=== PATIENT | male | born 1935 | race Caucasian/White ===

== ENCOUNTER 2016-07-17 17:44 | Inpatient (IN) | payer OTHER ==
[~2016-07-17] VITALS: Ht 182.9 cm; Wt 97.6 kg
[~2016-07-17 17:44] MED LIST: AMOX1TAB43 PO; ASPI81TA28 PO; BENZ100C84 PO; CLR10 PO; DOCU100C31 PO; FERR1TAB23 PO; FINA5TAB PO; FLUT0.15 NAE; LORA-741 PO; MELATAB2 PO; OXGN; POLY3350 PO; PRLSR20 PO; ROPI0.5T15 PO; RRALBUT083 INH; SYMIN160 INH; TRAZ100T29 PO
[2016-07-17] MEDS ORDERED: ALBUT/IPRATROP 3MG/0.5MG NEB 3 ML VIAL INH STA ×2 (18:50→21:42)
--- NOTE | 2016-07-17 19:05 | DIAGNOSTIC IMAGING REPORT ---
CHEST ONE VIEW PORTABLE CLINICAL HISTORY: Torus of breath COMPARISON STUDY: 05/12/2016 FINDINGS: The heart is enlarged. There is radiographic evidence of congestive failure/fluid overload. There are low lung volumes. There is a small left pleural effusion. There is a persistent left basilar airspace opacities..[ IMPRESSION: 1. Cardiomegaly and radiographic evidence of mild congestive failure/fluid overload 2. Small left pleural effusion 3. Low lung volumes 4. Left upper lobe atelectasis/consolidation Electronically signed by: Tyrone Coombs M.D. 07/17/2016 7:04 PM Dictated Date/Time: 07/17/2016 7:03 PM
[2016-07-17] MEDS ORDERED: METHYLPREDNISOLONE 125 MG VIAL IV STA (19:13)
[2016-07-17 19:40] LABS: BASO % 0.1 %; BASO ABS # 0.01 K/uL (0-0.2); COMPLETE YES; EOS % 0.4 %; HEMATOCRIT 38.6 % (42-52); IG% 0.7 %; LYMPH % 7.6 %; LYMPH ABS # 0.93 K/uL (1.2-3.4); MEAN CELL VOLUME 94.1 fL (80-100); MEAN CORPUSCULAR HEMOGLOBIN 31.5 pg (25-34); MEAN CORPUSCULAR HGB CONC 33.4 g/dl (32-36); MEAN PLATELET VOLUME 9.1 fL (7.4-10.4); MONO % 7.5 %; NEUT % 83.7 %; PLATELET COUNT 141 K/uL (130-400); WHITE BLOOD COUNT 12.18 K/uL (4.8-10.8)
[2016-07-17 19:54] LABS: PARTIAL THROMBOPLASTIN RATIO 1.2
[2016-07-17] MEDS ORDERED: SULF800T23 PO (19:59)
[2016-07-17 20:05] LABS: ALT/SGPT 18 U/L (12-78); AST/SGOT 17 U/L (15-37); BLOOD UREA NITROGEN 16 mg/dl (7-18); BUN/CREATININE RATIO 12.3 (10-20); CALCIUM 8.1 mg/dl (8.5-10.1); CARBON DIOXIDE 29 mmol/L (21-32); CHLORIDE 96 mmol/L (98-107); GLUCOSE 109 mg/dl (70-99); POTASSIUM 4.7 mmol/L (3.5-5.1); SODIUM 133 mmol/L (136-145)
[2016-07-17 20:10] LABS: ALB/GLOB RATIO 1.3 (0.9-2); ALKALINE PHOSPHATASE 107 U/L (45-117); CKMB/CK RATIO 2.7 (0-3.0)
[2016-07-17] MEDS ORDERED: OPTIRAY 320 IV PRN (22:15)
--- NOTE | 2016-07-17 22:47 | DIAGNOSTIC IMAGING REPORT ---
CT ANGIOGRAM OF THE CHEST CLINICAL HISTORY: Atypical chest pain and cough. COMPARISON STUDY: Chest x-ray dated 07/17/2016 TECHNIQUE: Following the IV administration of 102 mL of Optiray-320, CT angiogram of the thorax was performed from the thoracic inlet to the lung bases utilizing the pulmonary embolus protocol. Images are reviewed in the axial, sagittal, and coronal planes. IV contrast was administered without complication. MIP imaging was performed. CT DOSE: 636.73 mGy.cm FINDINGS: No pathologically enlarged axillary mediastinal or hilar lymph nodes were visualized. PA sitting thoracic aorta measures 37 mm. No intimal flaps are visualized. There were no pulmonary artery filling defects to indicate acute pulmonary embolism. No pleural effusions are visualized. There is dense bilateral lower lobe atelectasis/consolidation. Evaluation of the pulmonary arteries and the lung parenchyma is somewhat limited due to respiratory motion artifact. There are 2 hepatic hypodensities, the largest of which measures 21 mm. The larger lesion approaches water attenuation likely represents a cyst. The smaller lesion slightly exceeds water attenuation, and is therefore indeterminate. There is fatty atrophy the pancreas. There is marked tracheomalacia. The AP diameter of the trachea is 3 mm IMPRESSION: 1. No CT evidence of acute pulmonary embolism 2. Marked tracheomalacia 3. Dense bilateral lower lobe atelectasis/consolidation Electronically signed by: Tyrone Coombs M.D. 07/17/2016 10:45 PM Dictated Date/Time: 07/17/2016 10:40 PM
[2016-07-17] MEDS ORDERED: PIPERACILLIN/TAZOBACTAM 4.5 GM/100ML D5W IV STA (23:20)
--- NOTE | 2016-07-17 23:22 | EMERGENCY ROOM VISIT NOTE ---
History Report prepared by Joan: Priyanka Geller Under the Supervision of: Dr. Mahamed Renteria D.O. First contact with patient: 18:22 Chief Complaint: SHORTNESS OF BREATH Stated Complaint: SOB History of Present Illness The patient is a 81 year old male who presents to the Emergency Room with complaints of worsening shortness of breath beginning today. The patient states that he is having trouble breathing. For the past 2 weeks the patient has experienced shortness of breath and a productive cough with clear sputum. He states that today his Pulse Ox dropped to 72%. His family that was home with him put him on his at home oxygen of 3 liters and gave him a nebulizer treatment. During this drop in his oxygen stats, the patient's family states that he turned blue. The patient notes that in April he had similar symptoms. He denies recent illness or exposure to illness. Source of History: patient Onset: today Position: other (global) Quality: other (shortness of breath) Timing: worsening Associated Symptoms: + cough Note: Patient notes sputum with cough and trouble breathing. Review of Systems See HPI for pertinent positives & negatives. A total of 10 systems reviewed and were otherwise negative. Past Medical & Surgical Medical Problems: (1) Collapsed lung (2) COPD (chronic obstructive pulmonary disease) (3) Diabetes mellitus, new onset (4) Pneumonia (5) Respiratory distress Family History Patient reports no known family medical history. Social History Smoking Status: Former Smoker Marital Status: Housing Status: lives with family Occupation Status: retired Current/Historical Medications Scheduled Aspirin (Aspirin Ec), 81 MG PO DAILY Budesonide/Formoterol Fumarate (Symbicort 160/4.5 Inhaler ), 2 PUFFS INH BID Ferrous Sulfate (Iron), 325 MG PO Q2D Finasteride (Proscar), 5 MG PO DAILY Fluticasone Propionate (Nasal) (Flonase Allergy Relief), 2 SPRAY WILLY DAILY Loratadine (Claritin), 10 MG PO DAILY Lorazepam (Ativan), 1 MG PO HS Melatonin (Melatonin Maximum Strengt), 5 MG PO HS Omeprazole (Prilosec), 20 MG PO DAILY Oxygen (Oxygen), 3 LITERS NA CONTINOUS Polyethylene Glycol 3350 (Polyethylene Glycol 3350), 17 GM PO DAILY Ropinirole (Requip), 0.5 MG PO DAILY@ NOON Ropinirole (Requip), 1 MG PO HS Sulfa/Trimethoprim (Bactrim Ds 800MG/160MG), 1 TAB PO BID Trazodone Hcl (Trazodone), 100 MG PO HS Scheduled PRN Albuterol Sulf (Albuterol Sulfate), 3 ML INH QID PRN for SOB/Wheezing Allergies Coded Allergies: Ciprofloxacin (Unverified Allergy, Intermediate, unknown, 07/17/16) Nitrofurantoin (Unverified Allergy, Intermediate, unknown, 07/17/16) Physical Exam Vital Signs Date Time Temp Pulse Resp B/P Pulse Ox O2 Delivery O2 Flow Rate FiO2 07/17/16 23:02 103 22 120/67 91 Nasal Cannula 4.0 07/17/16 23:01 103 07/17/16 21:36 102 91 Nasal Cannula 4.0 07/17/16 21:30 98 27 82 Nasal Cannula 4.0 07/17/16 20:59 118/77 07/17/16 20:30 92 24 91 07/17/16 19:59 127/78 07/17/16 19:30 89 20 83 Nasal Cannula 3.5 07/17/16 19:30 95 22 154/88 93 Nasal Cannula 3.5 07/17/16 19:30 92 Nasal Cannula 3.5 07/17/16 19:12 77 07/17/16 17:57 93 Nasal Cannula 3.5 07/17/16 17:55 Nasal Cannula 4.0 07/17/16 17:53 37.1 64 24 136/81 93 Nasal Cannula 3.5 Physical Exam CONSTITUTIONAL/VITAL SIGNS: Reviewed / noted above. GENERAL: Non-toxic in appearance. INTEGUMENTARY: Warm, dry, and [place]. HEAD: Normocephalic. EYES: without scleral icterus or trauma. ENT/OROPHARYNX: clear and moist. LYMPHADENOPATHY/NECK: Is supple without lymphadenopathy or meningismus. RESPIRATORY: Diminished breath sounds bilaterally. Expiratory wheezing. Mild increase work in breathing. CARDIOVASCULAR: Regular rate and rhythm. GI/ABDOMEN: Soft and nontender. No organomegaly or pulsatile mass. No rebound or guarding. Normal bowel sounds. EXTREMITIES: Warm and well perfused. BACK: No CVA tenderness. NEUROLOGICAL: Intact without focal deficits. PSYCHIATRIC: normal affect. MUSCULOSKELETAL: Normally developed with good muscle tone. Medical Decision & Procedures ER Provider Diagnostic Interpretation: X ray results and stated below per my interpretation and radiology interpretation. CHEST ONE VIEW PORTABLE CLINICAL HISTORY: Torus of breath COMPARISON STUDY: 05/12/2016 FINDINGS: The heart is enlarged. There is radiographic evidence of congestive failure/fluid overload. There are low lung volumes. There is a small left pleural effusion. There is a persistent left basilar airspace opacities..[ IMPRESSION: 1. Cardiomegaly and radiographic evidence of mild congestive failure/fluid overload 2. Small left pleural effusion 3. Low lung volumes 4. Left upper lobe atelectasis/consolidation Electronically signed by: Tyrone Coombs M.D. 07/17/2016 7:04 PM Dictated Date/Time: 07/17/2016 7:03 PM Laboratory Results 07/17/16 19:30 Red Blood Count 4.10, Mean Corpuscular Volume 94.1, Mean Corpuscular Hemoglobin 31.5, Mean Corpuscular Hemoglobin Concent 33.4, Mean Platelet Volume 9.1, Neutrophils (%) (Auto) 83.7, Lymphocytes (%) (Auto) 7.6, Monocytes (%) (Auto) 7.5, Eosinophils (%) (Auto) 0.4, Basophils (%) (Auto) 0.1, Neutrophils # (Auto) 10.19, Lymphocytes # (Auto) 0.93, Monocytes # (Auto) 0.91, Eosinophils # (Auto) 0.05, Basophils # (Auto) 0.01 07/17/16 19:30 Test 07/17/16 19:30 07/17/16 21:57 White Blood Count 12.18 K/uL (4.8-10.8) Red Blood Count 4.10 M/uL (4.7-6.1) Hemoglobin 12.9 g/dL (14.0-18.0) Hematocrit 38.6 % (42-52) Mean Corpuscular Volume 94.1 fL (80-100) Mean Corpuscular Hemoglobin 31.5 pg (25-34) Mean Corpuscular Hemoglobin Concent 33.4 g/dl (32-36) Platelet Count 141 K/uL (130-400) Mean Platelet Volume 9.1 fL (7.4-10.4) Neutrophils (%) (Auto) 83.7 % Lymphocytes (%) (Auto) 7.6 % Monocytes (%) (Auto) 7.5 % Eosinophils (%) (Auto) 0.4 % Basophils (%) (Auto) 0.1 % Neutrophils # (Auto) 10.19 K/uL (1.4-6.5) Lymphocytes # (Auto) 0.93 K/uL (1.2-3.4) Monocytes # (Auto) 0.91 K/uL (0.11-0.59) Eosinophils # (Auto) 0.05 K/uL (0-0.5) Basophils # (Auto) 0.01 K/uL (0-0.2) RDW Standard Deviation 48.5 fL (36.4-46.3) RDW Coefficient of Variation 14.1 % (11.5-14.5) Immature Granulocyte % (Auto) 0.7 % Immature Granulocyte # (Auto) 0.09 K/uL (0.00-0.02) Prothrombin Time 11.0 SECONDS (9.0-12.0) Prothromb Time International Ratio 1.0 (0.9-1.1) Activated Partial Thromboplast Time 30.1 SECONDS (21.0-31.0) Partial Thromboplastin Ratio 1.2 Anion Gap 8.0 mmol/L (3-11) Est Creatinine Clear Calc Drug Dose 54.2 ml/min Estimated GFR () 58.5 Estimated GFR (Non- 50.5 BUN/Creatinine Ratio 12.3 (10-20) Calcium Level 8.1 mg/dl (8.5-10.1) Total Bilirubin 0.8 mg/dl (0.2-1) Aspartate Amino Transf (AST/SGOT) 17 U/L (15-37) Alanine Aminotransferase (ALT/SGPT) 18 U/L (12-78) Alkaline Phosphatase 107 U/L (45-117) Total Creatine Kinase 160 U/L (39-308) Creatine Kinase MB 4.3 ng/ml (0.5-3.6) Creatine Kinase MB Ratio 2.7 (0-3.0) Troponin I < 0.015 ng/ml (0-0.045) Pro-B-Type Natriuretic Peptide 259 pg/ml (0-1800) Total Protein 6.9 gm/dl (6.4-8.2) Albumin 3.9 gm/dl (3.4-5.0) Globulin 3.0 gm/dl (2.5-4.0) Albumin/Globulin Ratio 1.3 (0.9-2) Bedside D-Dimer > 450 ng/mlFEU (0-450) Laboratory results as stated above per my review. Medications Administered Medications (Trade) Dose Ordered Sig/Quiana Route Start Time Stop Time Status Last Admin Dose Admin Albuterol/ Ipratropium (Duoneb) 3 ml NOW STAT INH 07/17/16 18:50 07/17/16 18:55 DC 07/17/16 19:18 3 ML Methylprednisolone Sodium Succinate (Solu-Medrol IV) 125 mg NOW STAT IV 07/17/16 19:13 07/17/16 19:15 DC 07/17/16 19:36 125 MG Albuterol/ Ipratropium (Duoneb) 3 ml NOW STAT INH 07/17/16 21:42 07/17/16 21:44 DC 07/17/16 22:07 3 ML ECG Indication: SOB/dyspnea Rate (beats per minute): 72 Rhythm: normal sinus Findings: no acute ischemic change, no ectopy ED Course 1847: Previous medical records were reviewed. The patient was evaluated in room C2. A complete history and physical examination was performed. 1849: Duoneb 3 ml INH. 1912: Solu-Medrol IV 125 mg IV. 2141: Duoneb 3 ml INH. 2154: Discussed the patient's case with Dr. Kevin Gatica [facility] [place]. The patient will be evaluated for further treatment and disposition. Medical Decision the differential was considered includes acute myocardial infarction, acute coronary syndrome, myocarditis, pericarditis, pericardial effusions /tamponad, esophageal perforation, pulmonary embolism, pneumonia, pneumothorax, cardiomyopathy, congestive heart, anemia , COPD/asthma exacerbation. This is an 81-year-old male who presents to the ED with a chief complaint of shortness of breath and cough for the past 2 weeks. His symptoms worsened over the past couple of days. Today his oxygen saturation on his 3 L of home oxygen dropped to 73%. The patient looks cyanotic according to family. He was given 2 nebulizer treatments and CPAP at home. His symptoms did improve somewhat this. His vital signs are normal. His physical exam reveals diminished breath sounds with expiratory wheezing. EKG shows a normal sinus rhythm. CBC is unremarkable. Chemistry panel was unremarkable. Troponin negative. BNP is normal. Chest x-ray does not show acute disease. D-dimer is elevated. CT scan of the chest did not show PE. There was bilateral consolidation versus atelectasis. The patient was started on IV Zosyn. Blood cultures were ordered. The patient was treated with DuoNeb treatments as well as IV Solu-Medrol. At rest his SATURATIONS REMAIN ABOUT 90-91% ON HIS NORMAL OXYGEN. HE DESATURATES INTO THE 70S WHEN HE GOT UP TO GO THE BATHROOM AND WAS VERY DYSPNEIC. HE WILL BE SEEN BY THE HOSPITALIST FOR FURTHER EVALUATION. Consults Time Called: 2152 Consulting Physician: Dr. Kevin PEREZ Returned Call: [phone] Discussed the patient's case. The patient will be evaluated for further treatment and disposition. Impression Primary Impression: COPD (chronic obstructive pulmonary disease) Additional Impressions: Pneumonia Hypoxia Scribe Attestation The scribe's documentation has been prepared under my direction and personally reviewed by me in its entirety. I confirm that the note above accurately reflects all work, treatment, procedures, and medical decision making performed by me. Departure Information Dispostion Being Evaluated By Hospitalist Referrals Ernie Sanchez D.O. (PCP) Problem Qualifiers
[2016-07-18] VITALS (10 sets, daily range): BP systolic 95–146; BP diastolic 55–84; PULSE 70–111; TEMP 36.3–36.9; O2SAT 90–94; Ht 182.9 cm; Wt 97.6 kg
[2016-07-18] MEDS ORDERED: ACETAMINOPHEN 325 MG TAB PO PRN (00:30)
--- NOTE | 2016-07-18 00:57 | History and Physical ---
History & Physical Date & Time of Service: Jul 18, 2016 at 00:31 Chief Complaint: SOB Primary Care Physician: Ernie Sanchez D.O. History of Present Illness Source: patient, family (son and daughter in law), hospital records Mr Carrington is a pleasant 81 year old male with Hx of COPD and recent pneumonia requiring hospitalization in April. He came to the ER due to worsening shortness of breath and productive cough over the last 2 weeks which was much worse today and despite increasing his oxygen at home by his daughter in law he appeared blue and had a pulse ox down to 72%. Of note during this illness he tripped and fell and was seen at the ID who put him on Bactrim on Saturday to cover for a potential infection of his left elbow abrasion, he reports not sustaining any other injuries from the fall. He specifically denies any headaches, back, hip or wrist pain. The patient lives with his son and daughter in law. Most of the living area is on one floor which is a few steps in from the back. At his baseline he walks with a walker. He can walk a hundred yards and then will get tired and short of breath and has to sit down. Usually he can make it up 8 steps slowly. He is on 3L 02 at home. 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 Father had DC in 50's Social History Smoking Status: Former Smoker (Quit 2009, 30-35 pack-years) Smokeless Tobacco Use: No Alcohol Use: none (previously heavy drinker) Drug Use: none Marital Status: Housing status: lives with family (son + daughter in law) Occupational Status: retired ([employer] years) Immunizations History of Influenza Vaccine: Yes History of Tetanus Vaccine?: Yes History of Pneumococcal: Yes Allergies Coded Allergies: Ciprofloxacin (Unverified Allergy, Intermediate, unknown, 07/17/16) Nitrofurantoin (Unverified Allergy, Intermediate, unknown, 07/17/16) Home Medications Scheduled Aspirin (Aspirin Ec), 81 MG PO DAILY Budesonide/Formoterol Fumarate (Symbicort 160/4.5 Inhaler ), 2 PUFFS INH BID Ferrous Sulfate (Iron), 325 MG PO Q2D Finasteride (Proscar), 5 MG PO DAILY Fluticasone Propionate (Nasal) (Flonase Allergy Relief), 2 SPRAY WILLY DAILY Loratadine (Claritin), 10 MG PO DAILY Lorazepam (Ativan), 1 MG PO HS Melatonin (Melatonin Maximum Strengt), 5 MG PO HS Omeprazole (Prilosec), 20 MG PO DAILY Oxygen (Oxygen), 3 LITERS NA CONTINOUS Polyethylene Glycol 3350 (Polyethylene Glycol 3350), 17 GM PO DAILY Ropinirole (Requip), 0.5 MG PO DAILY@ NOON Ropinirole (Requip), 1 MG PO HS Sulfa/Trimethoprim (Bactrim Ds 800MG/160MG), 1 TAB PO BID Trazodone Hcl (Trazodone), 100 MG PO HS Scheduled PRN Albuterol Sulf (Albuterol Sulfate), 3 ML INH QID PRN for SOB/Wheezing Review of Systems Constitutional: No chills, No fever Eyes: No diplopia, No discharge, No eye pain, No redness, No worsening of vision ENT: + hearing loss (chronic), No nasal symptoms, No sore throat, No trouble swallowing, No unusual epistaxis Respiratory: + cough, + dyspnea at rest, + dyspnea on exertion, + shortness of breath, + sputum, + wheezing, No hemoptysis Cardiovascular: No PND, No chest pain, No claudication, No edema, No orthopnea , No palpitations Abdomen: No GI bleeding, No constipation, No diarrhea, No nausea, No pain, No vomiting Musculoskeletal: + problem reported (left elbow graze), No joint pain, No muscle pain Genitourinary - Male: No dysuria, No hematuria, No urinary frequency Neurologic: + weakness (left sided residual weakness from previous stroke) Psychiatric: + anxiety, No depression symptoms Endocrine: + fatigue, No excessive thirst, No excessive urination Hematologic / Lymphatic: No abnormal bleeding/bruising Integumentary: No itch, No rash Physical Exam Vital Signs Date Time Temp Pulse Resp B/P Pulse Ox O2 Delivery O2 Flow Rate FiO2 07/18/16 00:00 102 20 110/71 90 Nasal Cannula 4.0 07/17/16 23:59 07/17/16 23:02 103 22 120/67 91 Nasal Cannula 4.0 07/17/16 23:01 103 07/17/16 23:00 104 24 91 07/17/16 21:36 102 91 Nasal Cannula 4.0 07/17/16 21:30 98 27 82 Nasal Cannula 4.0 07/17/16 20:59 118/77 07/17/16 20:30 92 24 91 07/17/16 19:59 127/78 07/17/16 19:30 89 20 83 Nasal Cannula 3.5 07/17/16 19:30 95 22 154/88 93 Nasal Cannula 3.5 07/17/16 19:30 92 Nasal Cannula 3.5 07/17/16 19:12 77 07/17/16 17:57 93 Nasal Cannula 3.5 07/17/16 17:55 Nasal Cannula 4.0 07/17/16 17:53 37.1 64 24 136/81 93 Nasal Cannula 3.5 General Appearance: WD/WN, no apparent distress Head: normocephalic, atraumatic Eyes: normal inspection, PERRL, EOMI ENT: normal ENT inspection, pharynx normal Neck: supple, no JVD, no carotid bruits Respiratory/Chest: chest non-tender, no respiratory distress, no accessory muscle use, + decreased breath sounds (left base reduced breath sounds with increased vocal fremitus, no wheezing) Cardiovascular: regular rate, rhythm, no murmur (quiet heart sounds with coarse breathing but no appreciable murmur heard), + abnormal peripheral pulses (weak DP/PT pulses b/l, radial normal) Abdomen/GI: normal bowel sounds, non tender, soft, + distended Back: no CVA tenderness Extremities/Musculoskelatal: no calf tenderness, normal capillary refill, + pedal edema (longstanding bilateral leg edema L > R), + pertinent finding (no hip pain with rotation) 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, no motor/sensory deficits Skin: + pertinent finding (multiple skin abrasions from recent fall over knees and left elbow without cellulitic changes) Diagnostics Laboratory Results Results Past 24 Hours Test 07/17/16 19:30 07/17/16 21:57 Range/Units White Blood Count 12.18 4.8-10.8 K/uL Red Blood Count 4.10 4.7-6.1 M/uL Hemoglobin 12.9 14.0-18.0 g/dL Hematocrit 38.6 42-52 % Mean Corpuscular Volume 94.1 80-100 fL Mean Corpuscular Hemoglobin 31.5 25-34 pg Mean Corpuscular Hemoglobin Concent 33.4 32-36 g/dl Platelet Count 141 130-400 K/uL Mean Platelet Volume 9.1 7.4-10.4 fL Neutrophils (%) (Auto) 83.7 % Lymphocytes (%) (Auto) 7.6 % Monocytes (%) (Auto) 7.5 % Eosinophils (%) (Auto) 0.4 % Basophils (%) (Auto) 0.1 % Neutrophils # (Auto) 10.19 1.4-6.5 K/uL Lymphocytes # (Auto) 0.93 1.2-3.4 K/uL Monocytes # (Auto) 0.91 0.11-0.59 K/uL Eosinophils # (Auto) 0.05 0-0.5 K/uL Basophils # (Auto) 0.01 0-0.2 K/uL RDW Standard Deviation 48.5 36.4-46.3 fL RDW Coefficient of Variation 14.1 11.5-14.5 % Immature Granulocyte % (Auto) 0.7 % Immature Granulocyte # (Auto) 0.09 0.00-0.02 K/uL Prothrombin Time 11.0 9.0-12.0 SECONDS Prothromb Time International Ratio 1.0 0.9-1.1 Activated Partial Thromboplast Time 30.1 21.0-31.0 SECONDS Partial Thromboplastin Ratio 1.2 Sodium Level 133 136-145 mmol/L Potassium Level 4.7 3.5-5.1 mmol/L Chloride Level 96 98-107 mmol/L Carbon Dioxide Level 29 21-32 mmol/L Anion Gap 8.0 3-11 mmol/L Blood Urea Nitrogen 16 7-18 mg/dl Creatinine 1.30 0.60-1.40 mg/dl Est Creatinine Clear Calc Drug Dose 54.2 ml/min Estimated GFR () 58.5 Estimated GFR (Non- 50.5 BUN/Creatinine Ratio 12.3 10-20 Random Glucose 109 70-99 mg/dl Calcium Level 8.1 8.5-10.1 mg/dl Total Bilirubin 0.8 0.2-1 mg/dl Aspartate Amino Transf (AST/SGOT) 17 15-37 U/L Alanine Aminotransferase (ALT/SGPT) 18 12-78 U/L Alkaline Phosphatase 107 45-117 U/L Total Creatine Kinase 160 39-308 U/L Creatine Kinase MB 4.3 0.5-3.6 ng/ml Creatine Kinase MB Ratio 2.7 0-3.0 Troponin I < 0.015 0-0.045 ng/ml Pro-B-Type Natriuretic Peptide 259 0-1800 pg/ml Total Protein 6.9 6.4-8.2 gm/dl Albumin 3.9 3.4-5.0 gm/dl Globulin 3.0 2.5-4.0 gm/dl Albumin/Globulin Ratio 1.3 0.9-2 Bedside D-Dimer > 450 0-450 ng/mlFEU Microbiology Results 07/17/16 Blood Culture, Received Pending 07/17/16 Blood Culture, Received Pending Diagnostic Radiology CHEST ONE VIEW PORTABLE CLINICAL HISTORY: Torus of breath COMPARISON STUDY: 05/12/2016 FINDINGS: The heart is enlarged. There is radiographic evidence of congestive failure/fluid overload. There are low lung volumes. There is a small left pleural effusion. There is a persistent left basilar airspace opacities..[ IMPRESSION: 1. Cardiomegaly and radiographic evidence of mild congestive failure/fluid overload 2. Small left pleural effusion 3. Low lung volumes 4. Left upper lobe atelectasis/consolidation Electronically signed by: Tyrone Coombs M.D. 07/17/2016 7:04 PM Dictated Date/Time: 07/17/2016 7:[address] ANGIOGRAM OF THE CHEST CLINICAL HISTORY: Atypical chest pain and cough. COMPARISON STUDY: Chest x-ray dated 07/17/2016 TECHNIQUE: Following the IV administration of 102 mL of Optiray-320, CT angiogram of the thorax was performed from the thoracic inlet to the lung bases utilizing the pulmonary embolus protocol. Images are reviewed in the axial, sagittal, and coronal planes. IV contrast was administered without complication. MIP imaging was performed. CT DOSE: 636.73 mGy.cm FINDINGS: No pathologically enlarged axillary mediastinal or hilar lymph nodes were visualized. PA sitting thoracic aorta measures 37 mm. No intimal flaps are visualized. There were no pulmonary artery filling defects to indicate acute pulmonary embolism. No pleural effusions are visualized. There is dense bilateral lower lobe atelectasis/consolidation. Evaluation of the pulmonary arteries and the lung parenchyma is somewhat limited due to respiratory motion artifact. There are 2 hepatic hypodensities, the largest of which measures 21 mm. The larger lesion approaches water attenuation likely represents a cyst. The smaller lesion slightly exceeds water attenuation, and is therefore indeterminate. There is fatty atrophy the pancreas. There is marked tracheomalacia. The AP diameter of the trachea is 3 mm IMPRESSION: 1. No CT evidence of acute pulmonary embolism 2. Marked tracheomalacia 3. Dense bilateral lower lobe atelectasis/consolidation Electronically signed by: Tyrone Coombs M.D. 07/17/2016 10:45 PM Dictated Date/Time: 07/17/2016 10:40 PM EKG Normal sinus rhythm Left axis deviation Rate 72 bpm Impression Assessment and Plan 81 yo male with Hx COPD, CVA presents to the ER with hypoxic respiratory failure after two weeks of productive cough illness. Acute on chronic hypoxic respiratory failure - increased O2 requirements secondary to below - maintain O2 sats 88-92% with venturi mask COPD exacerbation - responded well to 125 mg methylprednisone and duonebs in the ER. - Continue methylprednisone @ 40 mg IV Q8H. - Continue Q6HWA duonebs + PRN for wheezing - Incentive spirometry, flutter valve, vibration vest and chest physio Bilateral basal pneumonia - elevated WBC, productive cough, possible aspiration given CVA Hx - Unasyn to cover for aspiration + azithromycin for atypicals. - speech consult - MRSA nose swab Tracheomalacia - present on CT, likely due to smoking causing inflammation - NPO with IVF pending speech and swallow eval in the morning - Consider pulmonology consult pending speech eval Hepatic cyst/mass - O/P GI follow up, LFTs appear WNL Left elbow abrasion - no cellulitic signs - wound care consult Obstructive sleep apnea - Use home CPAP. Restless leg syndrome - Continue ropinirole 0.5mg @ noon, 1 mg HS Anxiety, insomnia - continue lorazepam 0.5mg PO BID + trazodone 100mg PO HS. Clearly both are not great choices given his obstructive sleep apnea however I I am concerned about withdrawal if stopped during this illness. GERD - Switch omeprazole to protonix as per hospital formulary Hx CVA - continue ASA, unsure why he isn't on a statin, will get fasting lipid profile. Code - Discussed with patient and he is able to understand, weigh up, come to a decision and communicate that decision and he does not want to be resuscitated in the event of a cardiac arrest. - DNR. I did not discuss intubation at this time. VTE Prophylaxis - Lovenox 40 mg SQ daily - TEDs + SCDs Disposition - appears stable enough for admission to med/surg as O2 requirement only mildly increased from his home O2 of 3L Pt seen examined - resident note reviewed Presents with worsening SOB - likely due to COPD exacerbation - may have element of PNM O/E AAO x 2 S1.2 r Poor b/l air entry - no clear wheezing NT, ND P: Currently treating for COPD exacerbation and possible PNM - CTA is equivocal stating consolidation vs atelectasis - will place on Unasyn in addition to Zithro rather than Zosyn Cont Elisabeth, 02 protocol and steroids as ordered Level of Care Med/Surg Resuscitation Status FULL RESUSCITATION VTE Prophylaxis VTE Risk Assessment Done? Y/N: Yes Risk Level: Moderate Given or contraindicated: Enoxaparin (Lovenox)SQ, T.E.D. Stockings, SCD's Additional Copies To Ernie Sanchez D.O. Resident Tracking Resident Involvement: Resident Care Provided Care Provided: Adult Hospital Medicine
[2016-07-18] MEDS ORDERED: ROPINIROLE HCL 1 MG TAB PO STA (01:50)
[2016-07-18] MEDS ORDERED: GUAIFENESIN 200 MG TAB PO ONE (02:00)
[2016-07-18] MEDS: SODIUM CHLORIDE 0.9% 1000ML 1,000 ML IV SCH ×4 (03:23→21:12)
[2016-07-18] MEDS: METHYLPREDNISOLONE IV 40 MG in SYRINGE 0 ML IV SCH ×3 (04:53→20:02)
[2016-07-18] MEDS ORDERED: AZITHROMYCIN IV 500 MG in DEXTROSE 5% 250ML 250 ML IV SCH (06:00)
[2016-07-18] MEDS ORDERED: AMPICILLIN/SULBACTAM CONSULT ACTIVE PRN ×2 (06:00)
[2016-07-18] MEDS ORDERED: Azithromycin: PHARMACY CONSULT IN PROGRESS PRN (06:00)
[2016-07-18] MEDS: PANTOprazole SOD 40 MG TAB PO SCH (07:36)
[2016-07-18] MEDS: GUAIFENESIN 200 MG TAB PO SCH ×3 (07:36→21:13)
[2016-07-18] MEDS: FINASTERIDE 5 MG TAB PO SCH (07:36)
[2016-07-18] MEDS: LORATADINE 10 MG TAB PO SCH (07:37)
[2016-07-18] MEDS: FLUTICASONE PROPIONATE NA SPR 16 GM BTL NAE SCH (07:37)
[2016-07-18] MEDS: FERROUS SULFATE 325 MG TAB PO SCH (07:37)
[2016-07-18] MEDS: ASPIRIN 81 MG ECTAB PO SCH (07:37)
[2016-07-18] MEDS: BUDESONIDE/FORMOTEROL FUMARATE 160/4.5 60 PUFFS/INHALER INH SCH ×2 (07:38→21:12)
[2016-07-18] MEDS: ENOXAPARIN 40 MG/0.4 ML SYR SQ SCH (07:50)
[2016-07-18] MEDS: AMPICILLIN/SULBACTAM SOD INJ 3,000 MG in SODIUM CHLORIDE 0.9% 100ML 100 ML IV SCH ×2 (07:50→14:06)
[2016-07-18] MEDS: ALBUT/IPRATROP 3MG/0.5MG NEB 3 ML VIAL INH SCH ×4 (07:57→19:54)
[2016-07-18 08:26] LABS: BASO % 0.1 %; BASO ABS # 0.01 K/uL (0-0.2); COMPLETE YES; EOS % 0.1 %; HEMATOCRIT 36.9 % (42-52); IG% 0.6 %; LYMPH % 3.2 %; LYMPH ABS # 0.43 K/uL (1.2-3.4); MEAN CELL VOLUME 91.6 fL (80-100); MEAN CORPUSCULAR HEMOGLOBIN 30.8 pg (25-34); MEAN CORPUSCULAR HGB CONC 33.6 g/dl (32-36); MEAN PLATELET VOLUME 9.1 fL (7.4-10.4); MONO % 1.8 %; NEUT % 94.2 %; PLATELET COUNT 134 K/uL (130-400); RED BLOOD COUNT 4.03 M/uL (4.7-6.1); WHITE BLOOD COUNT 13.47 K/uL (4.8-10.8)
[2016-07-18 08:56] LABS: BUN/CREATININE RATIO 13.9 (10-20); CALCIUM 8.2 mg/dl (8.5-10.1); CREATININE 1.3 mg/dl (0.60-1.40); POTASSIUM 4.6 mmol/L (3.5-5.1)
[2016-07-18] MEDS: POLYETHYLENE (MIRALAX) 17 GM PACK PO SCH (09:00)
--- NOTE | 2016-07-18 11:06 | PULMONARY CONSULTATION ---
DATE OF CONSULTATION: 07/18/2016 The patient is a very pleasant 81-year-old male who was readmitted to the hospital with shortness of breath and hypoxemia, and Dr. Oneal has asked me to evaluate the patient from a pulmonary standpoint. He had been here in April with pneumonia. Chest x-ray at that time revealed bibasilar pulmonary infiltrates. His sputum grew out strep. It was penicillin sensitive. He was treated with Augmentin and Solu-Medrol, sent home and then developed worsening shortness of breath associated with some hypoxemia and was seen in the Emergency Room again after being discharged. He was seen here on the by Dr. Mahamed Renteria and was noted to be hypoxic and apparently on his pulse oximeter at home his saturation was 72%. He appeared to be blue. He was placed on 3 liters at home, given a nebulizer treatment and admitted to the hospital. Since his admission, he states he feels considerably improved. He is sitting out of bed in the chair. He has had a cough, which is nonproductive. Denies any chest pain, fevers or night sweats. Has not had any weight loss. When I reviewed his records his chest x-ray in April looks about the same as it does now suggesting basilar atelectasis, but he states he has had someone look in his lung in the remote past and [facility] [place] and a [facility] specialist in [place]. He cannot remember the name of the lung specialist. He has not had any aspiration, although he needs to use a chin tuck maneuver after his right hemispheric stroke to prevent aspiration. He never speaks to anybody when he eats. He has not had any hemoptysis. Apparently he tripped and fell and sustained a skin injury and was placed on Bactrim last week for an abrasion of his left elbow. REVIEW OF SYSTEMS: Otherwise, unremarkable. PAST MEDICAL HISTORY: Positive for pneumothorax, he thinks might have been on the left side, chronic obstructive lung disease, right hemisphere stroke with left-sided weakness, injury to his right elbow in the past, restless legs syndrome, obstructive sleep apnea, on CPAP. There is a history of asbestos exposure noted in the record, but he states he may not have ever been exposed to an asbestos except when he worked in a [employer], but that was minimal at that time. He carries a history of chronic obstructive lung disease requiring oxygen. He has had a history of cervical spine surgery as well, and a recent hospitalization for pneumonia. He has had a history of respiratory distress in the past. SOCIAL HISTORY: He has about a [id number] history of cigarette smoking, quit around 2005. He is not an alcohol user. From an occupational standpoint, he worked for about 30 years in a [employer] with significant silica exposure. He said he had worked with asbestos sheets, but never cut them or worked with any powdered asbestos. He is a , has several children who are in good health. 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 He did not have any injuries or significant exposures there. He carries a history of reflux and that has been under good control. ALLERGIES: HE HAS ALLERGIES TO NITROFURANTOIN AND CIPRO, THEIR REACTIONS ARE UNKNOWN. He states he occasionally used Symbicort at home, but not on a regular basis. He on oxygen as well. PHYSICAL EXAMINATION: VITAL SIGNS: Stable. Blood pressure 146/84, his pulse is 90 and regular, respiratory rate 20. He is afebrile, oxygen saturation 93% on room air. His weight is 106 kilograms. His weight was 97.8 kilograms on May 16, so he has had a significant weight gain if the scales are comparable. HEENT: Unremarkable. He has no evidence of thrush. NECK: There is no adenopathy noted. SKIN: There is a scar in the right elbow noted from a previous injury. Left elbow is bandaged. LYMPH NODES: No supraclavicular, axillary or submandibular lymph nodes are noted. CHEST: Shows fairly good expansion with deep inspiration. HEART: Has a regular rate and rhythm with an occasional ectopic beat. No murmurs or gallops are auscultated. LUNGS: Actually fairly clear with a few crackles at the left base posterior. ABDOMEN: Soft, nontender. No organomegaly noted. EXTREMITIES: He has some muscle wasting of the right hand with degenerative disease, some stasis changes of the lower extremities with no cyanosis, clubbing or edema. CT of the chest done on the reveals bibasilar pulmonary infiltrates with no evidence of pulmonary emboli. Several small 21 mm lesions in the liver, probably representing cysts, fatty atrophy of the pancreas was noted and marked tracheomalacia was noted as well with a diameter of the trachea being only 3 mm. White count is 13.47, hemoglobin 12.4 with 94% segmented neutrophils. Chemistry profile looked good with a stable BUN and creatinine. Liver function studies are normal, as is the coagulation profile. EKG revealed normal sinus rhythm with left axis deviation. MRSA DNA surveillance screen is negative. Blood cultures are pending. IMPRESSION: 1. Bilateral lower lobe pneumonia. This really probably has not cleared when one compares the chest x-rays from April until now. I would be concerned about atypical pneumonia or mass-like abnormalities in the lower lobes, especially in a patient with heavy tobacco use and history of silica exposure and possibly asbestos exposure in the past. 2. Chronic obstructive lung disease requiring oxygen at 3 liters per minute. 3. Tracheomalacia noted on the CT scan. 4. Gastroesophageal reflux disease, stable. 5. History of right hemispheric stroke with the risk of aspiration. It is certainly conceivable the bilateral pulmonary infiltrates could be aspiration. They may have cleared and then worsened 2 weeks prior to this admission. RECOMMENDATIONS: 1. Continue with his present medications with good anti-reflux regimen. 2. Add DuoNeb 4 times a day on a regular basis and q. 4 hours p.r.n. 3. Continue on the ampicillin with sulbactam and Zithromax for now, although he may need better staph and gram negative coverage since this needs to be considered a hospital or healthcare facility associated pneumonia since he was hospitalized within 90 days with recurrent pneumonia. Covering for anaerobic organisms would be helpful as well. I would suggest an infectious disease evaluation. 4. Evaluation by Dr. Garcia for consideration for bronchoscopy for evaluation of the trachea for tracheomalacia and for lavage and possible biopsy of the lower lobe infiltrates. Thanks for asking me to evaluate Mr. Carrington and I will be glad to follow long with you during his hospital stay.
[2016-07-18] MEDS: ROPINIROLE HCL 0.25 MG TAB PO SCH (12:54)
[2016-07-18] MEDS ORDERED: NURSING VERBAL MED ORDER ONE ×2 (13:00→16:30)
--- NOTE | 2016-07-18 13:17 | DIAGNOSTIC IMAGING REPORT ---
VIDEO SWALLOW HISTORY: Pneumonia, respiratory distress. Aspiration. TECHNIQUE: Video fluoroscopic evaluation of swallowing was performed in the AP and lateral projections by the speech pathology staff. The patient is fed nectar-thick and thin liquid barium, a barium coated wafer, and barium pudding. FLUOROSCOPY TIME: 2.3 minutes. COMPARISON STUDY: None. FINDINGS: The swallowing mechanics appear normal for age. There is no penetration or aspiration. There is mild disordered esophageal motility IMPRESSION: 1. No aspiration identified. 2. Please see the speech pathologist report for detailed findings and recommendations. Electronically signed by: Tyrone Coombs M.D. 07/18/2016 1:16 PM Dictated Date/Time: 07/18/2016 1:00 PM
[2016-07-18] MEDS ORDERED: NovoLOG PER UNIT CHARGE SC ONE ×2 (13:30→16:45)
[2016-07-18] MEDS ORDERED: GLUCAGON FOR INJ 1 MG VIAL SQ PRN (17:45)
[2016-07-18] MEDS ORDERED: DEXTROSE 50% 50 ML SYR IV PRN (17:45)
[2016-07-18] MEDS ORDERED: GLUCOSE 40% GEL 15 GM TUBE PO PRN (17:45)
[2016-07-18] MEDS ORDERED: GLUCOSE 10 TABS/TUBE PO PRN (17:45)
[2016-07-18] MEDS ORDERED: PIPERACILL/TAZOBAC IV 3.375 GM in DEXTROSE 5% 100ML 100 ML IV SCH (18:30)
[2016-07-18] MEDS ORDERED: VANCOMYCIN INJ 2,200 MG in SODIUM CHLORIDE 0.9% 500ML 500 ML IV SCH (19:00)
[2016-07-18] MEDS ORDERED: VANCOMYCIN CONSULT ACTIVE PRN (20:00)
[2016-07-18] MEDS ORDERED: PIPERACILL/TAZOBAC CONSULT ACTIVE PRN (20:00)
--- NOTE | 2016-07-18 20:59 | Pharmacy Progress Note ---
Pharmacy Antibiotic Consult Date of Service: Jul 18, 2016. Pharmacy Dosing Scope Pharmacy is consulted to initiate Vancomycin IV dosing therapy, order appropriate labs and adjust drug dose/frequency for Pneumonia. Subjective The patient is a 81 year old male admitted on Jul 18, 2016 at 00:26. Objective Height (Feet): 6 Height (Inches): 0.00 Weight (Kilograms): 106.000 Lab Results (24hrs): Laboratory Tests Test 07/18/16 08:10 BUN/Creatinine Ratio 13.9 Blood Urea Nitrogen 18 mg/dl Creatinine 1.30 mg/dl White Blood Count 13.47 K/uL Red Blood Count 4.03 M/uL Hemoglobin 12.4 g/dL Hematocrit 36.9 % Mean Corpuscular Volume 91.6 fL Mean Corpuscular Hemoglobin 30.8 pg Mean Corpuscular Hemoglobin Concent 33.6 g/dl Platelet Count 134 K/uL Mean Platelet Volume 9.1 fL Neutrophils (%) (Auto) 94.2 % Lymphocytes (%) (Auto) 3.2 % Monocytes (%) (Auto) 1.8 % Eosinophils (%) (Auto) 0.1 % Basophils (%) (Auto) 0.1 % Neutrophils # (Auto) 12.70 K/uL Lymphocytes # (Auto) 0.43 K/uL Monocytes # (Auto) 0.24 K/uL Eosinophils # (Auto) 0.01 K/uL Basophils # (Auto) 0.01 K/uL Micro Results: Blood cultures pending x 2. Recent Pertinent Medications Patient was on Unasyn 3 gm IV q6h and Zithromax 500 mg IV daily. Both discontinued. Now on Zosyn 3.375 gm IV q8h extended infusion and Vancomycin per pharmacy consult. Assessment & Plan * Loading dose: Vancomycin 2200 mg (21 mg/kg) IV x 1 started at 2000 tonight. * Then Vancomycin 1600 mg IV q20h ordered to start at 1200 tomorrow. * Estimated pharmacokinetics: Ke = 0.044/hr, t1/2 = 15.8 hrs, Vd = 0.7 L/kg * Goal trough level estimate: between 15- 20 mcg/mL. * Trough Vanco level has been ordered for 3/4 before dose at 0400. Pharmacy will continue to follow and will adjust dose/frequency as necessary. Thank you
[2016-07-18] MEDS ORDERED: NON-FORMULARY MEDICATION (Melatonin (Melatonin Maximum Strengt) 5 MG) PO SCH (21:00)
[2016-07-18] MEDS: INSULIN ASPART 100 UNITS/ML 3 ML PEN SC SCH (21:11)
[2016-07-18] MEDS: LORAZEPAM 0.5 MG TAB PO SCH (21:12)
[2016-07-18] MEDS: TRAZODONE HCL 100 MG TAB PO SCH (21:12)
[2016-07-18] MEDS: ROPINIROLE HCL 1 MG TAB PO SCH (21:13)
--- NOTE | 2016-07-18 22:12 | Progress Note ---
Progress Note Date of Service Jul 18, 2016. Progress Note Pt admitted after midnight. H&P reviewed in chart and with pt in person, examined. Feeling better since admission. Reviewed Pulm consult. Change abx coverage to broaden with Zosyn and Vanco for HCAP, stop Azithro and Unasyn. For severe tracheomalacia and persistent bibasilar opacities, will consult CT Surgery as per Pulm recommendation Added on accuchecks and SSI for hyperglycemia, no known h/o DMII but is on IV steroids causing hyperglycemia
[2016-07-18] MEDS: PIPERACILL/TAZOBAC IV 3.375 GM in DEXTROSE 5% 100ML 100 ML IV SCH (23:38)
[2016-07-19] VITALS (9 sets, daily range): BP systolic 109–133; BP diastolic 63–84; PULSE 69–125; TEMP 36.5–36.7; O2SAT 91–95
[2016-07-19] MEDS ORDERED: BENZONATATE 100MG CAP PO ONE (02:00)
[2016-07-19] MEDS: METHYLPREDNISOLONE IV 40 MG in SYRINGE 0 ML IV SCH ×2 (04:16→12:11)
[2016-07-19] MEDS: DEXTROMETHORPHAN POLYMR COMPLX 30 MG/5 ML UDP PO PRN ×2 (04:16→10:50)
[2016-07-19] MEDS: SODIUM CHLORIDE 0.9% 1000ML 1,000 ML IV SCH ×2 (06:10→14:36)
--- NOTE | 2016-07-19 07:26 | PROGRESS NOTE ---
DATE: 07/19/2016 HISTORY OF PRESENT ILLNESS: The patient is comfortable this morning, although he continues to have cough producing some thick sputum. He is on CPAP at the present time. He states he is fairly comfortable. He denies chest pain, was out of bed for an extended period of time yesterday without difficulty. He states he is bit thirsty this morning. I see from Dr. Garcia's orders he is n.p.o. and I believe scheduled prepped for bronchoscopy this morning to assess the pulmonary infiltrates lower lobe that have not improved since April. PHYSICAL EXAMINATION: VITAL SIGNS: Stable and he is afebrile. Blood pressure 112/63, oxygen saturation 91% on 3 liters. I\T\O is 2756 in and 900 out yesterday. Since been that, he had 1200 out with 2225 in. Weight 106 pounds on the . GENERAL: According to nurses' notes, apparently he did fairly well. He has no pain in the left elbow. HEENT: Unremarkable. CPAP is in place, so I did not evaluate his nose. Posterior pharynx looks good with no thrush noted. No adenopathy is noted anywhere. HEART: Regular rate and rhythm, second heart sound normal. LUNGS: Reveal a few crackles at the lung bases bilaterally, especially left lower lobe. No fremitus is noted. ABDOMEN: Soft, nontender. No organomegaly noted. EXTREMITIES: He has no cyanosis, clubbing or edema. LABORATORY AND IMAGING DATA: PRP is pending. Coagulation profile on looked good. Blood count is pending for today. MRSA DNA surveillance screen by DNA probe is negative. Sputum Gram Stain from the yesterday and blood cultures from the are pending as well. He had a video swallow done. He is known to have some dysfunction with swallowing that is why he uses a chin tuck maneuver. There is no aspiration noted. No penetration. There is some mild disordered esophageal motility noted on the video swallow. CT revealed bilateral pulmonary infiltrates consistent with pneumonia with tracheomalacia as well. IMPRESSION: 1. Bilateral pulmonary infiltrates lower lobe. 2. Chronic obstructive lung disease. 3. 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 4. Obstructive sleep apnea. 5. History of stroke. RECOMMENDATIONS: 1. At this point, I think the Tessalon Perles could be discontinued and the Delsym could be discontinued. 2. Continue on his present antimicrobial agents. Good glucose control. 3. Continue on the DuoNeb 4 times a day as needed and the Symbicort. 4. Obtain a procalcitonin level. It has been reported in the literature to be an adjunct to assessing people for lower respiratory tract infections or sepsis. If it is positive, it suggests he probably has pneumonia. If it is negative, then these infiltrative processes may be just atelectasis or other etiology. The bronchoscopy will help with that since probable transbronchial biopsies of the lower lobes and bronchoalveolar lavage of the lower lobes will be done by Dr. Garcia today. Overall, the patient is stable.
[2016-07-19 07:29] LABS: COMPLETE YES; IG% 0.6 %; LYMPH ABS # 0.46 K/uL (1.2-3.4); MEAN CELL VOLUME 92.8 fL (80-100); MEAN CORPUSCULAR HEMOGLOBIN 30.9 pg (25-34); MEAN CORPUSCULAR HGB CONC 33.3 g/dl (32-36); MONO % 3.3 %; NEUT % 93.1 %; PLATELET COUNT 145 K/uL (130-400); RED BLOOD COUNT 3.88 M/uL (4.7-6.1); WHITE BLOOD COUNT 15.38 K/uL (4.8-10.8)
[2016-07-19] MEDS: ALBUT/IPRATROP 3MG/0.5MG NEB 3 ML VIAL INH SCH ×4 (07:35→20:01)
[2016-07-19 08:02] LABS: BUN/CREATININE RATIO 16.7 (10-20); CALCIUM 7.9 mg/dl (8.5-10.1); CREATININE 1.3 mg/dl (0.60-1.40); MAGNESIUM 2.5 mg/dl (1.8-2.4); POTASSIUM 4.4 mmol/L (3.5-5.1)
[2016-07-19] MEDS: PIPERACILL/TAZOBAC IV 3.375 GM in DEXTROSE 5% 100ML 100 ML IV SCH ×2 (08:09→16:18)
[2016-07-19] MEDS: INSULIN ASPART 100 UNITS/ML 3 ML PEN SC SCH ×4 (08:11→21:04)
[2016-07-19] MEDS ORDERED: BENZONATATE 100MG CAP PO SCH (09:00)
--- NOTE | 2016-07-19 09:15 | Clinical Documentation Query ---
CLINICAL DOCUMENTATION QUERY Pulmonology consult states: I would be concerned about atypical pneumonia or mass-like abnormalities in the lower lobes, especially in a patient with heavy tobacco use and history of silica exposure and possibly asbestos exposure in the past. It is certainly conceivable the bilateral pulmonary infiltrates could be aspiration. They may have cleared and then worsened 2 weeks prior to this admission. Continue on the ampicillin with sulbactam and Zithromax for now, although he may need better staph and gram negative coverage since this needs to be considered a hospital or healthcare facility associated pneumonia since he was hospitalized within 90 days with recurrent pneumonia. Covering for anaerobic organisms would be helpful as well. I would suggest an infectious disease evaluation. In your clinical opinion is this patient being managed for: ( x ) Gram negative, or Staphylococcal pneumonia in setting of HCAP ( ) Not Agree Please clarify and document your clinical opinion in the progress notes and discharge summary. Terms such as "probable", "suspected", "likely", "questionable", "possible", or "still to be ruled out" are acceptable. IF IN AGREEMENT, YOU MUST DOCUMENT ABOVE DIAGNOSTIC STATEMENT IN DAILY PROGRESS NOTES AND DISCHARGE SUMMARY. This document is not part of the patient's record. Thank You, Yung Geiger, JEWELL [phone]
[2016-07-19] MEDS: FINASTERIDE 5 MG TAB PO SCH (10:10)
[2016-07-19] MEDS: GUAIFENESIN 200 MG TAB PO SCH ×3 (10:11→20:35)
[2016-07-19] MEDS: FLUTICASONE PROPIONATE NA SPR 16 GM BTL NAE SCH (10:12)
[2016-07-19] MEDS: BUDESONIDE/FORMOTEROL FUMARATE 160/4.5 60 PUFFS/INHALER INH SCH ×2 (10:12→20:33)
[2016-07-19] MEDS: LORATADINE 10 MG TAB PO SCH (10:13)
[2016-07-19] MEDS: ASPIRIN 81 MG ECTAB PO SCH (10:13)
[2016-07-19] MEDS: ENOXAPARIN 40 MG/0.4 ML SYR SQ SCH (10:14)
[2016-07-19] MEDS: PANTOprazole SOD 40 MG TAB PO SCH (10:14)
[2016-07-19] MEDS: POLYETHYLENE (MIRALAX) 17 GM PACK PO SCH (10:15)
[2016-07-19] MEDS: VANCOMYCIN INJ 1,600 MG in SODIUM CHLORIDE 0.9% 500ML 500 ML IV SCH (12:11)
[2016-07-19] MEDS: ROPINIROLE HCL 0.25 MG TAB PO SCH (12:11)
--- NOTE | 2016-07-19 15:54 | Anesthesiology Progress Note ---
Anesthesia Progress Note Date of Service Jul 19, 2016. Progress Notes This is an 81 y/o w male w/ tracheomalacia presenting for Flexible and rigid bronchoscopy w/tracheal stent placement. 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 DM as a result /hyperglycemia. Pt also has bibasilar pneumonia.Discussed anesthesia w/ pt all questions answered. Informed consent obtained. I explained to the pt he would be reevaluated by my colleague in am to see if he was fit for the OR. I have discussed this w/Dr Hernandez, in light of the fact of the pt's pneumonia.
--- NOTE | 2016-07-19 16:10 | SURGICAL CONSULTATION ---
DATE OF CONSULTATION: 07/19/2016 REASON FOR CONSULTATION: Tracheomalacia. 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 He underwent a CT scan on 07/17/2016 which showed bibasilar infiltrates with small effusions and also had a significant degree of tracheomalacia which actually was fairly lengthy and several centimeters in the trachea, although it did not appear to involve the right or left mainstem bronchus. His esophagus is also noted to be dilated but a video thoracoscopic swallow did not show any obvious stenoses or masses. His esophageal function actually looked pretty good. I have been asked to comment on this tracheomalacia. PAST MEDICAL HISTORY: 1. Significant history of cigarette smoking (quit several years ago but has probably a [id number] history). 2. Chronic obstructive pulmonary disease. 3. Gastroesophageal reflux disease. 4. Cerebrovascular disease with a right hemispheric cerebrovascular accident in resultant left-sided weakness, particularly in his upper arm. 5. Persistent bilateral lower lobe infiltrates. 6. Cervical disc disease in the past. 7. Sleep apnea. 8. Restless leg syndrome. 9. History of a pneumothorax (questionable spontaneous). PAST SURGICAL HISTORY: Chest tube insertion. MEDICATIONS: Please see home reconciliation. ALLERGIES: CIPRO AND NITROFURANTOIN. 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 He started smoking at age 8 and smoked for at least 60 years, more than a pack a day. He quit several years ago. He is currently , lives alone. He was twice. He has 2 biological children and they are healthy. He has 4 adopted children that he is close to. He is independent with activities of daily living, but his family is very devoted to him. FAMILY MEDICAL HISTORY: His 2 children are healthy. His father in his 50s from apparent coronary artery disease and myocardial infarction. Mother lived to her late 80s and of "natural causes". REVIEW OF SYSTEMS: The patient worked in a [employer] for well over 30 years and states he was exposed to some asbestos, but was never aerosolized. He states that he inhaled "silica". His shortness of breath has worsened over the last few months. He does have a productive cough on occasion and this has changes with antibiotics. He does use a nebulizer with good effect at home. He uses BiPAP at night. He is of course retired. The patient has been more short of breath. He does have a productive cough on occasion. He denies any weight loss but states that he does have chills and fevers and sweats and has lower extremity edema. He denies any visual or auditory symptoms. He does complain of dyspnea on exertion which has worsened with a cough productive of now whitish sputum. He has had yellow and green sputum in the past. He denies hemoptysis. He denies palpitations or chest pain per se. He denies any GI complaints such as nausea or vomiting, occasionally gets constipation. He denies any hematuria or dysuria. He has had no new neurologic events, although he did suffer right hemispheric cerebrovascular accident in the past and had some left upper extremity weakness. He also has problems with his right hand which I think is arthritic. He is right handed. PHYSICAL EXAMINATION: GENERAL: This is a 6 feet, 234 pound white male, who wears glasses. HEENT: His extraocular movements are intact. Pupils are equal, round and reactive. Sclerae are anicteric. He has no nasolabial flattening. His tongue is midline. He is edentulous. Oral mucosa is a bit dry, but without lesions. NECK: Supple. He has no neck vein distention. I detect no lymphadenopathy in the supraclavicular, cervical or axillary areas. He has no carotid bruits. LUNGS: He does have decreased breath sounds in both bases, the is a bit more pronounced in the right. He has no wheezing. HEART: He has a regular rate and rhythm of his heart with fairly distant heart sounds. ABDOMEN: Obese but soft with some tympany, but nontender. I feel no evidence of abdominal aortic aneurysm. EXTREMITIES: I can palpate femoral pulses. I had a bit difficulty palpating his pedal pulses, but he does have palpable dorsalis pedis, although they are diminished. He has no joint effusions. NEUROLOGIC: He is awake and alert. He does have weakness of his left upper extremity. He can move all 4 extremities against gravity. He has decreased range of motion of the left elbow and the wrist. ASSESSMENT AND PLAN: Obvious tracheomalacia, but I think his clinical signs also are compatible with this. I had a long discussion with the patient, and I think placing an endotracheal stent would be helpful for his symptoms. I will be very curious to see if his infiltrates improve.
[2016-07-19] MEDS: ROPINIROLE HCL 1 MG TAB PO SCH (20:34)
[2016-07-19] MEDS: TRAZODONE HCL 100 MG TAB PO SCH (20:35)
[2016-07-19] MEDS: LORAZEPAM 0.5 MG TAB PO SCH (20:37)
--- NOTE | 2016-07-19 20:38 | Hospitalist Progress Note ---
Hospitalist Progress Note Date of Service Jul 19, 2016. Subjective Pt evaluation today including: conversation w/ patient, conversation w/ family , physical exam, chart review, lab review, conversation w/ wardrobe image consultant (CT Surgery) PO Intake: mindy po Breathing and cough are about the same today. Plan for endotracheal stent tomorrow. Constitutional: No fever Cardiovascular: No chest pain Abdomen: No pain All Other Systems: Reviewed and Negative Objective Vital Signs Date Time Temp Pulse Resp B/P Pulse Ox O2 Delivery O2 Flow Rate FiO2 07/19/16 20:02 73 16 95 Nasal Cannula 3.0 07/19/16 16:00 94 Room Air 3.0 07/19/16 15:59 36.5 74 18 118/63 94 Room Air 07/19/16 15:24 69 16 93 BiPAP/CPAP 3.0 07/19/16 11:26 72 16 94 Nasal Cannula 3.0 07/19/16 07:50 Nasal Cannula 3.0 07/19/16 07:35 72 16 94 Nasal Cannula 3.0 07/19/16 07:02 36.5 78 16 133/84 93 BiPAP 07/19/16 00:00 91 Nasal Cannula 3.0 BiPAP 07/18/16 23:41 36.6 79 20 112/63 91 Physical Exam General Appearance: WD/WN, no apparent distress Eyes: normal inspection, sclerae normal ENT: pharynx normal Neck: trachea midline Respiratory/Chest: no respiratory distress, no accessory muscle use, + decreased breath sounds (at bases), + wheezing (scattered wheezes exp) Cardiovascular: regular rate, rhythm, no edema, no gallop, no murmur Abdomen: normal bowel sounds, non tender, soft, no pulsatile mass Extremities: non-tender, normal inspection, no pedal edema, no calf tenderness Neurologic/Psychiatric: alert, normal mood/affect Skin: normal color, warm/dry, no rash, + pertinent finding (scattered ecchymoses and thin skin) Laboratory Results Last 24 Hours Test 07/19/16 07:16 07/19/16 08:06 07/19/16 11:14 07/19/16 16:32 White Blood Count 15.38 K/uL Red Blood Count 3.88 M/uL Hemoglobin 12.0 g/dL Hematocrit 36.0 % Mean Corpuscular Volume 92.8 fL Mean Corpuscular Hemoglobin 30.9 pg Mean Corpuscular Hemoglobin Concent 33.3 g/dl Platelet Count 145 K/uL Mean Platelet Volume 9.0 fL Neutrophils (%) (Auto) 93.1 % Lymphocytes (%) (Auto) 3.0 % Monocytes (%) (Auto) 3.3 % Eosinophils (%) (Auto) 0.0 % Basophils (%) (Auto) 0.0 % Neutrophils # (Auto) 14.32 K/uL Lymphocytes # (Auto) 0.46 K/uL Monocytes # (Auto) 0.51 K/uL Eosinophils # (Auto) 0.00 K/uL Basophils # (Auto) 0.00 K/uL RDW Standard Deviation 47.5 fL RDW Coefficient of Variation 14.0 % Immature Granulocyte % (Auto) 0.6 % Immature Granulocyte # (Auto) 0.09 K/uL Sodium Level 138 mmol/L Potassium Level 4.4 mmol/L Chloride Level 103 mmol/L Carbon Dioxide Level 26 mmol/L Anion Gap 9.0 mmol/L Blood Urea Nitrogen 22 mg/dl Creatinine 1.30 mg/dl Est Creatinine Clear Calc Drug Dose 54.2 ml/min Estimated GFR () 58.5 Estimated GFR (Non- 50.5 BUN/Creatinine Ratio 16.7 Random Glucose 201 mg/dl Calcium Level 7.9 mg/dl Magnesium Level 2.5 mg/dl Procalcitonin < 0.05 ng/mL Bedside Glucose 199 mg/dl 224 mg/dl 225 mg/dl Assessment and Plan 81 yo male with Hx COPD with chronic respiratory failure, CVA, M[place]LIN, RLS, BPH, Anemia, DMII, presents to the ER with acute hypoxemic respiratory failure after two weeks of productive cough illness with bibasilar suspected PNA vs atelectasis, with severe tracheomalacia. Acute on chronic hypoxemic respiratory failure, COPD exacerbation, Suspected bibasilar PNA vs atelectasis, Severe tracheomalacia-sats in 70s at home, now improved. Previous admission with similar appearing imaging, likely never resolved. Video swallow w/o evidence of aspiration. With leukocytosis - maintain O2 sats >92% - responded well to 125 mg methylprednisone and duonebs - Continue Solu Medrol @ 40 mg IV Q8H and taper down. - Continue Q6HWA duonebs + PRN for wheezing, continue SYmbicort - Incentive spirometry, flutter valve, vibration vest and chest PT - continue Zosyn, Vanco for broad coverage -Plan for endotracheal stent tomorrow to see if helps improve bibasilar atelectasis -Appreciate CT Surgery and Pulm consults Obstructive sleep apnea - Use home CPAP. Restless leg syndrome - Continue ropinirole 0.5mg @ noon, 1 mg HS Anxiety, insomnia - continue lorazepam 0.5mg PO BID + trazodone 100mg PO HS-ok to use if has CPAP in place GERD - PPI Hx CVA - continue ASA -not on statin--> will find out why DMII with hyperglycemia induced by IV steroids: HgbA1C 6.7% 04/2016 -diet controlled at home -accuchben, FRANCES BPH: -continue finasteride Anemia-mild, -continue Fe tabs Code - DNR VTE Prophylaxis - Lovenox 40 mg SQ daily - TEDs + SCDs Disposition - appears stable enough for admission to med/surg as O2 requirement only mildly increased from his home O2 of 3L Pt seen examined - resident note reviewed Presents with worsening SOB - likely due to COPD exacerbation - may have element of PNM O/E AAO x 2 S1.2 r Poor b/l air entry - no clear wheezing NT, ND P: Currently treating for COPD exacerbation and possible PNM - CTA is equivocal stating consolidation vs atelectasis - will place on Unasyn in addition to Zithro rather than Zosyn Cont Elisabeth, Patti protocol and steroids as ordered
[2016-07-20] VITALS (11 sets, daily range): BP systolic 98–149; BP diastolic 52–90; PULSE 74–127; TEMP 36.5–36.8; O2SAT 81–98
[2016-07-20] MEDS: PIPERACILL/TAZOBAC IV 3.375 GM in DEXTROSE 5% 100ML 100 ML IV SCH ×3 (01:00→17:48)
[2016-07-20] MEDS: INSULIN ASPART 100 UNITS/ML 3 ML PEN SC SCH ×4 (06:30→21:00)
[2016-07-20] MEDS: ALBUT/IPRATROP 3MG/0.5MG NEB 3 ML VIAL INH SCH ×3 (07:05→20:01)
--- NOTE | 2016-07-20 07:53 | PROGRESS NOTE ---
DATE: 07/20/2016 SUBJECTIVE: The patient is very comfortable this morning on BiPAP. He states he had a good night last night. He continues to have intermittent episodes of coughing, but the sputum is considerably reduced now. He states he feels much better than he did at the time of admission. He slept very well last night. OBJECTIVE: VITAL SIGNS: Stable. He is afebrile, oxygen saturation 92% on 3 liters with BIPAP, blood pressure 109/75 last night. I & O; 3875 in and 2300 out, he has had more in than out over the last several days. We will need to follow his I\T\O carefully. According to nurses' notes he did fairly well yesterday without any particular problems. He has been voiding without difficulty. He has a CPAP in place. HEENT: Posterior pharynx is unremarkable. No thrush. No adenopathy is noted. Expansion of the thorax is good with deep inspiration. HEART: Regular rate and rhythm. LUNGS: Actually reveal very minimal crackles at the lung bases now. ABDOMEN: Soft and nontender. EXTREMITIES: He has no cyanosis, clubbing or edema. LABORATORY DATA: White count was 15.38 yesterday with a hematocrit of 36%. CBC is pending for today as is the PRP. Procalcitonin was less than 0.05 suggesting this may not be a pulmonary infection. Coagulation profile on the was unremarkable. Sputum Gram stain from the 18 of July revealed many epithelial cells, some inflammatory cells and gram positive bacillus, but it probably is a contaminated specimen. IMPRESSION: 1. Bibasilar infiltrates, this has persisted. Certainly need to be concerned about malignancy or atelectasis. The fact that the procalcitonin is unremarkable, suggestive of may not be an infection. 2. Chronic obstructive lung disease with exacerbation. 3. History of right hemispheric stroke. RECOMMENDATIONS: 1. At this point, I will continue with his present medications. I changed the methylprednisolone to prednisone 25 mg daily. 2. I think the vancomycin could be discontinued. There is no evidence of staph at t his point; this is from what I can find from the records. I would continue on the Zosyn because of the possibility of an aspiration pneumonitis until the bronchoscopy, bronchoalveolar lavage and biopsy returns. 3. Continue on the Symbicort; I think that has helped and use the DuoNeb 4 times a day and then q. 4 hours p.r.n. Overall today, he looks improved. THAIS
[2016-07-20 08:49] LABS: COMPLETE YES; HEMATOCRIT 36.1 % (42-52); IG% 0.9 %; LYMPH % 4.5 %; LYMPH ABS # 0.66 K/uL (1.2-3.4); MEAN CELL VOLUME 95.3 fL (80-100); MEAN CORPUSCULAR HEMOGLOBIN 31.4 pg (25-34); MEAN PLATELET VOLUME 9.2 fL (7.4-10.4); MONO % 5.7 %; NEUT % 88.9 %; PLATELET COUNT 164 K/uL (130-400); RED BLOOD COUNT 3.79 M/uL (4.7-6.1); WHITE BLOOD COUNT 14.78 K/uL (4.8-10.8)
[2016-07-20] MEDS: LORATADINE 10 MG TAB PO SCH (09:00)
[2016-07-20] MEDS: FERROUS SULFATE 325 MG TAB PO SCH (09:00)
[2016-07-20] MEDS: POLYETHYLENE (MIRALAX) 17 GM PACK PO SCH (09:00)
[2016-07-20] MEDS: ASPIRIN 81 MG ECTAB PO SCH (09:00)
[2016-07-20] MEDS: FINASTERIDE 5 MG TAB PO SCH (09:00)
[2016-07-20] MEDS: PANTOprazole SOD 40 MG TAB PO SCH (09:00)
[2016-07-20] MEDS: GUAIFENESIN 200 MG TAB PO SCH ×3 (09:00→21:23)
[2016-07-20 09:25] LABS: BUN/CREATININE RATIO 17.3 (10-20); CREATININE 1.2 mg/dl (0.60-1.40); MAGNESIUM 2.5 mg/dl (1.8-2.4); POTASSIUM 4.4 mmol/L (3.5-5.1)
[2016-07-20] MEDS: METHYLPREDNISOLONE IV 40 MG in SYRINGE 0 ML IV SCH ×2 (09:30→21:20)
[2016-07-20] MEDS: VANCOMYCIN INJ 1,600 MG in SODIUM CHLORIDE 0.9% 500ML 500 ML IV SCH (09:32)
[2016-07-20] MEDS: BUDESONIDE/FORMOTEROL FUMARATE 160/4.5 60 PUFFS/INHALER INH SCH ×2 (09:35→21:22)
[2016-07-20] MEDS: FLUTICASONE PROPIONATE NA SPR 16 GM BTL NAE SCH (09:36)
[2016-07-20] MEDS: ENOXAPARIN 40 MG/0.4 ML SYR SQ SCH (09:39)
[2016-07-20] MEDS ORDERED: REMIFENTANIL 1 MG VIAL ONE (10:41)
[2016-07-20] MEDS ORDERED: CLINDAMYCIN PHOS 150 MG/ML 2 ML VIAL ONE ×2 (10:42→14:31)
[2016-07-20] MEDS ORDERED: LIDOCAINE HCL 2% 2 ML VIAL (20MG/ML) ONE (10:46)
[2016-07-20] MEDS ORDERED: ESMOLOL HCL 10 MG/ML 10 ML VIAL ONE (10:46)
[2016-07-20] MEDS ORDERED: ROCURONIUM BROMIDE 10 MG/ML 5 ML VIAL ONE (10:46)
[2016-07-20] MEDS ORDERED: FENTANYL CITRATE INJ 50 MCG/1 ML 2 ML VIAL ONE (10:46)
[2016-07-20] MEDS ORDERED: ONDANSETRON INJ 2 MG/ML 2 ML VIAL ONE (10:46)
[2016-07-20] MEDS ORDERED: PROPOFOL IV EMULSION 10 MG/ML 20 ML VIAL IV ONE ×3 (10:46→14:28)
[2016-07-20] MEDS ORDERED: DEXAMETHASONE SOD INJ 4 MG/ML VIAL ONE (10:46)
[2016-07-20] MEDS ORDERED: GLYCOPYRROLATE INJ 0.2 MG/ML VIAL ONE (10:46)
[2016-07-20] MEDS ORDERED: LARYING-O-JET KIT (LTA) EXT ONE ×2 (10:46)
[2016-07-20] MEDS ORDERED: MIDAZOLAM HCL 1 MG/ML 2ML VIAL ONE (10:46)
[2016-07-20] MEDS ORDERED: NEOSTIGMINE METHYLSULFATE 5 MG/5 ML SYR ONE (10:46)
[2016-07-20] MEDS: ROPINIROLE HCL 0.25 MG TAB PO SCH (12:00)
--- NOTE | 2016-07-20 12:33 | History & Physical Bridge Note ---
H&P Re-Evaluation Bridge Note: I have examined the patient, reviewed the History & Physical and in the interval since the performance of the History & Physical I have noted the following changes of clinical significance: No changes noted
--- NOTE | 2016-07-20 14:28 | DIAGNOSTIC IMAGING REPORT ---
Intraoperative fluoroscopic image of the chest CLINICAL HISTORY: Bronchoscopy with stent placement COMPARISON STUDY: Chest CT and chest radiograph July 09, 2016. Fluoroscopy time: 139.1 seconds. FINDINGS: 1 fluoroscopic image of the chest was obtained. A linear metallic density projecting over the lower chest is likely on the patient. This is indeterminate. A stent is not well visualized on this exam but may be present. There is motion artifact on the study. IMPRESSION: Stent not well visualized on this exam due to motion artifact and partial visualization of the chest. Electronically signed by: Irvin Thompson M.D. 07/20/2016 2:27 PM Dictated Date/Time: 07/20/2016 2:24 PM
[2016-07-20] MEDS ORDERED: ALBUTEROL 0.083% NEBU SOLN 3 ML VIAL INH PRN (14:30)
[2016-07-20] MEDS ORDERED: TRAMADOL HCL 50 MG TAB PO PRN (14:30)
[2016-07-20] MEDS ORDERED: ONDANSETRON INJ 2 MG/ML 2 ML VIAL IV PRN (14:45)
[2016-07-20] MEDS ORDERED: ATROPINE SULFATE 0.1 MG/ML 5ML SYR IV PRN (14:45)
[2016-07-20] MEDS ORDERED: FENTANYL CITRATE INJ 50 MCG/1 ML 2 ML VIAL IV PRN (14:45)
--- NOTE | 2016-07-20 15:01 | Anesthesiology Progress Note ---
Anesthesia Post Op Note Date & Time Jul 20, 2016 at 15:00 Vital Signs Pain Intensity: 0 Vital Signs Past 12 Hours Date Time Temp Pulse Resp B/P Pulse Ox O2 Delivery O2 Flow Rate FiO2 07/20/16 14:55 87 18 101/82 94 Nasal Cannula 4 07/20/16 14:45 88 16 90/58 96 CPAP 50 07/20/16 14:35 90 16 113/54 95 CPAP 50 07/20/16 14:25 91 12 99/76 94 CPAP 50 07/20/16 14:15 36.4 92 14 98/59 95 CPAP 50 07/20/16 12:23 36.7 84 20 105/70 90 Nasal Cannula 3 07/20/16 11:40 74 16 94 BiPAP/CPAP 07/20/16 08:00 Room Air 07/20/16 07:28 36.8 80 18 149/90 98 Room Air 07/20/16 07:05 74 16 84 BiPAP/CPAP 07/20/16 04:28 20 Nasal Cannula 3.0 BiPAP Notes Mental Status: alert / awake / arousable, participated in evaluation Pt Amnestic to Procedure: Yes Nausea / Vomiting: adequately controlled Pain: adequately controlled Airway Patency, RR, SpO2: stable & adequate BP & HR: stable & adequate Hydration State: stable & adequate Anesthetic Complications: no major complications apparent
--- NOTE | 2016-07-20 15:02 | DIAGNOSTIC IMAGING REPORT ---
CHEST ONE VIEW PORTABLE CLINICAL HISTORY: s/p tracheal stent COMPARISON STUDY: 07/17/2016 FINDINGS: The cardiac and mediastinal contours remain stable. The reported tracheal stent is not visualized on conventional radiographic imaging. There is no pneumothorax. There are persistent bibasilar opacities.[ IMPRESSION: Persistent bibasal airspace opacities. The reported tracheal stent is not visualized with certainty on conventional radiographic imaging Electronically signed by: Tyrone Coombs M.D. 07/20/2016 3:00 PM Dictated Date/Time: 07/20/2016 2:59 PM
[2016-07-20] MEDS ORDERED: SULFAMETHOXAZOLE/TRIMETHOPRIM DS 800/160MG TAB PO SCH (21:00)
[2016-07-20] MEDS: LORAZEPAM 0.5 MG TAB PO SCH (21:20)
[2016-07-20] MEDS: ROPINIROLE HCL 1 MG TAB PO SCH (21:25)
[2016-07-20] MEDS: TRAZODONE HCL 100 MG TAB PO SCH (21:26)
--- NOTE | 2016-07-20 22:08 | OPERATIVE REPORT ---
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 POSTOPERATIVE DIAGNOSIS: Same. PROCEDURES: 1. Rigid and fiberoptic bronchoscopy. 2. Insertion of a 20 mm x 8 cm tracheal stent under fluoroscopic and bronchoscopic guidance. SURGEON: Dr. Garcia. AUTOMOTIVE DISMANTLER: Adam Baez, respiratory therapy. ANESTHESIA: General anesthesia, intubation initially with rigid bronchoscope and then with an endotracheal tube. 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 CT scan was obtained, the patient was noted to have marked tracheomalacia. I discussed this in detail and felt that we could place a coverage stent and assess his response. He has bilateral lobe infiltrates. I had a long talk with the patient and his son and his [id number], stated that our hope would be to insert the tracheal stent and treat his pneumonias. We would then remove this. I have explained that he is not at an age where we would do any surgical intervention. They are agreeable as the patient has not done well from a pulmonary standpoint and has persistent infiltrates in his lower lobe. On 07/20/2016, the patient was brought to the operating room. I placed a rigid bronchoscope and he had a tremendous amount of sputum in his airways. We lavaged both lung warren and sent this off for culture. I irrigated him clear bilaterally. We were not ventilating him as well as I wanted to, so I removed the rigid scope and put an endotracheal tube and then used a flexible fiberoptic bronchoscope and lavaged the lower lung field copiously. Very thick whitish yellow sputum. We then placed the stent nicely, I was not happy with its appearance. He was a bit slow to wake up from anesthesia but finally settled down and we moved him over to the postanesthesia care unit in stable condition. He really had no blood loss. The stent looked quite good bronchoscopically in the operating room. PROCEDURE IN DETAIL: The patient was brought to the operating room and laid in supine position. General anesthesia induced. A Storz rigid bronchoscope was then placed without difficulty. He had copious amounts of thick tenacious sputum in both lower lung warren and we suctioned this out and sent it for culture. Even with using the jet ventilator, I was not happy with how well we were ventilating him. I finally elected to proceed with insertion of endotracheal tube. A large endotracheal tube was in place, we were able to ventilate him. I went back down with my flexible scope and thoroughly lavaged both lower lung warren. I lavaged both lower lung warren until they were clear. It is important to note we did send this off for culture. I then placed a Jag 0.38 guidewire down without difficulty and removed the flexible bronchoscope. We then hyperventilated him for a few minutes and then removed the endotracheal tube and put the 8 cm x 20 mm stent into position radiographically. I had marked the distal aspect fluoroscopically. We then placed this down and deployed the stent, it went very nicely. I did adjust it a bit with alligator forceps via the bronchoscope and I was quite happy with the way it looked. We saw very little in the way of any bleeding. It appeared to sit nicely well below the cords. I was quite happy with its appearance. I then suctioned out both lung warren thoroughly and then slowly withdrew the bronchoscope. He then had a mask airway on until he awakened and then was placed on supplemental oxygen and transferred back to the postanesthesia care unit in stable condition. I attest to the content of the Intraoperative Record and any orders documented therein. Any exceptio ns are noted below.
--- NOTE | 2016-07-20 22:37 | Hospitalist Progress Note ---
Hospitalist Progress Note Date of Service Jul 20, 2016. Subjective Pt evaluation today including: conversation w/ patient, conversation w/ family , physical exam, chart review, lab review, conversation w/ [employer] ax consultant (CT Surgery), review of inpatient medication list Pt seen this AM early before his bronchoscopy. He was doing ok, some cough but improved SOB. Bronchoscopy apparently had copious thick sputum lavaged out and tracheal stent placed. All Other Systems: Reviewed and Negative Objective Vital Signs Date Time Temp Pulse Resp B/P Pulse Ox O2 Delivery O2 Flow Rate FiO2 07/20/16 20:01 83 18 81 Nasal Cannula 4.0 07/20/16 16:05 127 22 99/61 91 Nasal Cannula 4.0 07/20/16 16:00 92 Nasal Cannula 4.0 07/20/16 15:20 36.5 82 18 98/59 91 Nasal Cannula 4.0 07/20/16 15:05 36.5 84 20 98/56 92 Nasal Cannula 4 07/20/16 14:55 87 18 101/82 94 Nasal Cannula 4 07/20/16 14:45 88 16 90/58 96 CPAP 50 07/20/16 14:35 90 16 113/54 95 CPAP 50 07/20/16 14:30 89 97 50 07/20/16 14:30 89 19 97 BiPAP/CPAP 50 07/20/16 14:25 91 12 99/76 94 CPAP 50 07/20/16 14:15 36.4 92 14 98/59 95 CPAP 50 07/20/16 12:23 36.7 84 20 105/70 90 Nasal Cannula 3 07/20/16 11:40 74 16 94 BiPAP/CPAP 07/20/16 08:00 Room Air 07/20/16 07:28 36.8 80 18 149/90 98 Room Air 07/20/16 07:05 74 16 84 BiPAP/CPAP 07/20/16 04:28 20 Nasal Cannula 3.0 BiPAP 07/20/16 01:37 74 92 BiPAP 07/20/16 00:30 95 Nasal Cannula 3.0 07/19/16 23:57 36.7 125 20 109/75 93 Nasal Cannula 3.0 Physical Exam General Appearance: WD/WN, no apparent distress Eyes: normal inspection, sclerae normal Neck: trachea midline Respiratory/Chest: no respiratory distress, no accessory muscle use, + decreased breath sounds (at bases but improved from previous, some crackles to mid lungs bilat) Cardiovascular: regular rate, rhythm, no edema, no murmur Abdomen: normal bowel sounds, non tender, soft Extremities: normal inspection, no calf tenderness Neurologic/Psychiatric: alert, normal mood/affect Skin: normal color, warm/dry, no rash Laboratory Results Last 24 Hours Test 07/20/16 06:37 07/20/16 08:17 07/20/16 15:10 07/20/16 15:57 Bedside Glucose 211 mg/dl 226 mg/dl 198 mg/dl White Blood Count 14.78 K/uL Red Blood Count 3.79 M/uL Hemoglobin 11.9 g/dL Hematocrit 36.1 % Mean Corpuscular Volume 95.3 fL Mean Corpuscular Hemoglobin 31.4 pg Mean Corpuscular Hemoglobin Concent 33.0 g/dl Platelet Count 164 K/uL Mean Platelet Volume 9.2 fL Neutrophils (%) (Auto) 88.9 % Lymphocytes (%) (Auto) 4.5 % Monocytes (%) (Auto) 5.7 % Eosinophils (%) (Auto) 0.0 % Basophils (%) (Auto) 0.0 % Neutrophils # (Auto) 13.14 K/uL Lymphocytes # (Auto) 0.66 K/uL Monocytes # (Auto) 0.84 K/uL Eosinophils # (Auto) 0.00 K/uL Basophils # (Auto) 0.00 K/uL RDW Standard Deviation 48.8 fL RDW Coefficient of Variation 14.1 % Immature Granulocyte % (Auto) 0.9 % Immature Granulocyte # (Auto) 0.14 K/uL Sodium Level 139 mmol/L Potassium Level 4.4 mmol/L Chloride Level 104 mmol/L Carbon Dioxide Level 25 mmol/L Anion Gap 10.0 mmol/L Blood Urea Nitrogen 21 mg/dl Creatinine 1.20 mg/dl Est Creatinine Clear Calc Drug Dose 58.7 ml/min Estimated GFR () 64.4 Estimated GFR (Non- 55.6 BUN/Creatinine Ratio 17.3 Random Glucose 181 mg/dl Calcium Level 8.0 mg/dl Magnesium Level 2.5 mg/dl Total Bilirubin 0.4 mg/dl Direct Bilirubin 0.2 mg/dl Aspartate Amino Transf (AST/SGOT) 32 U/L Alanine Aminotransferase (ALT/SGPT) 24 U/L Alkaline Phosphatase 85 U/L Total Protein 6.3 gm/dl Albumin 3.3 gm/dl Test 07/20/16 21:28 Bedside Glucose 128 mg/dl Assessment and Plan 81 yo male with Hx COPD with chronic respiratory failure, CVA, MARYLIN, RLS, BPH, Anemia, DMII, presents to the ER with acute hypoxemic respiratory failure after two weeks of productive cough illness with bibasilar suspected PNA vs atelectasis, with severe tracheomalacia. Acute on chronic hypoxemic respiratory failure, COPD exacerbation, Suspected bibasilar PNA vs atelectasis, Severe tracheomalacia-sats in 70s at home, now improved. Previous admission with similar appearing imaging, likely never resolved. Video swallow w/o evidence of aspiration. With leukocytosis - maintain O2 sats >92% - responded well to 125 mg methylprednisone and duonebs - Continue Solu Medrol and taper down. - Continue Q6HWA duonebs + PRN for wheezing, continue SYmbicort - Incentive spirometry, flutter valve, vibration vest and chest PT - continue Zosyn to cover for aspiration PNA, and d/c Vanco - endotracheal stent placed today to see if helps improve bibasilar atelectasis -large amount sputum lavaged but apparently order never placed for cultures and sample was wasted-I tried calling lab at the time I found out about this tonight but was too late -Appreciate CT Surgery and Pulm consults Obstructive sleep apnea - Use home CPAP. Restless leg syndrome - Continue ropinirole 0.5mg @ noon, 1 mg HS Anxiety, insomnia - continue lorazepam 0.5mg PO BID + trazodone 100mg PO HS-ok to use if has CPAP in place GERD - PPI Hx CVA - continue ASA -not on statin possibly due to intolerance DMII with hyperglycemia induced by IV steroids: HgbA1C 6.7% 04/2016 -diet controlled at home -accFRANCES pinzon BPH: -continue finasteride Anemia-mild, -continue Fe tabs Code - DNR VTE Prophylaxis - Lovenox 40 mg SQ daily - TEDs + SCDs Disposition to home when ready DNR
[2016-07-21] VITALS (7 sets, daily range): BP systolic 115–129; BP diastolic 71–75; PULSE 66–74; TEMP 36.7; O2SAT 90–100
[2016-07-21] MEDS: PIPERACILL/TAZOBAC IV 3.375 GM in DEXTROSE 5% 100ML 100 ML IV SCH ×4 (00:12→23:58)
[2016-07-21] MEDS ORDERED: VANCOMYCIN TROUGH SCH (03:30)
--- NOTE | 2016-07-21 06:33 | PULMONARY PROGRESS NOTE ---
DATE: 07/21/2016 HISTORY OF PRESENT ILLNESS: The patient is very comfortable this morning. He states he did well with the procedure yesterday. I reviewed Dr. Garcia's operative record. The patient is awake, alert. When I went in the room, his BiPAP was off and I readjusted that for him. The nasal prongs fit well. He has had minimal cough last night. He states he slept fairly well. PHYSICAL EXAMINATION: VITAL SIGNS: Stable and he is afebrile. His blood pressure is 100/52. Oxygen saturation is 93% on 4 liters, it was stable. IO, 1401 in, 1305 out. No weight has been done since 07/18/2016. HEENT: Nasal cavity looks good with no epistaxis or significant irritation. Posterior pharynx is normal. No subcutaneous emphysema is noted. Expansion of the thorax actually is fairly good with deep inspiration. HEART: Regular rate and rhythm. No murmurs are heard. Second heart sound normal. LUNGS: Reveal decreased breath sounds with a few crackles at the left base posterior. No fremitus is noted. ABDOMEN: Soft, nontender. EXTREMITIES: He has no cyanosis, clubbing or edema. LABORATORY WORK: Looks good, although the CBC and PRP are pending for today. Sugars have been in the 128-226 range. I do not see any specimens from the bronchoscopy were sent yesterday. On review of the nurses' notes, it appears no specimens were sent. I think the specimen was only good for about 6 hours. Nonetheless, the patient seems to be quite stable. His post-procedure chest x-ray showed no pneumothorax with motion artifact noted as well. IMPRESSION: 1. Bibasilar pulmonary infiltrates. Culture negative. Sputum Gram stain revealed normal edison on 07/18/2016. 2. Tracheomalacia with stent placement. RECOMMENDATIONS: 1. Continue with his present medications. 2. Taper the methylprednisolone down to 20 mg q. [address] him on prednisone 20 mg daily with a taper over about 2 weeks. 3. Adjust the insulin accordingly. 4. Increase activity. 5. Continue on the Symbicort 160/4.5 two puffs b.i.d., and I think the Flonase could be discontinued now. Good antireflux regimen and DVT prophylaxis is recommended as well. Overall, he is stable. [facility]
[2016-07-21] MEDS: ALBUT/IPRATROP 3MG/0.5MG NEB 3 ML VIAL INH SCH ×4 (07:01→19:39)
[2016-07-21 07:11] LABS: HEMATOCRIT 36.2 % (42-52); MEAN CELL VOLUME 97.1 fL (80-100); MEAN CORPUSCULAR HEMOGLOBIN 31.4 pg (25-34); MEAN CORPUSCULAR HGB CONC 32.3 g/dl (32-36); MEAN PLATELET VOLUME 9.2 fL (7.4-10.4); PLATELET COUNT 156 K/uL (130-400); RED BLOOD COUNT 3.73 M/uL (4.7-6.1)
[2016-07-21 07:38] LABS: CREATININE 1.3 mg/dl (0.60-1.40)
[2016-07-21 08:04] LABS: CALCIUM 7.8 mg/dl (8.5-10.1); CREATININE 1.3 mg/dl (0.60-1.40); POTASSIUM 4.8 mmol/L (3.5-5.1)
--- NOTE | 2016-07-21 08:26 | DIAGNOSTIC IMAGING REPORT ---
SINGLE VIEW CHEST CLINICAL HISTORY: Status post tracheal stent placement. FINDINGS: An AP, portable, upright chest radiograph is compared to study dated 07/20/2016 and correlated with chest CT dated 07/17/2016. The examination is significantly degraded by portable technique, apical lordotic positioning, and patient rotation. The heart is mildly enlarged. A density projecting over the trachea likely represents the reported history of a tracheal stent. There are low lung volumes and bibasilar atelectasis. No airspace consolidation is seen typical for pneumonia. A small left pleural effusion is suspected. No pneumothorax is seen. The skeletal structures are osteopenic. The bony thorax is grossly intact. Enteric contrast is noted in the right colon. IMPRESSION: 1. A density projecting over the trachea likely corresponds to the reported history of a tracheal stent. 2. Low lung volumes with significant bibasilar atelectasis. 3. A small left pleural effusion is suspected. 4. Cardiac enlargement. Electronically signed by: Bucky uLgo M.D. 07/21/2016 8:24 AM Dictated Date/Time: 07/21/2016 8:22 AM
--- NOTE | 2016-07-21 08:38 | SURGERY PROGRESS NOTE ---
DATE: 07/21/2016 DATE: 07/21/2016. SUBJECTIVE: Mr. Carrington was seen today on 07/21/2016, one day after I did a bronchoscopy and did a insertion of a tracheal stent. The patient had a stable night. His lungs sound better, although he still has some rhonchi in both bases. I think his aeration is better. His pulse oximetry has been variable however this morning he has 100% saturation on 4 liters which is the highest that I have seen since he has been in the hospital. He feels subjectively he is a bit better. I did send off cultures yesterday, but we do not have anything back on that yet. I thought his x-ray showed good placement and it is difficult to say if his bases are any clearer. I would probably want to repeat a CT scan in a couple of days. In the meantime, I would aggressively move this patient. He needs physical therapy to get up walking and moving. My plan at this point is to probably keep this stent in for at least a couple of weeks and then see him back in the office. My suspicion he is going to improve from a respiratory standpoint. He certainly seems to be tolerating it well with no chest pain and able to swallow well.
[2016-07-21] MEDS: ASPIRIN 81 MG ECTAB PO SCH (09:09)
[2016-07-21] MEDS: LORATADINE 10 MG TAB PO SCH (09:09)
[2016-07-21] MEDS: FINASTERIDE 5 MG TAB PO SCH (09:10)
[2016-07-21] MEDS: PANTOprazole SOD 40 MG TAB PO SCH (09:10)
[2016-07-21] MEDS: GUAIFENESIN 200 MG TAB PO SCH ×3 (09:10→20:09)
[2016-07-21] MEDS: BUDESONIDE/FORMOTEROL FUMARATE 160/4.5 60 PUFFS/INHALER INH SCH ×2 (09:11→20:09)
[2016-07-21] MEDS: POLYETHYLENE (MIRALAX) 17 GM PACK PO SCH (09:11)
[2016-07-21] MEDS: INSULIN ASPART 100 UNITS/ML 3 ML PEN SC SCH ×4 (09:16→20:10)
[2016-07-21] MEDS: ENOXAPARIN 40 MG/0.4 ML SYR SQ SCH (09:17)
[2016-07-21] MEDS: ROPINIROLE HCL 0.25 MG TAB PO SCH (12:14)
[2016-07-21] MEDS: LORAZEPAM 0.5 MG TAB PO SCH (20:09)
[2016-07-21] MEDS: ROPINIROLE HCL 1 MG TAB PO SCH (20:10)
[2016-07-21] MEDS: TRAZODONE HCL 100 MG TAB PO SCH (20:10)
--- NOTE | 2016-07-21 20:17 | Hospitalist Progress Note ---
Hospitalist Progress Note Date of Service Jul 21, 2016. Subjective Pt evaluation today including: conversation w/ patient, conversation w/ family , physical exam, lab review, conversation w/ fashion consultant selling (CT Surgery), review of inpatient medication list Voiding: voiding difficulty (frequency, urinating 150 mL every hour all day--> Alves placed for 900 ml urine) Had bronch yesterday with lavage and endotracheal stent placed. Feels better today, coughing up more sputum Constitutional: No fever Respiratory: + cough, + sputum Cardiovascular: No chest pain Abdomen: No pain Male : + urinary frequency All Other Systems: Reviewed and Negative Objective Vital Signs Date Time Temp Pulse Resp B/P Pulse Ox O2 Delivery O2 Flow Rate FiO2 07/21/16 19:40 72 18 92 Nasal Cannula 4.0 07/21/16 16:00 Nasal Cannula 4.0 07/21/16 15:22 36.7 74 18 117/71 92 Nasal Cannula 4.0 07/21/16 15:19 73 18 96 Nasal Cannula 4.0 07/21/16 11:07 67 18 95 Nasal Cannula 4.0 07/21/16 08:00 Nasal Cannula 4.0 07/21/16 07:46 36.7 66 20 129/73 100 Nasal Cannula 4.0 07/21/16 07:01 69 18 90 BiPAP/CPAP 4.0 07/21/16 00:00 CPAP 07/20/16 23:26 36.7 83 18 100/52 93 BiPAP 4.0 Physical Exam General Appearance: WD/WN, no apparent distress Eyes: normal inspection, sclerae normal Neck: trachea midline Respiratory/Chest: no respiratory distress, no accessory muscle use, + decreased breath sounds (at bases but slightly improved from previous, otherwise scattered wheezes) Cardiovascular: regular rate, rhythm, no edema, no murmur Abdomen: normal bowel sounds, non tender, soft Extremities: non-tender, normal inspection, no pedal edema, no calf tenderness Neurologic/Psychiatric: alert, normal mood/affect Skin: normal color, warm/dry Laboratory Results Last 24 Hours Test 07/20/16 21:28 07/21/16 06:45 07/21/16 07:35 07/21/16 11:32 Bedside Glucose 128 mg/dl 151 mg/dl 128 mg/dl White Blood Count 13.60 K/uL Red Blood Count 3.73 M/uL Hemoglobin 11.7 g/dL Hematocrit 36.2 % Mean Corpuscular Volume 97.1 fL Mean Corpuscular Hemoglobin 31.4 pg Mean Corpuscular Hemoglobin Concent 32.3 g/dl RDW Standard Deviation 51.6 fL RDW Coefficient of Variation 14.5 % Platelet Count 156 K/uL Mean Platelet Volume 9.2 fL Sodium Level 137 mmol/L Potassium Level 4.8 mmol/L Chloride Level 102 mmol/L Carbon Dioxide Level 29 mmol/L Anion Gap 6.0 mmol/L Blood Urea Nitrogen 22 mg/dl Creatinine 1.30 mg/dl Est Creatinine Clear Calc Drug Dose 54.2 ml/min Estimated GFR () 58.5 Estimated GFR (Non- 50.5 BUN/Creatinine Ratio 17.0 Random Glucose 150 mg/dl Calcium Level 7.8 mg/dl Test 07/21/16 16:42 Bedside Glucose 115 mg/dl Assessment and Plan 81 yo male with Hx COPD with chronic respiratory failure, CVA, MARYLIN, RLS, BPH, Anemia, DMII, presents to the ER with acute hypoxemic respiratory failure after two weeks of productive cough illness with bibasilar PNA and atelectasis, with severe tracheomalacia. Acute on chronic hypoxemic respiratory failure, COPD exacerbation, confirmed bibasilar suspected Gram negative PNA in setting of HCAP with atelectasis, Severe tracheomalacia-sats in 70s at home, now improved. Previous admission with similar appearing imaging, likely never resolved. Video swallow w/o evidence of aspiration. With leukocytosis. Endotracheal stent placed 3/3 and copious thick sputum visualized and lavaged out of lower lobes bilaterally-bronchial washings did not get sent for studies/ culture - maintain O2 sats >92% - received IV Solu Medrol and now switch to po prednisone and slow taper over 2 weeks - Continue Q6HWA duonebs + PRN for wheezing, continue SYmbicort - Incentive spirometry, flutter valve, vibration vest and chest PT - continue Zosyn to cover for aspiration PNA as well as GNR PNA, and d/c'd Vanco as MRSA swab negative - repeat sputum culture today -Appreciate CT Surgery and Pulm consults -plan to remove tracheal stent in a few weeks -repeat CT CHest in 1-[address] Surgery Obstructive sleep apnea - Use home CPAP. Restless leg syndrome - Continue ropinirole 0.5mg @ noon, 1 mg HS Anxiety, insomnia - continue lorazepam 0.5mg PO BID + trazodone 100mg PO HS-ok to use if has CPAP in place GERD - PPI Hx CVA - continue ASA -not on statin possibly due to intolerance DMII with hyperglycemia induced by IV steroids: HgbA1C 6.7% 04/2016 -diet controlled at home -accuchecks, SSI BPH, Urinary retention-Alves placed for 900 mL urine -continue finasteride -add on Flomax -keep Alves in place and consult Urology in AM Anemia-mild, -continue Fe tabs Code - DNR VTE Prophylaxis - Lovenox 40 mg SQ daily - TEDs + SCDs Disposition DNR
[2016-07-21] MEDS: TAMSULOSIN HCL 0.4 MG CAP PO SCH (21:12)
[2016-07-22 07:06] VITALS: PULSE 70; O2SAT 97
[2016-07-22] MEDS: ALBUT/IPRATROP 3MG/0.5MG NEB 3 ML VIAL INH SCH ×4 (07:06→20:20)
[2016-07-22] MEDS: PIPERACILL/TAZOBAC IV 3.375 GM in DEXTROSE 5% 100ML 100 ML IV SCH ×2 (07:44→15:46)
[2016-07-22 07:59] VITALS: BP 134/73; PULSE 70; TEMP 36.7; O2SAT 97
[2016-07-22] MEDS: BUDESONIDE/FORMOTEROL FUMARATE 160/4.5 60 PUFFS/INHALER INH SCH ×2 (08:10→21:02)
[2016-07-22] MEDS: GUAIFENESIN 200 MG TAB PO SCH ×3 (08:10→21:06)
[2016-07-22] MEDS: ASPIRIN 81 MG ECTAB PO SCH (08:11)
[2016-07-22] MEDS: LORATADINE 10 MG TAB PO SCH (08:11)
[2016-07-22] MEDS: FERROUS SULFATE 325 MG TAB PO SCH (08:11)
[2016-07-22] MEDS: ENOXAPARIN 40 MG/0.4 ML SYR SQ SCH ×2 (08:11→08:24)
[2016-07-22] MEDS: FINASTERIDE 5 MG TAB PO SCH (08:11)
[2016-07-22] MEDS: PANTOprazole SOD 40 MG TAB PO SCH (08:12)
[2016-07-22] MEDS: POLYETHYLENE (MIRALAX) 17 GM PACK PO SCH (08:22)
[2016-07-22] MEDS: INSULIN ASPART 100 UNITS/ML 3 ML PEN SC SCH ×4 (08:22→21:11)
--- NOTE | 2016-07-22 08:28 | PROGRESS NOTE ---
DATE: 07/22/2016 SUBJECTIVE: The patient is out of bed to a chair, using the DuoNeb treatment, states he feels 100% better than he did at the time of admission. He continues to have cough producing some clear sputum now. Denies any chest pain. Has not had any abnormal effects from the stent placement. He is sleeping well with BiPAP. PHYSICAL EXAMINATION: VITAL SIGNS: Stable and he is afebrile. Blood pressure 115/75, oxygen saturation is 97% on 4 liters. His weight has not been done, was 106 kg on the 1st. I\T\O 1637 in and 2800 out voiding. According to nurses' notes he had complained of urinary retention. Bladder scan showed 999 mL. Gonzalez catheter was inserted. HEENT: Unremarkable except for a small posterior pharynx. No thrush is noted. No adenopathy is noted. Expansion of the thorax is fairly good with deep inspiration. HEART: Regular rate and rhythm. LUNGS: Reveal decreased breath sounds, otherwise are clear today. ABDOMEN: Soft, nontender. EXTREMITIES: He has no cyanosis, clubbing or edema. IMAGING: Chest x-ray showed probable tracheal stent on the film with low lung volumes, basilar atelectasis and small left pleural effusion. Cardiomegaly was noted as well. No pneumothorax is noted. LABORATORY DATA: White count was 13.6 yesterday with hematocrit of 36%. Sugars have been in the 115-164 range. CO2 is 29 on the electrolytes on the . IMPRESSION: 1. Bibasilar pulmonary infiltrates. Some of this may be atelectasis, although I thought he may have had an infection. Normal procalcitonin level on the 19 of July suggests this probably is not a lower respiratory tract infection. Nonetheless, he does feel considerably improved. 2. Tracheomalacia status post stent placement. 3. Chronic obstructive lung disease. 4. History of right hemispheric stroke with left-sided weakness. RECOMMENDATIONS: 1. Continue his present medications. Urology evaluation may be helpful for the urinary retention. 2. Taper the prednisone over about 10 days to 2 weeks. 3. Finish out the Zosyn that probably could be discontinued tomorrow. 4. Good glucose control. 5. Continue on the Symbicort, I think that has worked fairly well for him and he uses it with a mouth rinse. We discussed it at great length. Should continue on the DuoNeb 4 times a day q. 4 hours p.r.n. thereafter. A repeat CT of the chest in about 2 months will be recommended as well. Overall, he is quite stable.
--- NOTE | 2016-07-22 10:02 | SURGERY PROGRESS NOTE ---
DATE: 07/22/2016 DATE: 07/22/2016. Mr. Carrington was seen today. He states he had a "pretty rough night." He states he was coughing up large amount of sputum, which he did not do before the procedure. In addition, he states he had difficulty with urination; however, a Gonzalez catheter has now helped that. He was sleeping when I came in. He has 93% saturation on 2 liters. He has put out a good deal of urine. He states that he "feels good". His lungs sound pretty good to me. He has no wheezing or rhonchi. He has had some blood, which is not surprising given the stent and this should settle down in the next few days. ASSESSMENT AND PLAN: Tracheomalacia with bilateral lower lobe consolidation. I am going to check a CT scan tomorrow to assess the stent as well as his lower lobes. His x-ray has not really changed. THAIS
[2016-07-22 11:02] VITALS: PULSE 88; O2SAT 87
[2016-07-22] MEDS: ROPINIROLE HCL 0.25 MG TAB PO SCH (11:59)
[2016-07-22 14:37] VITALS: PULSE 78; O2SAT 94
[2016-07-22 15:36] VITALS: BP 124/65; PULSE 78; TEMP 36.6; O2SAT 93
--- NOTE | 2016-07-22 18:16 | Hospitalist Progress Note ---
Hospitalist Progress Note Date of Service Jul 22, 2016. Subjective Pt evaluation today including: conversation w/ patient, physical exam, lab review, review of inpatient medication list Voiding: capps catheter in place Feeling better, coughing up some sputum with blood streaks but expected due to tracheal stent as per CT Surgery. Capps draining well All Other Systems: Reviewed and Negative Objective Vital Signs Date Time Temp Pulse Resp B/P Pulse Ox O2 Delivery O2 Flow Rate FiO2 07/22/16 16:00 Nasal Cannula 4.0 07/22/16 15:36 36.6 78 18 124/65 93 Nasal Cannula 3.0 07/22/16 14:37 78 18 94 Nasal Cannula 3.0 07/22/16 11:02 88 18 87 Nasal Cannula 2.0 07/22/16 08:00 Nasal Cannula 4.0 07/22/16 07:59 36.7 70 18 134/73 97 Nasal Cannula 4.0 07/22/16 07:06 70 18 97 Nasal Cannula 4.0 07/22/16 00:00 CPAP 07/21/16 23:58 36.7 73 18 115/75 Room Air 07/21/16 20:00 Room Air 07/21/16 19:40 72 18 92 Nasal Cannula 4.0 Physical Exam General Appearance: WD/WN, no apparent distress Eyes: normal inspection, sclerae normal Neck: trachea midline Respiratory/Chest: no respiratory distress, no accessory muscle use, + decreased breath sounds (at bases bilat) Cardiovascular: regular rate, rhythm, no edema, no murmur Abdomen: normal bowel sounds, non tender, soft Extremities: normal inspection, no calf tenderness Neurologic/Psychiatric: alert, normal mood/affect Skin: normal color, warm/dry, no rash Laboratory Results Last 24 Hours Test 07/21/16 20:25 07/22/16 07:45 07/22/16 11:51 07/22/16 16:25 Bedside Glucose 164 mg/dl 113 mg/dl 177 mg/dl 182 mg/dl Assessment and Plan 81 yo male with Hx COPD with chronic respiratory failure, CVA, MARYLIN, RLS, BPH, Anemia, DMII, presents to the ER with acute hypoxemic respiratory failure after two weeks of productive cough illness with bibasilar PNA and atelectasis, with severe tracheomalacia. Acute on chronic hypoxemic respiratory failure, COPD exacerbation, bibasilar suspected Gram negative PNA in setting of HCAP with atelectasis, Severe tracheomalacia-sats in 70s at home, now improved. Previous admission with similar appearing imaging, likely never resolved. Video swallow w/o evidence of aspiration. With leukocytosis. Endotracheal stent placed 3/3 and copious thick sputum visualized and lavaged out of lower lobes bilaterally-bronchial washings did not get sent for studies/ culture - maintain O2 sats >92% - received IV Solu Medrol and then switched to po prednisone and slow taper over 2 weeks - Continue Q6HWA duonebs + PRN for wheezing, continue SYmbicort - Incentive spirometry, flutter valve, vibration vest and chest PT - continue Zosyn to cover for aspiration PNA as well as GNR PNA, and d/c'd Vanco as MRSA swab negative - repeat sputum culture today -Appreciate CT Surgery and Pulm consults -plan to remove tracheal stent in a few weeks -repeat CT CHest in tomorrow as per CT Surgery Obstructive sleep apnea - Use home CPAP. Restless leg syndrome - Continue ropinirole 0.5mg @ noon, 1 mg HS Anxiety, insomnia - continue lorazepam 0.5mg PO BID + trazodone 100mg PO HS-ok to use if has CPAP in place GERD - PPI Hx CVA - continue ASA -not on statin possibly due to intolerance DMII with hyperglycemia induced by IV steroids: HgbA1C 6.7% 04/2016 -diet controlled at home -accuchecks, SSI BPH, Urinary retention-Capps placed for 900 mL urine on 07/21 -continue finasteride -added on Flomax -keep Capps in place and consult Urology Anemia-mild, -continue Fe tabs Code - DNR VTE Prophylaxis - Lovenox 40 mg SQ daily-held today for hemoptysis, restart when resolved - TEDs + SCDs Disposition DNR
[2016-07-22 19:10] VITALS: PULSE 80; O2SAT 95
[2016-07-22] MEDS: LORAZEPAM 0.5 MG TAB PO SCH (21:04)
[2016-07-22] MEDS: ROPINIROLE HCL 1 MG TAB PO SCH (21:05)
[2016-07-22] MEDS: TRAZODONE HCL 100 MG TAB PO SCH (21:06)
[2016-07-22] MEDS: TAMSULOSIN HCL 0.4 MG CAP PO SCH (21:07)
[2016-07-23] VITALS (8 sets, daily range): BP systolic 112–152; BP diastolic 66–82; PULSE 62–78; TEMP 36.5–36.8; O2SAT 92–97
[2016-07-23] MEDS: PIPERACILL/TAZOBAC IV 3.375 GM in DEXTROSE 5% 100ML 100 ML IV SCH ×4 (00:21→23:29)
[2016-07-23] MEDS ORDERED: ROPINIROLE HCL 1 MG TAB PO STA (01:23)
[2016-07-23] MEDS: ALBUT/IPRATROP 3MG/0.5MG NEB 3 ML VIAL INH SCH ×4 (06:59→19:03)
[2016-07-23] MEDS: POLYETHYLENE (MIRALAX) 17 GM PACK PO SCH (08:00)
[2016-07-23] MEDS: BUDESONIDE/FORMOTEROL FUMARATE 160/4.5 60 PUFFS/INHALER INH SCH ×2 (08:00→19:51)
[2016-07-23] MEDS: GUAIFENESIN 200 MG TAB PO SCH ×3 (08:01→19:52)
[2016-07-23] MEDS: PANTOprazole SOD 40 MG TAB PO SCH (08:02)
[2016-07-23] MEDS: ASPIRIN 81 MG ECTAB PO SCH (08:02)
[2016-07-23] MEDS: FINASTERIDE 5 MG TAB PO SCH (08:02)
[2016-07-23] MEDS: LORATADINE 10 MG TAB PO SCH (08:02)
[2016-07-23] MEDS: ENOXAPARIN 40 MG/0.4 ML SYR SQ SCH (08:08)
[2016-07-23] MEDS: INSULIN ASPART 100 UNITS/ML 3 ML PEN SC SCH ×4 (08:15→20:00)
--- NOTE | 2016-07-23 08:39 | Urology Consultation ---
History General Date of Service: Jul 23, 2016. Chief Complaint: urinary retention Primary Care Physician: Ernie Sanchez D.O. History of Present Illness 81 yo male admitted for respiratory issues. consulted after the pt developed UR over the weekend. PVR for 999ml 2 days ago, and capps catheter placed. Urine is clear, yellow this morning. Pt noted to previously be on finasteride. Flomax started with capps placement as well. The pt seems to be a poor historian. ? has seen a urologist in the past for BPH , but cannot say who or when. He does report some baseline weak stream. Laboratory Last 24 Hours Test 07/22/16 11:51 07/22/16 16:25 07/22/16 20:29 Bedside Glucose 177 mg/dl 182 mg/dl 175 mg/dl Problem List Medical Problems: (1) COPD (chronic obstructive pulmonary disease) Status: Chronic (2) Hypotension Status: Acute (3) Hypoxia Status: Acute Past History COPD, CVA/TIA/stroke, diabetes, other (obstructive sleep apnea, asbestos exposure, restless leg syndrome) Past Surgical History: other (unknown, pt is a poor historian) Family History OR Social History Hx Tobacco Use In Past Year?: No Smoking: quit greater than 1 year (quit in 2009) Alcohol: no current use, other (previously heavy drinker) Marital status: Housing status: lives with family (son + daughter in law) Occupation status: retired ([employer] 36.5 years) Immunizations History of Influenza Vaccine: Yes History of Tetanus Vaccine?: Yes History of Pneumococcal: Yes Allergies Coded Allergies: Ciprofloxacin (Unverified Allergy, Intermediate, unknown, 07/17/16) Nitrofurantoin (Unverified Allergy, Intermediate, unknown, 07/17/16) Medications Home Medications: Home Meds and Scripts Medications Dose Route/Sig Max Daily Dose Days Date Category Dose Instructions Bactrim Ds 800MG/160MG (Trimethoprim/Sulfamethoxazole) Tab 1 Tab PO BID 07/17/16 Reported Oxygen Gas 3 Liters NA CONTINOUS 05/12/16 Reported VIA BI-PAP Albuterol Sulfate (Albuterol Sulf) 2.5 Mg/3 Ml Nebu 3 Ml INH QID PRN 05/12/16 Reported Polyethylene Glycol 3350 1 Pow Pow 17 Gm PO DAILY 05/12/16 Reported Trazodone (Trazodone HCl) 100 Mg Tab 100 Mg PO HS 05/12/16 Reported Symbicort 160/4.5 Inhaler (Budesonide/Formoterol Fumarate) Aero 2 Puffs INH BID 05/12/16 Reported Melatonin Maximum Strengt (Melatonin) 5 Mg Tab 5 Mg PO HS 05/12/16 Reported Iron (Ferrous Sulfate) 325 Mg Tab 325 Mg PO Q2D 05/12/16 Reported Ativan (Lorazepam) 0.5 Mg Tab 1 Mg PO HS 05/12/16 Reported Flonase Allergy Relief (Fluticasone Propionate (Nasal)) 50 Mcg/Act Spr 2 [place]Y DAILY 05/12/16 Reported Requip (Ropinirole HCl) 0.5 Mg Tab 1 Mg PO HS 05/12/16 Reported Requip (Ropinirole HCl) 0.5 Mg Tab 0.5 Mg PO DAILY@ NOON 05/12/16 Reported Prilosec (Omeprazole) 20 Mg Capcr 20 Mg PO DAILY 05/12/16 Reported Claritin (Loratadine) 10 Mg Tab 10 Mg PO DAILY 05/12/16 Reported Proscar (Finasteride) 5 Mg Tab 5 Mg PO DAILY 05/12/16 Reported Aspirin Ec (Aspirin) 81 Mg Tab 81 Mg PO DAILY 05/12/16 Reported Inpatient Medications: Current Inpatient Medications Medications (Trade) Dose Ordered Sig/Quiana Route Start Time Stop Time Status Last Admin Dose Admin Acetaminophen (Tylenol Tab) 650 mg Q4H PRN PO 07/18/16 00:30 08/17/16 00:29 Aspirin (Ecotrin Tab) 81 mg DAILY PO 07/18/16 09:00 08/17/16 08:59 07/23/16 08:02 81 MG Budesonide/ Formoterol Fumarate (Symbicort 160/ 4.5 Inh) 2 puffs BID INH 07/18/16 09:00 08/17/16 08:59 07/23/16 08:00 2 PUFFS Finasteride (Proscar Tab) 5 mg DAILY PO 07/18/16 09:00 08/17/16 08:59 07/23/16 08:02 5 MG Loratadine (Claritin Tab) 10 mg DAILY PO 07/18/16 09:00 08/17/16 08:59 07/23/16 08:02 10 MG Lorazepam (Ativan Tab) 1 mg HS PO 07/18/16 21:00 08/17/16 20:59 07/22/16 21:04 1 MG Ropinirole HCl (Requip Tab) 0.5 mg DAILY@1200 PO 07/18/16 12:00 08/17/16 11:59 07/22/16 11:59 0.5 MG Ropinirole HCl (Requip Tab) 1 mg HS PO 07/18/16 21:00 08/17/16 20:59 07/22/16 21:05 1 MG Trazodone HCl (Desyrel Tab) 100 mg HS PO 07/18/16 21:00 08/17/16 20:59 07/22/16 21:06 100 MG Ferrous Sulfate (Feosol Tab) 325 mg Q48H PO 07/18/16 09:00 08/17/16 08:59 07/22/16 08:11 325 MG Pantoprazole Sodium (Protonix Tab) 40 mg QAM PO 07/18/16 09:00 08/17/16 08:59 07/23/16 08:02 40 MG Polyethylene (Miralax Powder Packet) 17 gm DAILY PO 07/18/16 09:00 08/17/16 08:59 07/23/16 08:00 17 GM Albuterol/ Ipratropium (Duoneb) 3 ml QIDR INH 07/18/16 08:00 08/17/16 07:59 07/23/16 06:59 3 ML Guaifenesin (Organidin Nr Tab) 400 mg Q6RWA PO 07/18/16 09:00 08/17/16 08:59 07/23/16 08:01 400 MG Enoxaparin Sodium 40 mg 40 mg QAM SQ 07/18/16 09:00 08/17/16 08:59 07/23/16 08:08 40 MG Piperacillin Sod/ Tazobactam Sod/ Dextrose (Zosyn Iv/D5 100ml) 115 ml @ 28.75 mls/ hr Q8H IV 07/19/16 00:00 07/25/16 21:00 07/23/16 07:54 28.75 MLS/HR Insulin Aspart (novoLOG ASPART) SLIDING SCALE If C... ACHS SC 07/18/16 21:00 08/17/16 20:59 3/6/17 08:15 6 UNITS Glucose (Glucose 40% Gel) 15-30 GRAMS 15 GRAMS... UD PRN PO 07/18/16 17:45 08/17/16 17:44 Glucose (Glucose Chew Tab) 4-8 Tablets 4 Tabl... UD PRN PO 07/18/16 17:45 08/17/16 17:44 Dextrose (Dextrose 50% 50ML Syringe) 25-50ML OF 50% DW IV FOR... UD PRN IV 07/18/16 17:45 08/17/16 17:44 Glucagon (Glucagon Inj) 1 mg UD PRN SQ 07/18/16 17:45 08/17/16 17:44 Piperacillin Sod/ Tazobactam Sod (Consult) 1 ea UD PRN N/A 07/18/16 20:00 08/17/16 19:59 Albuterol Sulfate (Ventolin 0.083% 2.5MG/3ML Neb) 7.5 mg QID PRN INH 07/20/16 14:30 08/19/16 14:29 Tramadol HCl (Ultram Tab) 50 mg Q4H PRN PO 07/20/16 14:30 08/19/16 14:29 Prednisone (PredniSONE TAB) 20 mg DAILY PO 07/21/16 11:00 08/20/16 10:59 07/23/16 08:02 20 MG Tamsulosin HCl (Flomax Cap) 0.4 mg HS PO 07/21/16 21:00 08/20/16 20:59 07/22/16 21:07 0.4 MG Review of Systems Review of Systems Constitutional: + problem reported (fatigue), No chills, No fever Eyes: No double vision Neurological: No dizzy Endocrine: No excessive thirst Gastrointestinal: No abdominal pain, No nausea, No vomiting Cardiovascular: No chest pain Respiratory: No shortness of breath Skin: No rash Musculoskeletal: + arthritis Male : + weak stream, No blood in urine Physical Exam Vital Signs: Vital Signs Past 12 Hours Date Time Temp Pulse Resp B/P Pulse Ox O2 Delivery O2 Flow Rate FiO2 07/23/16 08:00 36.7 77 18 112/66 92 Nasal Cannula 3.5 07/23/16 06:59 71 18 93 BiPAP/CPAP 3.0 07/23/16 00:34 36.5 76 20 152/82 94 Room Air 07/23/16 00:00 Nasal Cannula 3.0 Physical Exam: General Appearance: no apparent distress Eyes: bilateral eyes normal inspection ENT: hearing grossly normal Neck: no JVD Respiratory/Chest: no respiratory distress, no accessory muscle use Cardiovascular: no JVD Extremities: normal inspection Neurologic/Psychiatric: alert, normal mood/affect, + pertinent finding (pt falling drifting in and out of sleep during our conversation today) Skin: normal color Assessment & Plan Assessment & Plan A/P: Urinary retention AFVSS. Continue Flomax and finasteride. Recommend leaving capps catheter in place for 7-10 days. Can attempt an outpatient trial of void at that time if he has been discharged. Thanks for the consult. Will continue to follow along with primary service at this time.
--- NOTE | 2016-07-23 08:54 | DIAGNOSTIC IMAGING REPORT ---
CT OF THE CHEST WITHOUT IV CONTRAST CLINICAL HISTORY: tracheal stent / bilateral lower lobe consolidation COMPARISON STUDY: 07/17/2016 CT DOSE: 888.48 mGy.cm TECHNIQUE: CT of the thorax was performed from the thoracic inlet to the lung bases. Images are reviewed in the axial, sagittal, and coronal planes. IV contrast was not administered for this examination. FINDINGS: Thyroid: Imaged portions of the thyroid gland are normal in appearance. Thoracic aorta: The thoracic aorta is normal in course and caliber, noting standard 3 vessel arch anatomy. Heart: The heart is normal in size and configuration, without pericardial effusion. Lungs and pleural spaces: There has been interval placement of a tracheal stent. The stent terminates 21 mm above the devika. There is persistent bilateral lower lobe atelectasis/consolidation with mild improvement on the left. There is radiographic evidence of emphysema. Mediastinum: There is no mediastinal lymphadenopathy. Rubi: Clear. Axilla: Clear. Upper abdomen: Multiple hepatic hypodensities are again evident. There is atrophy the pancreas. Skeletal structures: There are no lytic or blastic osseous lesions. IMPRESSION: 1. Interval placement of a tracheal stent 2. Persistent bibasal atelectasis/consolidation with slight improvement on the left. Electronically signed by: Tyrone Coombs M.D. 07/23/2016 8:53 AM Dictated Date/Time: 07/23/2016 8:40 AM
--- NOTE | 2016-07-23 09:18 | Anesthesiology Progress Note ---
Anesthesia Post Op Note Date & Time Jul 23, 2016 at 09:19 Vital Signs Pain Intensity: 0.0 Vital Signs Past 12 Hours Date Time Temp Pulse Resp B/P Pulse Ox O2 Delivery O2 Flow Rate FiO2 07/23/16 08:00 36.7 77 18 112/66 92 Nasal Cannula 3.5 07/23/16 06:59 71 18 93 BiPAP/CPAP 3.0 07/23/16 00:34 36.5 76 20 152/82 94 Room Air 07/23/16 00:00 Nasal Cannula 3.0 Notes Mental Status: alert / awake / arousable, participated in evaluation Pt Amnestic to Procedure: Yes Nausea / Vomiting: adequately controlled Pain: adequately controlled Airway Patency, RR, SpO2: stable & adequate BP & HR: stable & adequate Hydration State: stable & adequate Anesthetic Complications: no major complications apparent
[2016-07-23] MEDS: ROPINIROLE HCL 0.25 MG TAB PO SCH (11:55)
--- NOTE | 2016-07-23 12:44 | Hospitalist Progress Note ---
Hospitalist Progress Note Date of Service Jul 23, 2016. Subjective Pt evaluation today including: conversation w/ patient, physical exam, chart review, lab review, review of studies, review of inpatient medication list Voiding: capps catheter in place Patient states he is feeling well. He is anxious for discharge. Eating and drinking OK. +SOB, but improving. +productive cough. Patient denies any fever, chills, sweats, lightheadedness, dizziness, vision changes, CP, palpitations, edema, wheezing, abdominal pain, nausea, vomiting, diarrhea, urinary symptoms, melena, numbness/tingling, weakness, muscle/joint pain, anxiety/depression, active bleeding, or new skin discoloration/changes. Medications Current Inpatient Medications Medications (Trade) Dose Ordered Sig/Quiana Route Start Time Stop Time Status Last Admin Dose Admin Acetaminophen (Tylenol Tab) 650 mg Q4H PRN PO 07/18/16 00:30 08/17/16 00:29 Aspirin (Ecotrin Tab) 81 mg DAILY PO 07/18/16 09:00 08/17/16 08:59 07/23/16 08:02 81 MG Budesonide/ Formoterol Fumarate (Symbicort 160/ 4.5 Inh) 2 puffs BID INH 07/18/16 09:00 08/17/16 08:59 07/23/16 08:00 2 PUFFS Finasteride (Proscar Tab) 5 mg DAILY PO 07/18/16 09:00 08/17/16 08:59 07/23/16 08:02 5 MG Loratadine (Claritin Tab) 10 mg DAILY PO 07/18/16 09:00 08/17/16 08:59 07/23/16 08:02 10 MG Lorazepam (Ativan Tab) 1 mg HS PO 07/18/16 21:00 08/17/16 20:59 07/22/16 21:04 1 MG Ropinirole HCl (Requip Tab) 0.5 mg DAILY@1200 PO 07/18/16 12:00 08/17/16 11:59 07/23/16 11:55 0.5 MG Ropinirole HCl (Requip Tab) 1 mg HS PO 07/18/16 21:00 08/17/16 20:59 07/22/16 21:05 1 MG Trazodone HCl (Desyrel Tab) 100 mg HS PO 07/18/16 21:00 08/17/16 20:59 07/22/16 21:06 100 MG Ferrous Sulfate (Feosol Tab) 325 mg Q48H PO 07/18/16 09:00 08/17/16 08:59 07/22/16 08:11 325 MG Pantoprazole Sodium (Protonix Tab) 40 mg QAM PO 07/18/16 09:00 08/17/16 08:59 07/23/16 08:02 40 MG Polyethylene (Miralax Powder Packet) 17 gm DAILY PO 07/18/16 09:00 08/17/16 08:59 07/23/16 08:00 17 GM Albuterol/ Ipratropium (Duoneb) 3 ml QIDR INH 07/18/16 08:00 08/17/16 07:59 07/23/16 11:20 3 ML Guaifenesin (Organidin Nr Tab) 400 mg Q6RWA PO 07/18/16 09:00 08/17/16 08:59 07/23/16 08:01 400 MG Enoxaparin Sodium 40 mg 40 mg QAM SQ 07/18/16 09:00 08/17/16 08:59 07/23/16 08:08 40 MG Piperacillin Sod/ Tazobactam Sod/ Dextrose (Zosyn Iv/D5 100ml) 115 ml @ 28.75 mls/ hr Q8H IV 07/19/16 00:00 07/25/16 21:00 07/23/16 07:54 28.75 MLS/HR Insulin Aspart (novoLOG ASPART) SLIDING SCALE If C... ACHS SC 07/18/16 21:00 08/17/16 20:59 07/23/16 12:01 6 UNITS Glucose (Glucose 40% Gel) 15-30 GRAMS 15 GRAMS... UD PRN PO 07/18/16 17:45 08/17/16 17:44 Glucose (Glucose Chew Tab) 4-8 Tablets 4 Tabl... UD PRN PO 07/18/16 17:45 08/17/16 17:44 Dextrose (Dextrose 50% 50ML Syringe) 25-50ML OF 50% DW IV FOR... UD PRN IV 07/18/16 17:45 08/17/16 17:44 Glucagon (Glucagon Inj) 1 mg UD PRN SQ 07/18/16 17:45 08/17/16 17:44 Piperacillin Sod/ Tazobactam Sod (Consult) 1 ea UD PRN N/A 07/18/16 20:00 08/17/16 19:59 Albuterol Sulfate (Ventolin 0.083% 2.5MG/3ML Neb) 7.5 mg QID PRN INH 07/20/16 14:30 08/19/16 14:29 Tramadol HCl (Ultram Tab) 50 mg Q4H PRN PO 07/20/16 14:30 08/19/16 14:29 Prednisone (PredniSONE TAB) 20 mg DAILY PO 07/21/16 11:00 08/20/16 10:59 07/23/16 08:02 20 MG Tamsulosin HCl (Flomax Cap) 0.4 mg HS PO 07/21/16 21:00 08/20/16 20:59 07/22/16 21:07 0.4 MG Objective Vital Signs Date Time Temp Pulse Resp B/P Pulse Ox O2 Delivery O2 Flow Rate FiO2 07/23/16 11:21 62 18 96 Nasal Cannula 3.0 07/23/16 10:20 92 Nasal Cannula 3.5 07/23/16 08:00 Nasal Cannula 4.0 07/23/16 08:00 36.7 77 18 112/66 92 Nasal Cannula 3.5 07/23/16 06:59 71 18 93 BiPAP/CPAP 3.0 07/23/16 00:34 36.5 76 20 152/82 94 Room Air 07/23/16 00:00 Nasal Cannula 3.0 07/22/16 19:49 Nasal Cannula 3.0 07/22/16 19:10 80 18 95 Nasal Cannula 3.0 07/22/16 16:00 Nasal Cannula 4.0 07/22/16 15:36 36.6 78 18 124/65 93 Nasal Cannula 3.0 07/22/16 14:37 78 18 94 Nasal Cannula 3.0 Physical Exam General Appearance: no apparent distress Eyes: normal inspection, PERRL ENT: hearing grossly normal Neck: supple Respiratory/Chest: lungs clear, no respiratory distress, no accessory muscle use, + decreased breath sounds (bilateral lung bases ) Cardiovascular: regular rate, rhythm Abdomen: normal bowel sounds, non tender, soft Extremities: no pedal edema, no calf tenderness, + pertinent finding (+1 pitting edema of left lower extremity ) Neurologic/Psychiatric: alert, normal mood/affect, oriented x 3 Skin: normal color, warm/dry, no rash Laboratory Results Last 24 Hours Test 07/22/16 16:25 07/22/16 20:29 07/23/16 07:38 07/23/16 11:01 Bedside Glucose 182 mg/dl 175 mg/dl 117 mg/dl 161 mg/dl Assessment and Plan 81 yo male with Hx COPD with chronic respiratory failure, CVA, MRAYLIN, RLS, BPH, Anemia, DMII, presents to the ER with acute hypoxemic respiratory failure after two weeks of productive cough illness with bibasilar PNA and atelectasis, with severe tracheomalacia. Acute on chronic hypoxemic respiratory failure, COPD exacerbation, bibasilar suspected Gram negative PNA in setting of HCAP with atelectasis: - Severe tracheomalacia -- Video swallow w/o evidence of aspiration -- Endotracheal stent placed 07/20 and copious thick sputum visualized and lavaged out of lower lobes bilaterally-bronchial washings did not get sent for studies/culture -- CT surgery following; -- Repeat chest CT on 07/23- 1. Interval placement of a tracheal stent. 2. Persistent bibasal atelectasis/consolidation with slight improvement on the left. -- Leave stent in place x a couple of weeks and f/u outpatient - Maintain O2 sats >92% - Received IV Solu Medrol and then switched to PO prednisone and slow taper over 2 weeks (murali started on 07/21) - Continue Q6HWA duonebs + PRN for wheezing, continue Symbicort - Incentive spirometry, flutter valve, vibration vest and chest PT - Continue Zosyn to cover for aspiration PNA as well as GNR PNA, and d/c'd Vanco --> as MRSA swab negative -- Will d/c Zosyn on 07/24 per pulmonary recommendation - Sputum culture negative x2 - Pulmonary following, appreciate recommendations Obstructive sleep apnea: Use home CPAP Restless leg syndrome: Continue Ropinirole 0.5mg @ noon, 1 mg HS Anxiety, insomnia: Continue lorazepam 0.5mg PO BID + trazodone 100mg PO HS- ok to use if has CPAP in place GERD: Continue PPI Hx CVA: - Continue ASA - No statin, ?possibly due to intolerance DMII, diet controlled, with hyperglycemia induced by IV steroids: - HgbA1C 6.7% 04/2016 - BSG ACHS with sliding insulin scale BPH, Urinary retention- Capps placed on 07/21: - Finasteride and Flomax - Consulted urology, appreciate recommendations--> leaving Capps in place for 7- 10 days, outpatient trial of void Anemia, stable: Continue Fe tabs Code Status: LEVEL V, DNR VTE Prophylaxis: Lovenox 40 mg SQ daily, TEDs + SCDs Dispo: Discharge to home once medically stable--> PT recommending home health PT. Hopeful discharge in the next 1-2 days
--- NOTE | 2016-07-23 16:39 | SURGERY PROGRESS NOTE ---
DATE: 07/23/2016 Mr. Carrington was seen today on 07/23/2016. Mr. Carrington had a tracheal stent placed 3 days ago. He is bringing up much more sputum now. He really has not walked much. Otherwise, he appears stable. His CT scan was done today which shows he has a bit better aeration in both lower lung warren. At this point, I would continue our antibiotic therapy and continue physical therapy. The stent is not causing him an issue now. I would leave it in for at least another 2 weeks or so. THAIS
[2016-07-23] MEDS: LORAZEPAM 0.5 MG TAB PO SCH (19:51)
[2016-07-23] MEDS: TAMSULOSIN HCL 0.4 MG CAP PO SCH (19:52)
[2016-07-23] MEDS: TRAZODONE HCL 100 MG TAB PO SCH (19:54)
[2016-07-23] MEDS: ROPINIROLE HCL 1 MG TAB PO SCH (19:54)
[2016-07-24 00:05] VITALS: BP 136/83; PULSE 72; TEMP 36.8; O2SAT 91
[2016-07-24 07:01] VITALS: PULSE 64; O2SAT 97
[2016-07-24] MEDS: ALBUT/IPRATROP 3MG/0.5MG NEB 3 ML VIAL INH SCH ×2 (07:01→11:05)
[2016-07-24 07:30] VITALS: BP 122/71; PULSE 67; TEMP 36.6; O2SAT 99
[2016-07-24] MEDS: BUDESONIDE/FORMOTEROL FUMARATE 160/4.5 60 PUFFS/INHALER INH SCH (07:36)
[2016-07-24] MEDS: FINASTERIDE 5 MG TAB PO SCH (07:37)
[2016-07-24] MEDS: ASPIRIN 81 MG ECTAB PO SCH (07:37)
[2016-07-24] MEDS: FERROUS SULFATE 325 MG TAB PO SCH (07:37)
[2016-07-24] MEDS: LORATADINE 10 MG TAB PO SCH (07:37)
[2016-07-24] MEDS: PIPERACILL/TAZOBAC IV 3.375 GM in DEXTROSE 5% 100ML 100 ML IV SCH (07:38)
[2016-07-24] MEDS: PANTOprazole SOD 40 MG TAB PO SCH (07:38)
[2016-07-24] MEDS: GUAIFENESIN 200 MG TAB PO SCH (07:39)
[2016-07-24] MEDS: ENOXAPARIN 40 MG/0.4 ML SYR SQ SCH (07:41)
[2016-07-24] MEDS: POLYETHYLENE (MIRALAX) 17 GM PACK PO SCH (07:41)
[2016-07-24 08:13] LABS: HEMATOCRIT 37.4 % (42-52); MEAN CELL VOLUME 98.4 fL (80-100); MEAN CORPUSCULAR HEMOGLOBIN 31.1 pg (25-34); MEAN CORPUSCULAR HGB CONC 31.6 g/dl (32-36); MEAN PLATELET VOLUME 9.1 fL (7.4-10.4); PLATELET COUNT 133 K/uL (130-400); WHITE BLOOD COUNT 9.26 K/uL (4.8-10.8)
[2016-07-24] MEDS: INSULIN ASPART 100 UNITS/ML 3 ML PEN SC SCH ×2 (08:26→12:08)
--- NOTE | 2016-07-24 08:44 | Progress Note ---
Subjective Date of Service: Jul 24, 2016. Subjective Pt evaluation today including: conversation w/ patient, chart review, lab review Voiding: capps catheter in place (patent, draining clear, yellow urine) 81 yo male with urinary retention. He does not remember our conversation from yesterday. Denies pain today. Problem List Medical Problems: (1) COPD (chronic obstructive pulmonary disease) Status: Chronic (2) Hypotension Status: Acute (3) Hypoxia Status: Acute Review of Systems Constitutional: No chills, No fever Respiratory: No shortness of breath Cardiac: No chest pain Abdomen: No nausea, No pain, No vomiting Male : No hematuria Heme: No abnormal bleeding/bruising Objective Vital Signs Date Time Temp Pulse Resp B/P Pulse Ox O2 Delivery O2 Flow Rate FiO2 07/24/16 07:30 36.6 67 18 122/71 99 3.0 07/24/16 07:01 64 18 97 Nasal Cannula 3.0 07/24/16 00:05 36.8 72 18 136/83 91 3.0 07/24/16 00:00 Room Air 07/23/16 20:00 Room Air 07/23/16 19:07 67 18 97 Nasal Cannula 3.0 07/23/16 16:00 Nasal Cannula 4.0 07/23/16 15:37 70 18 96 Nasal Cannula 3.0 07/23/16 14:10 36.8 78 22 116/67 94 Nasal Cannula 3.0 07/23/16 11:21 62 18 96 Nasal Cannula 3.0 07/23/16 10:20 92 Nasal Cannula 3.5 Physical Exam General Appearance: no apparent distress Eyes: normal inspection ENT: hearing grossly normal Neck: no JVD Respiratory/Chest: no respiratory distress, no accessory muscle use Cardiovascular: no JVD Extremities: normal inspection Neurologic/Psychiatric: alert, normal mood/affect, oriented x 3 Skin: normal color Laboratory Results Last 24 Hours Test 07/23/16 11:01 07/23/16 16:15 07/23/16 19:58 07/24/16 07:30 Bedside Glucose 161 mg/dl 201 mg/dl 145 mg/dl White Blood Count 9.26 K/uL Red Blood Count 3.80 M/uL Hemoglobin 11.8 g/dL Hematocrit 37.4 % Mean Corpuscular Volume 98.4 fL Mean Corpuscular Hemoglobin 31.1 pg Mean Corpuscular Hemoglobin Concent 31.6 g/dl RDW Standard Deviation 51.7 fL RDW Coefficient of Variation 14.4 % Platelet Count 133 K/uL Mean Platelet Volume 9.1 fL Test 07/24/16 07:38 Bedside Glucose 125 mg/dl Assessment and Plan A/P: Urinary retention AFVSS. Continue Flomax and finasteride. Will plan to leave capps catheter in place for 7-10 days. Plan for outpatient trial of void at that time. No further management for now. Recall PRN issues. Will arrange for outpatient f/u. Thanks for allowing us to participate in this pt's care.
[2016-07-24 08:45] VITALS: O2SAT 96
[2016-07-24 08:45] LABS: BUN/CREATININE RATIO 14.1 (10-20); CALCIUM 7.9 mg/dl (8.5-10.1); CREATININE 1.2 mg/dl (0.60-1.40); MAGNESIUM 2.5 mg/dl (1.8-2.4); POTASSIUM 3.8 mmol/L (3.5-5.1)
--- NOTE | 2016-07-24 08:57 | SURGERY PROGRESS NOTE ---
DATE: 07/24/2016 Mr. Carrington was seen today on 07/24/2016. He looks better. He would like to get up and move. His white count is down at 9260. Hemoglobin has been stable. His blood sugars have been stable. He is currently 99% saturation which is on 3 liters. His lungs sound pretty good. He had a quiet night. I think the major thing with him would be getting him up moving with physical therapy. I would like to see him back in the office in 2 weeks with a chest x-ray and we will arrange for removal of the stent. I would also be aggressive in weaning off his oxygen.
[2016-07-24] MEDS ORDERED: PRED10TA PO (09:50)
[2016-07-24] MEDS ORDERED: FLM4 PO (09:50)
--- NOTE | 2016-07-24 10:07 | Discharge Summary ---
Discharge Summary Date of Service Jul 24, 2016. Discharge Summary Admission Date: Jul 18, 2016 at 00:26 Discharge Date: Jul 24, 2016 Discharge Disposition: Home with services Principal Diagnosis: Pneumonia; COPD exacerbation Problems/Secondary Diagnoses: 1. Acute on chronic hypoxemic respiratory failure 2. COPD exacerbation 3. Obstructive sleep apnea 4. Restless leg syndrome 5. Anxiety 6. Insomnia 7. GERD 8. Hx CVA 9. DMII, diet controlled 10. BPH 11. Urinary retention 12. Anemia Immunizations: Have You Had Influenza Vaccine: Yes History of Tetanus Vaccine?: Yes History of Pneumococcal: Yes Procedures: CHEST ONE VIEW PORTABLE CLINICAL HISTORY: Torus of breath COMPARISON STUDY: 05/12/2016 FINDINGS: The heart is enlarged. There is radiographic evidence of congestive failure/fluid overload. There are low lung volumes. There is a small left pleural effusion. There is a persistent left basilar airspace opacities..[ IMPRESSION: 1. Cardiomegaly and radiographic evidence of mild congestive failure/fluid overload 2. Small left pleural effusion 3. Low lung volumes 4. Left upper lobe atelectasis/consolidation Electronically signed by: Tyrone Coombs M.D. 07/17/2016 7:04 PM Dictated Date/Time: 07/17/2016 7:03 PM The status of this report is Signed. Draft = Not yet reviewed or approved by Radiologist. Signed = Reviewed and approved by Radiologist. CT ANGIOGRAM OF THE CHEST CLINICAL HISTORY: Atypical chest pain and cough. COMPARISON STUDY: Chest x-ray dated 07/17/2016 TECHNIQUE: Following the IV administration of 102 mL of Optiray-320, CT angiogram of the thorax was performed from the thoracic inlet to the lung bases utilizing the pulmonary embolus protocol. Images are reviewed in the axial, sagittal, and coronal planes. IV contrast was administered without complication. MIP imaging was performed. CT DOSE: 636.73 mGy.cm FINDINGS: No pathologically enlarged axillary mediastinal or hilar lymph nodes were visualized. PA sitting thoracic aorta measures 37 mm. No intimal flaps are visualized. There were no pulmonary artery filling defects to indicate acute pulmonary embolism. No pleural effusions are visualized. There is dense bilateral lower lobe atelectasis/consolidation. Evaluation of the pulmonary arteries and the lung parenchyma is somewhat limited due to respiratory motion artifact. There are 2 hepatic hypodensities, the largest of which measures 21 mm. The larger lesion approaches water attenuation likely represents a cyst. The smaller lesion slightly exceeds water attenuation, and is therefore indeterminate. There is fatty atrophy the pancreas. There is marked tracheomalacia. The AP diameter of the trachea is 3 mm IMPRESSION: 1. No CT evidence of acute pulmonary embolism 2. Marked tracheomalacia 3. Dense bilateral lower lobe atelectasis/consolidation Electronically signed by: Tyrone Coombs M.D. 07/17/2016 10:45 PM Dictated Date/Time: 07/17/2016 10:40 PM The status of this report is Signed. Draft = Not yet reviewed or approved by Radiologist. Signed = Reviewed and approved by Radiologist. VIDEO SWALLOW HISTORY: Pneumonia, respiratory distress. Aspiration. TECHNIQUE: Video fluoroscopic evaluation of swallowing was performed in the AP and lateral projections by the speech pathology staff. The patient is fed nectar-thick and thin liquid barium, a barium coated wafer, and barium pudding. FLUOROSCOPY TIME: 2.3 minutes. COMPARISON STUDY: None. FINDINGS: The swallowing mechanics appear normal for age. There is no penetration or aspiration. There is mild disordered esophageal motility IMPRESSION: 1. No aspiration identified. 2. Please see the speech pathologist report for detailed findings and recommendations. Electronically signed by: Tyrone Coombs M.D. 07/18/2016 1:16 PM Dictated Date/Time: 07/18/2016 1:00 PM The status of this report is Signed. Draft = Not yet reviewed or approved by Radiologist. Signed = Reviewed and approved by Radiologist. CHEST ONE VIEW PORTABLE CLINICAL HISTORY: s/p tracheal stent COMPARISON STUDY: 07/17/2016 FINDINGS: The cardiac and mediastinal contours remain stable. The reported tracheal stent is not visualized on conventional radiographic imaging. There is no pneumothorax. There are persistent bibasilar opacities.[ IMPRESSION: Persistent bibasal airspace opacities. The reported tracheal stent is not visualized with certainty on conventional radiographic imaging Electronically signed by: Tyrone Coombs M.D. 07/20/2016 3:00 PM Dictated Date/Time: 07/20/2016 2:59 PM The status of this report is Signed. Draft = Not yet reviewed or approved by Radiologist. Signed = Reviewed and approved by Radiologist. Patient Name: DIMPLE PARISI Unit Number: [id number] Dictated: 07/20/16 1424 Transcribed: 07/20/16 1424 Printed Date/Time: [~ rep prt dt]/[~ rep prt tm] [~ rep ct labl] - [~ rep ct ivnm] [facility] [place] [address] Dictated: 07/20/161423 Transcribed: 07/20/16 142 JA Printed Date/Time: [~ rep prt dt]/[~ rep prt tm] [~ rep ct labl] - [~ rep ct ivnm] Intraoperative fluoroscopic image of the chest CLINICAL HISTORY: Bronchoscopy with stent placement COMPARISON STUDY: Chest CT and chest radiograph July 09, 2016. Fluoroscopy time: 139.1 seconds. FINDINGS: 1 fluoroscopic image of the chest was obtained. A linear metallic density projecting over the lower chest is likely on the patient. This is indeterminate. A stent is not well visualized on this exam but may be present. There is motion artifact on the study. IMPRESSION: Stent not well visualized on this exam due to motion artifact and partial visualization of the chest. Electronically signed by: Irvin Thompson M.D. 07/20/2016 2:27 PM Dictated Date/Time: 07/20/2016 2:24 PM The status of this report is Signed. Draft = Not yet reviewed or approved by Radiologist. Signed = Reviewed and approved by Radiologist. SINGLE VIEW CHEST CLINICAL HISTORY: Status post tracheal stent placement. FINDINGS: An AP, portable, upright chest radiograph is compared to study dated 07/20/2016 and correlated with chest CT dated 07/17/2016. The examination is significantly degraded by portable technique, apical lordotic positioning, and patient rotation. The heart is mildly enlarged. A density projecting over the trachea likely represents the reported history of a tracheal stent. There are low lung volumes and bibasilar atelectasis. No airspace consolidation is seen typical for pneumonia. A small left pleural effusion is suspected. No pneumothorax is seen. The skeletal structures are osteopenic. The bony thorax is grossly intact. Enteric contrast is noted in the right colon. IMPRESSION: 1. A density projecting over the trachea likely corresponds to the reported history of a tracheal stent. 2. Low lung volumes with significant bibasilar atelectasis. 3. A small left pleural effusion is suspected. 4. Cardiac enlargement. Electronically signed by: Bucky Lugo M.D. 07/21/2016 8:24 AM Dictated Date/Time: 07/21/2016 8:22 AM The status of this report is Signed. Draft = Not yet reviewed or approved by Radiologist. Signed = Reviewed and approved by Radiologist. Patient Name: DIMPLE PARISI Unit Number: [id number] Dictated: 07/23/16839 Transcribed: 07/23/16839 ARG Printed Date/Time: [~ rep prt dt]/[~ rep prt tm] [~ rep ct labl] - [~ rep ct ivnm] [facility] Radiology Department [place] [id number] Dictated: 07/23/16839 Transcribed: 07/23/16839 ARG Printed Date/Time: [~ rep prt dt]/[~ rep prt tm] [~ rep ct labl] - [~ rep ct ivnm] CT OF THE CHEST WITHOUT IV CONTRAST CLINICAL HISTORY: tracheal stent / bilateral lower lobe consolidation COMPARISON STUDY: 07/17/2016 CT DOSE: 888.48 mGy.cm TECHNIQUE: CT of the thorax was performed from the thoracic inlet to the lung bases. Images are reviewed in the axial, sagittal, and coronal planes. IV contrast was not administered for this examination. FINDINGS: Thyroid: Imaged portions of the thyroid gland are normal in appearance. Thoracic aorta: The thoracic aorta is normal in course and caliber, noting standard 3 vessel arch anatomy. Heart: The heart is normal in size and configuration, without pericardial effusion. Lungs and pleural spaces: There has been interval placement of a tracheal stent. The stent terminates 21 mm above the devika. There is persistent bilateral lower lobe atelectasis/consolidation with mild improvement on the left. There is radiographic evidence of emphysema. Mediastinum: There is no mediastinal lymphadenopathy. Rubi: Clear. Axilla: Clear. Upper abdomen: Multiple hepatic hypodensities are again evident. There is atrophy the pancreas. Skeletal structures: There are no lytic or blastic osseous lesions. IMPRESSION: 1. Interval placement of a tracheal stent 2. Persistent bibasal atelectasis/consolidation with slight improvement on the left. Electronically signed by: Tyrone Coombs M.D. 07/23/2016 8:53 AM Dictated Date/Time: 07/23/2016 8:40 AM The status of this report is Signed. Draft = Not yet reviewed or approved by Radiologist. Signed = Reviewed and approved by Radiologist. Rigid and fiberoptic bronchoscopy. Insertion of a 20 mm x 8 cm tracheal stent under fluoroscopic and bronchoscopic guidance. Consultations: CT surgery- Dr. Garcia Pulmonary- Dr. Hightower Urology- Sayda Xavier Medication Reconciliation New Medications: Prednisone Tab (Prednisone) 10 Mg Tab 10 MG PO DAILY for 10 Days, #14 TAB 20 mg x3 days, 15 mg x3 days, 10 mg x2 days, 5 mg x2 days Tamsulosin HCl (Tamsulosin HCl) 0.4 Mg Cap 0.4 MG PO HS for 30 Days, #30 CAP Continued Medications: Albuterol Sulf (Albuterol Sulfate) 2.5 Mg/3 Ml Nebu 3 ML INH QID PRN for SOB/Wheezing Aspirin (Aspirin Ec) 81 Mg Tab 81 MG PO DAILY Budesonide/Formoterol Fumarate (Symbicort 160/4.5 Inhaler ) Aero 2 PUFFS INH BID, INHALER Ferrous Sulfate (Iron) 325 Mg Tab 325 MG PO Q2D Finasteride (Proscar) 5 Mg Tab 5 MG PO DAILY, TAB Fluticasone Propionate (Nasal) (Flonase Allergy Relief) 50 Mcg/Act Spr 2 SPRAY WILLY DAILY Loratadine (Claritin) 10 Mg Tab 10 MG PO DAILY, TAB Lorazepam (Ativan) 0.5 Mg Tab 1 MG PO HS, TAB Melatonin (Melatonin Maximum Strengt) 5 Mg Tab 5 MG PO HS Omeprazole (Prilosec) 20 Mg Capcr 20 MG PO DAILY, CAP Oxygen (Oxygen) Gas 3 LITERS NA CONTINOUS VIA BI-PAP Polyethylene Glycol 3350 (Polyethylene Glycol 3350) 1 Pow Pow 17 GM PO DAILY, #527 GM Ropinirole (Requip) 0.5 Mg Tab 0.5 MG PO DAILY@ NOON, TAB Ropinirole (Requip) 0.5 Mg Tab 1 MG PO HS, TAB Trazodone Hcl (Trazodone) 100 Mg Tab 100 MG PO HS, TAB Discontinued Medications: Sulfa/Trimethoprim (Bactrim Ds 800MG/160MG) Tab 1 TAB PO BID, #6 TAB Referrals At Discharge Follow up Referrals: Family Practice Referral - Within 1 Week with Ernie Sanchez D.O. Surgery Referral - Within 2 Weeks with Pedro Garcia MD Urologist Referral - Within 1 Week with Black, Sayda M., ENGINE DISPATCHER Discharge Exam Review of Systems: Constitutional: No chills, No fatigue, No fever, No sweats, No weakness ENT: No hearing loss Respiratory: + cough, + sputum, No hemoptysis, No shortness of breath, No wheezing Cardiovascular: + edema, No chest pain, No palpitations Abdomen: No constipation, No diarrhea, No nausea, No pain, No vomiting Musculoskeletal: No calf pain, No joint pain, No muscle pain, No swelling Genitourinary - Male: + urinary retention (Gonzalez in place ) Neurologic: No numbness/tingling, No weakness Psychiatric: No anxiety, No depression symptoms Hematologic / Lymphatic: No abnormal bleeding/bruising Integumentary: No itch, No new/changing skin lesions, No rash Physical Exam: General Appearance: no apparent distress Eyes: normal inspection, PERRL ENT: hearing grossly normal Neck: supple Respiratory/Chest: lungs clear, no respiratory distress, no accessory muscle use, + decreased breath sounds (bilateral lung bases ) Cardiovascular: regular rate, rhythm Abdomen / GI: normal bowel sounds, non tender, soft Extremities: no calf tenderness, + pedal edema (+1 of left lower extremity ) Neurologic/Psychiatric: alert, normal mood/affect, oriented x 3 Skin: normal color, warm/dry, no rash Hospital Course 81 yo male with Hx COPD with chronic respiratory failure, CVA, [place], RLS, BPH, Anemia, DMII, presents to the ER with acute hypoxemic respiratory failure after two weeks of productive cough illness with bibasilar PNA and atelectasis, with severe tracheomalacia. Acute on chronic hypoxemic respiratory failure, COPD exacerbation, bibasilar suspected Gram negative PNA in setting of HCAP with atelectasis: - Severe tracheomalacia -- Video swallow w/o evidence of aspiration -- Endotracheal stent placed /3 and copious thick sputum visualized and lavaged out of lower lobes bilaterally-bronchial washings did not get sent for studies/culture -- CT surgery following; -- Repeat chest CT on 07/23- 1. Interval placement of a tracheal stent. 2. Persistent bibasilar atelectasis/consolidation with slight improvement on the left. -- Leave stent in place x a couple of weeks and f/u outpatient - Maintain O2 sats >93%--> wean from O2 - Received IV Solu Medrol and then switched to PO prednisone and slow taper over 2 weeks (murali started on 07/21) - Continue Q6HWA duonebs + PRN for wheezing, continue Symbicort - Incentive spirometry, flutter valve, vibration vest and chest PT - Continue Zosyn to cover for aspiration PNA as well as GNR PNA, and d/c'd Vanco --> as MRSA swab negative -- Will d/c Zosyn on 07/24 per pulmonary recommendation - Sputum culture negative x2 - Pulmonary following, appreciate recommendations Obstructive sleep apnea: Use home CPAP Restless leg syndrome: Continue Ropinirole 0.5mg @ noon, 1 mg HS Anxiety, insomnia: Continue lorazepam 0.5mg PO BID + trazodone 100mg PO HS- ok to use if has CPAP in place GERD: Continue PPI Hx CVA: - Continue ASA - No statin, ?possibly due to intolerance DMII, diet controlled, with hyperglycemia induced by IV steroids: - HgbA1C 6.7% 04/2016 - BSG ACHS with sliding insulin scale BPH, Urinary retention- Gonzalez placed on 07/21: - Finasteride and Flomax - Consulted urology, appreciate recommendations--> leaving Gonzalez in place for 7- 10 days, outpatient trial of void Anemia, stable: Continue Fe tabs Code Status: LEVEL V, DNR VTE Prophylaxis: Lovenox 40 mg SQ daily, TEDs + SCDs Dispo: Discharge to home with health services Total Time Spent: Greater than 30 minutes This includes examination of the patient, discharge planning, medication reconciliation, and communication with other providers. Discharge Instructions Please refer to the electronic Patient Visit Report (Discharge Instructions) for additional information. Follow-Up Please follow-up with your PCP within 5-7 days Please follow-up with Dr. Garcia in 2 weeks Please follow-up with Urology on 07/31/16 Please follow-up/keep all of your subspecialty appointments Additional Copies To Ernie Sanchez D.O.
--- NOTE | 2016-07-24 10:14 | Discharge Instructions ---
Discharge Instructions Date of Service Jul 24, 2016. Admission Reason for Admission: Copd; Dm, New Onset; Hypoxia; Pnx; Resp. Distress Discharge Discharge Diagnosis / Problem: COPD exacerbation; pneumonia; tracheomalecia Discharge Goals Goal(s): Decrease discomfort, Improve function, Improve disease control, Learn about illness, Diagnostic testing, Therapeutic intervention, Prevent Disease Progression Activity Recommendations Activity Limitations: resume your previous activity . Instructions / Follow-Up Instructions / Follow-Up New medications: 1. Tamsulosin 0.4 mg by mouth at bedtime. (Begin tonight, 07/24) 2. Prednisone murali- 20 mg by mouth once daily x3 days, then 15 mg by mouth x3 days, then 10 mg by mouth x2 days, then 5 mg by mouth x2 days. (Begin on 07/25 ) Resume all other regular home medications as prescribed to you You will have a Gonzalez catheter at discharge until you follow-up with Urology. At that time, they will try a voiding trial (to see if you can pee on your own) . Please follow-up with your PCP within 5-7 days Please follow-up with Dr. Garcia in 2 weeks. You should hear of an appointment in the next 1-2 days. If you do not, please call the office at [phone] Please follow-up with scheduled Urology appointment on 07/31/16 Please follow-up/keep all of your subspecialty appointments Current Hospital Diet Patient's current hospital diet: Diabetes Type 2 Diet Discharge Diet Recommended Diet: Diabetes Type 2 Diet Procedures Procedures Performed: 1. Flexible and Rigid Bronchoscopy with Tracheal Stent 2. Chest CT 3. Chest x-rays 4. Video swallow study Pending Studies Studies pending at discharge: no Laboratory Results Last 24 Hours Test 07/23/16 11:01 07/23/16 16:15 07/23/16 19:58 07/24/16 07:30 Bedside Glucose 161 mg/dl 201 mg/dl 145 mg/dl White Blood Count 9.26 K/uL Red Blood Count 3.80 M/uL Hemoglobin 11.8 g/dL Hematocrit 37.4 % Mean Corpuscular Volume 98.4 fL Mean Corpuscular Hemoglobin 31.1 pg Mean Corpuscular Hemoglobin Concent 31.6 g/dl RDW Standard Deviation 51.7 fL RDW Coefficient of Variation 14.4 % Platelet Count 133 K/uL Mean Platelet Volume 9.1 fL Sodium Level 139 mmol/L Potassium Level 3.8 mmol/L Chloride Level 97 mmol/L Carbon Dioxide Level 31 mmol/L Anion Gap 11.0 mmol/L Blood Urea Nitrogen 17 mg/dl Creatinine 1.20 mg/dl Est Creatinine Clear Calc Drug Dose 56.5 ml/min Estimated GFR () 64.4 Estimated GFR (Non- 55.6 BUN/Creatinine Ratio 14.1 Random Glucose 124 mg/dl Calcium Level 7.9 mg/dl Magnesium Level 2.5 mg/dl Test 07/24/16 07:38 Bedside Glucose 125 mg/dl Hemoglobin A1c Test 05/12/16 13:28 Range/Units Estimated Average Glucose 146 mg/dl Hemoglobin A1c 6.7 H 4.5-5.6 % Medical Emergencies . Who to Call and When: Medical Emergencies: If at any time you feel your situation is an emergency, please call 911 immediately. . Non-Emergent Contact Non-Emergency issues call your: Primary Care Provider Call Non-Emergent contact if: you have a fever, your pain is unusual for you, your pain is concerning you, you have any medication questions . . "Provider Documentation" section prepared by Chica Greene. VTE Core Measure Inpt VTE Proph given/why not?: Enoxaparin (Lovenox)KEM, T.E.Cale. Stockings, SCD's
[2016-07-24 11:05] VITALS: PULSE 74; O2SAT 94
[2016-07-24 11:22] VITALS: BP 122/71; PULSE 67; TEMP 36.6; O2SAT 96
[2016-07-24] MEDS: ROPINIROLE HCL 0.25 MG TAB PO SCH (12:03)
[2016-08-10] MEDS ORDERED: FLM4 PO (13:48)
== END 2016-07-24 13:10 | disposition home health service (06) | DRG 166 ==
LOC: ENRESERVDT → ENRESERVTM → C.EDB 17:45 → C.MS2W 07-18 00:26
PROVIDERS: ADMIT Internal Medicine; ATTEND Internal Medicine
PROC: 0BH Respiratory System, Insertion (ICD-10-PCS; principal; 2016-07-20 12:00)
PROC: 0B9F8ZX Drainage of Right Lower Lung Lobe, Via Natural or Artificial Opening Endoscopic, Diagnostic (ICD-10-PCS; principal; 2016-07-20 12:00)
PROC: 0B9J8ZX Drainage of Left Lower Lung Lobe, Via Natural or Artificial Opening Endoscopic, Diagnostic (ICD-10-PCS; principal; 2016-07-20 12:00)
DX: J96.21 Acute and chronic respiratory failure with hypoxia (principal); J44.1 Chronic obstructive pulmonary disease with (acute) exacerbation; I69.954 Hemiplegia and hemiparesis following unspecified cerebrovascular disease affecting left non-dominant side; J18.9 Pneumonia, unspecified organism; J98.11 Atelectasis; G25.81 Restless legs syndrome; G47.33 Obstructive sleep apnea (adult) (pediatric); Z77.090 Contact with and (suspected) exposure to asbestos; Z87.891 Personal history of nicotine dependence; J39.8 Other specified diseases of upper respiratory tract; K76.89 Other specified diseases of liver; Z88.2 Allergy status to sulfonamides; N40.1 Benign prostatic hyperplasia with lower urinary tract symptoms; R33.9 Retention of urine, unspecified; D64.9 Anemia, unspecified; E11.65 Type 2 diabetes mellitus with hyperglycemia; Z66 Do not resuscitate; K21.9 Gastro-esophageal reflux disease without esophagitis

== ENCOUNTER → 2016-08-07 | Outpatient (CLI) | payer OTHER ==
[~2016-08-07] MED LIST changes: -AMOX1TAB43 PO; -BENZ100C84 PO; -DOCU100C31 PO; +FLM4 PO
--- NOTE | 2016-08-07 09:30 | DIAGNOSTIC IMAGING REPORT ---
CHEST 2 VIEWS ROUTINE CLINICAL HISTORY: COPD, tracheomalacia. COMPARISON STUDY: 07/21/2016 FINDINGS: There is a tracheal stent present. The inferior margin of the stent extends to near the devika. Slight inferior migration of the stent cannot be excluded. There is no failure. There is no lobar consolidation. There is improving bibasilar atelectasis.[ IMPRESSION: 1. Improving bibasilar atelectatic changes 2. Tracheal stent, the inferior margin of which appears to extend to near the level of the devika Electronically signed by: Tyrone Coombs M.D. 08/07/2016 9:28 AM Dictated Date/Time: 08/07/2016 9:26 AM
== END | disposition home or self-care (01) ==
LOC: C.RAD1850 08:55
PROVIDERS: ATTEND Surgery
DX: J18.9 Pneumonia, unspecified organism (principal); J44.9 Chronic obstructive pulmonary disease, unspecified; J39.8 Other specified diseases of upper respiratory tract

== ENCOUNTER 2016-08-22 05:09 | Day surgery (SDC) | payer OTHER ==
[2016-08-10 13:52] VITALS: BMI 28.0
[~2016-08-22] VITALS: Ht 182.9 cm; Wt 95.5 kg
[2016-08-22] MEDS ORDERED: LACTATED RINGER'S 1000ML 1,000 ML IV SCH (06:00)
[2016-08-22 06:03] VITALS: BP 114/64; PULSE 58; TEMP 36.6; O2SAT 94; Ht 182.9 cm; Wt 95.5 kg
[2016-08-22] MEDS ORDERED: LIDOCAINE HCL 2% 2 ML VIAL (20MG/ML) ONE (06:56)
[2016-08-22] MEDS ORDERED: PROPOFOL IV EMULSION 10 MG/ML 20 ML VIAL IV ONE ×2 (06:56→08:24)
[2016-08-22] MEDS ORDERED: FENTANYL CITRATE INJ 50 MCG/1 ML 2 ML VIAL ONE (06:57)
[2016-08-22] MEDS ORDERED: MIDAZOLAM HCL 1 MG/ML 2ML VIAL ONE (06:57)
[2016-08-22] MEDS ORDERED: REMIFENTANIL 1 MG VIAL ONE (06:58)
--- NOTE | 2016-08-22 07:03 | Discharge Instructions ---
Discharge Instructions Date of Service Aug 22, 2016. Visit Reason for Visit: Tracheomalacia, Diabetes Discharge Discharge Diagnosis / Problem: Tracheomalacia Discharge Goals Goal(s): Decrease discomfort Activity Recommendations Activity Limitations: resume your previous activity (in 24 hours) Anesthesia . Post Anesthesia Instructions: If you have had General Anesthesia or IV Sedation: * Do not drive today. * Resume driving when surgeon permits. * Do not make important decisions or sign legal documents today. * Call surgeon for: 1. Temperature elevations greater than 101 degrees F. 2. Uncontrollable pain. 3. Excessive bleeding. 4. Persistent nausea and vomiting. 5. Medication intolerance (nausea, vomiting or rash). * For nausea and vomiting use only clear liquids such as: tea, soda, bouillon until nausea subsides, then gradually increase diet as tolerated. * If you have any concerns or questions, call your surgeon's office. If physician is unavailable and it is an emergency, call 911 or go to the nearest emergency room. . Instructions / Follow-Up Instructions / Follow-Up 1. Keep yur scheduled appointment with Dr. Garcia on August 28 @ 11:15. You will need a chest x-ray prior to this appointment. 2. You may cough up some blood. Call physician if an excessive amount is noted. Diet Recommendations Recommended Home Diet: resume previous diet Pending Studies Studies pending at discharge: no Medical Emergencies . Who to Call and When: Medical Emergencies: If at any time you feel your situation is an emergency, please call 911 immediately. . Non-Emergent Contact Non-Emergency issues call your: Surgeon Call Non-Emergent contact if: you have a fever . . "Provider Documentation" section prepared by Jelani Doshi.
[2016-08-22] MEDS ORDERED: EpHEDrine SULFATE 50MG/5ML SYR ONE ×2 (08:07→09:37)
[2016-08-22] MEDS ORDERED: ONDANSETRON INJ 2 MG/ML 2 ML VIAL IV PRN (08:15)
[2016-08-22] MEDS ORDERED: ALBUT/IPRATROP 3MG/0.5MG NEB 3 ML VIAL INH PRN (08:15)
[2016-08-22] MEDS ORDERED: ATROPINE SULFATE 0.1 MG/ML 5ML SYR IV PRN (08:15)
[2016-08-22] MEDS ORDERED: FENTANYL CITRATE INJ 50 MCG/1 ML 2 ML VIAL IV PRN (08:15)
[2016-08-22] MEDS ORDERED: EpHEDrine SULFATE INJ 50 MG/ML AMP IV PRN (08:15)
--- NOTE | 2016-08-22 08:29 | DIAGNOSTIC IMAGING REPORT ---
CHEST ONE VIEW PORTABLE CLINICAL HISTORY: s/p tracheal stent removal COMPARISON STUDY: 08/07/2016 FINDINGS: The cardiac and mediastinal contours remain stable. There has been interval removal of the tracheal stent. There are by basilar opacities, likely atelectatic.[ There is no failure. IMPRESSION: 1. Interval removal of the tracheal stent 2. Bibasilar opacities, likely atelectatic Electronically signed by: Tyrone Coombs M.D. 08/22/2016 8:28 AM Dictated Date/Time: 08/22/2016 8:26 AM
[2016-08-22] MEDS ORDERED: PHENYLEPHRINE 100MCG/ML 5ML SYR IV PRN (08:30)
[2016-08-22] MEDS ORDERED: PHENYLEPHRINE 100MCG/ML 5ML SYR ONE (08:33)
--- NOTE | 2016-08-22 08:39 | OPERATIVE REPORT ---
DATE OF OPERATION: 08/22/2016 PREOPERATIVE DIAGNOSIS: Indwelling tracheal stent for tracheomalacia. POSTOPERATIVE DIAGNOSIS: Same. PROCEDURE: Rigid bronchoscopy with removal of tracheal stent. SURGEON: Dr. Garcia. PR MANAGER: Adam Baez, respiratory therapy. ANESTHESIA: General anesthesia with jet ventilation via rigid bronchoscope. SPECIFICS OF PROCEDURE: Hilario Carrington is an 81-year-old male who came in with terrible tracheomalacia with persistent bilateral lower lobe pneumonia which we could not clear. I inserted a tracheal stent for his severe tracheomalacia back on 07/20/2016. The patient improved after this. This 20 mm x 8 cm stent worked quite nicely actually. He had no pain with it. He was able to clear his secretions much better. His cough improved. As it has been in for over a month now, I felt that removing this, since he has cleared his bilateral lower lobe infiltrates, would be advisable. On 08/22/2016, the patient was brought to the operating room. General anesthesia was induced. The patient is edentulous and we were easily able to insert a rigid bronchoscope. This 8.5 scope was placed, we could easily see the stent. This was grasped with a long Alligator clamp and pulled out. I pulled the entire scope out at this time. I then reinserted the rigid scope and we used jet ventilation. The saturations kept quite good. I then suctioned out some blood and some mucus that was along the right mainstem bronchus. This looked much better. He still had tracheomalacia when coughing and inhaling, but it did appear to me to be improved. He was stable upon his transfer back to the postanesthesia care unit after I removed the rigid bronchoscope. He tolerated it well with negligible blood loss. I attest to the content of the Intraoperative Record and any orders documented therein. Any exceptio ns are noted below.
[2016-08-22 09:25] VITALS: BP 118/71; PULSE 74; TEMP 36.5; O2SAT 97
--- NOTE | 2016-08-22 09:28 | Anesthesiology Progress Note ---
Anesthesia Post Op Note Date & Time Aug 22, 2016 at 09:29 Vital Signs Pain Intensity: 0 Vital Signs Past 12 Hours Date Time Temp Pulse Resp B/P Pulse Ox O2 Delivery O2 Flow Rate FiO2 08/22/16 09:13 37.1 08/22/16 09:13 67 17 08/22/16 09:13 69 17 97 08/22/16 09:10 99/64 08/22/16 09:08 74 15 96 08/22/16 09:08 72 15 08/22/16 09:07 70 23 08/22/16 09:07 71 23 97 08/22/16 09:05 112/68 08/22/16 09:02 69 20 08/22/16 09:02 70 20 96 08/22/16 09:00 97/70 08/22/16 08:57 69 15 97 08/22/16 08:57 70 15 08/22/16 08:55 101/64 08/22/16 08:52 75 20 08/22/16 08:52 75 20 96 08/22/16 08:51 76 20 90/56 08/22/16 08:51 76 20 96 08/22/16 08:46 74 17 08/22/16 08:46 72 17 97 08/22/16 08:45 102/66 08/22/16 08:41 75 21 08/22/16 08:41 75 21 98 08/22/16 08:40 104/65 08/22/16 08:36 76 16 08/22/16 08:36 76 16 97 08/22/16 08:35 98/66 08/22/16 08:32 75 21 08/22/16 08:32 75 21 100 08/22/16 08:30 99/65 08/22/16 08:27 77 17 08/22/16 08:27 77 17 99 08/22/16 08:26 78 15 99 08/22/16 08:26 79 15 08/22/16 08:25 80/55 08/22/16 08:21 78 16 99 08/22/16 08:21 78 16 08/22/16 08:20 87/45 08/22/16 08:16 83 19 08/22/16 08:16 84 19 91/68 99 08/22/16 08:14 95/60 08/22/16 08:11 79 20 82/57 99 08/22/16 08:11 36.7 82 20 82/57 99 Mask 10 08/22/16 08:11 80 20 08/22/16 06:03 36.6 58 22 114/64 94 Nasal Cannula 3 Notes Mental Status: alert / awake / arousable, participated in evaluation Pt Amnestic to Procedure: Yes Nausea / Vomiting: adequately controlled Pain: adequately controlled Airway Patency, RR, SpO2: stable & adequate BP & HR: stable & adequate Hydration State: stable & adequate Anesthetic Complications: no major complications apparent
[2016-08-22 09:55] VITALS: BP 133/68; PULSE 80; TEMP 36.8; O2SAT 95
[2016-08-22 10:26] VITALS: BP 105/67; PULSE 85; TEMP 36.3; O2SAT 100
== END 2016-08-22 10:25 | disposition home or self-care (01) ==
LOC: C.ACU 05:09
PROVIDERS: ATTEND Surgery
DX: Z46.82 Encounter for fitting and adjustment of non-vascular catheter (principal); J39.8 Other specified diseases of upper respiratory tract; J18.9 Pneumonia, unspecified organism; J44.9 Chronic obstructive pulmonary disease, unspecified; N40.0 Benign prostatic hyperplasia without lower urinary tract symptoms; E11.9 Type 2 diabetes mellitus without complications; D64.9 Anemia, unspecified; F41.9 Anxiety disorder, unspecified; K21.9 Gastro-esophageal reflux disease without esophagitis; G25.81 Restless legs syndrome; G47.30 Sleep apnea, unspecified; R33.9 Retention of urine, unspecified; Z82.49 Family history of ischemic heart disease and other diseases of the circulatory system

== ENCOUNTER → 2016-08-28 | Outpatient (CLI) | payer OTHER ==
--- NOTE | 2016-08-28 11:19 | DIAGNOSTIC IMAGING REPORT ---
CHEST 2 VIEWS ROUTINE CLINICAL HISTORY: J39.8 [id number] dyspnea COMPARISON STUDY: 08/22/2016 FINDINGS: Improved exam. Right lung is now considered clear. Minimal residual atelectatic change left base. IMPRESSION: Improved exam. Minimal residual atelectasis left base. Electronically signed by: Mack Campbell M.D. 08/28/2016 11:16 AM Dictated Date/Time: 08/28/2016 11:16 AM
== END | disposition home or self-care (01) ==
LOC: C.RAD1850 10:18
PROVIDERS: ATTEND Surgery
DX: J39.8 Other specified diseases of upper respiratory tract (principal)

== ENCOUNTER → 2016-10-17 | Outpatient (CLI) | payer OTHER ==
--- NOTE | 2016-10-17 12:42 | DIAGNOSTIC IMAGING REPORT ---
TWO VIEW CHEST CLINICAL HISTORY: Tracheomalacia. FINDINGS: PA and lateral chest radiographs are compared to study dated 08/28/2016. Correlation is made with chest CT dated 07/23/2016. The PA view is degraded by apical lordotic positioning. The the heart is normal in size. There is mild atherosclerotic calcification of the thoracic aorta. Emphysema and chronic interstitial thickening is similar to previous. There is dense bibasilar no consolidation. No pleural effusion or pneumothorax is seen. The skeletal structures are osteopenic. Degenerative change is seen throughout the thoracic spine. IMPRESSION: 1. Emphysema. 2. There is dense bibasilar consolidation, similar in appearance to prior studies. This likely represents atelectasis. Correlate clinically for evidence of superimposed pneumonia. Electronically signed by: Bucky Lugo M.D. 10/17/2016 12:40 PM Dictated Date/Time: 10/17/2016 12:37 PM
== END ==
LOC: C.RAD1850 12:25
PROVIDERS: ATTEND Physician Assistant
DX: J39.8 Other specified diseases of upper respiratory tract (principal)

== ENCOUNTER → 2017-01-09 | Outpatient (CLI) | payer OTHER ==
[2017-01-09 12:05] LABS: ALLEN TEST POS (POS); ARTERIAL BLD GAS O2 SATURATION 96.1 % (90-95); ARTERIAL BLOOD GAS BASE EXCESS 3.6 mEq/L (-9-1.8); ARTERIAL BLOOD GAS HCO3 28 mmol/L (19-24); ARTERIAL BLOOD GAS PO2 83 mm/Hg (80-95); ARTERIAL BLOOD GAS pH 7.43 (7.35-7.45); O2 ADMINISTRATION 3 L
[2017-01-09 13:25] LABS: BASO % 0.3 %; BASO ABS # 0.02 K/uL (0-0.2); COMPLETE YES; EOS % 1.1 %; HEMATOCRIT 37.8 % (42-52); IG% 1.2 %; LYMPH % 15.6 %; LYMPH ABS # 1.16 K/uL (1.2-3.4); MEAN CORPUSCULAR HEMOGLOBIN 30.9 pg (25-34); MEAN CORPUSCULAR HGB CONC 32.5 g/dl (32-36); MEAN PLATELET VOLUME 9.1 fL (7.4-10.4); MONO % 7.4 %; NEUT % 74.4 %; PLATELET COUNT 152 K/uL (130-400); RED BLOOD COUNT 3.98 M/uL (4.7-6.1); WHITE BLOOD COUNT 7.45 K/uL (4.8-10.8)
[2017-01-09 14:05] LABS: ALT/SGPT 26 U/L (12-78); AST/SGOT 16 U/L (15-37); BLOOD UREA NITROGEN 12 mg/dl (7-18); BUN/CREATININE RATIO 12.4 (10-20); CALCIUM 8.5 mg/dl (8.5-10.1); CARBON DIOXIDE 29 mmol/L (21-32); CHLORIDE 100 mmol/L (98-107); GLUCOSE 111 mg/dl (70-99); POTASSIUM 4.3 mmol/L (3.5-5.1); SODIUM 133 mmol/L (136-145)
[2017-01-09 14:08] LABS: ALB/GLOB RATIO 1.5 (0.9-2); ALKALINE PHOSPHATASE 88 U/L (45-117)
== END | disposition home or self-care (01) ==
LOC: C.LAB 11:30
PROVIDERS: ATTEND Internal Medicine Pulmonary Disease
DX: J44.9 Chronic obstructive pulmonary disease, unspecified (principal)

== ENCOUNTER → 2017-01-14 | Outpatient (CLI) | payer OTHER ==
[~2017-01-14] MED LIST changes: +OPTIRAY 320 IV PRN
--- NOTE | 2017-01-14 09:48 | DIAGNOSTIC IMAGING REPORT ---
CT OF THE CHEST WITH IV CONTRAST CLINICAL HISTORY: J44.9 HISTORY OF TRACHEAL STENT WITH BILATERAL LOWER LOBE CONSOLIDATION COMPARISON STUDY: 07/23/2016 TECHNIQUE: Following the IV administration of 92 mL of Optiray-320, CT of the thorax was performed from the thoracic inlet to the lung bases. Images are reviewed in the axial, sagittal, and coronal planes. IV contrast was administered without complication. A dose lowering technique was utilized adhering to the principles of ALARA. CT DOSE: 372.50 mGy.cm FINDINGS: Thyroid: Imaged portions of the thyroid gland are normal in appearance. Thoracic aorta: The ascending thoracic aorta measures 4 cm. Pulmonary vasculature: The pulmonary trunk is normal in caliber. There are no central filling defects identified to suggest pulmonary embolus. Note that this examination was not protocoled for the evaluation of pulmonary emboli. HEART: The heart is mildly enlarged. There are coronary artery calcifications. There is no significant pericardial effusion. Lungs and pleural spaces: There has been interval removal of the tracheal stent. There is evidence of tracheomalacia. The AP diameter of the trachea is 5 mm. There is underlying pulmonary emphysema. There is persistent right lower lobe atelectasis/consolidation. There are mild left basilar atelectatic changes. There is no significant pleural fluid. Mediastinum: There are few calcified mediastinal lymph nodes. There is no evidence of pathologic adenopathy by size criteria. Rubi: There are calcified hilar nodes. There is no pathologic adenopathy by size criteria. Axilla: There is no evidence of pathologic adenopathy Upper abdomen: There is a 21 mm left lobe hepatic cyst. Skeletal structures: There are no lytic or blastic osseous lesions. Moderate arthritic changes are present within the right shoulder IMPRESSION: 1. Interval removal of the tracheal stent 2. Emphysema 3. Tracheomalacia 4. Bilateral lower lobe atelectasis/consolidation right greater than left. Electronically signed by: Tyrone Coombs M.D. 01/14/2017 9:46 AM Dictated Date/Time: 01/14/2017 9:39 AM
== END | disposition home or self-care (01) ==
LOC: C.CTS 09:04
PROVIDERS: ATTEND Internal Medicine Pulmonary Disease
DX: J44.9 Chronic obstructive pulmonary disease, unspecified (principal); J39.8 Other specified diseases of upper respiratory tract; R91.8 Other nonspecific abnormal finding of lung field

== ENCOUNTER → 2017-07-25 | Outpatient (CLI) | payer OTHER ==
[~2017-07-25] MED LIST changes: -OPTIRAY 320 IV PRN
--- NOTE | 2017-07-25 15:24 | DIAGNOSTIC IMAGING REPORT ---
TWO VIEW CHEST CLINICAL HISTORY: COPD. FINDINGS: PA and lateral chest radiographs are compared to study dated 10/17/2016 and correlated with chest CT dated 01/14/2017. The PA view is degraded by apical lordotic positioning. The heart is enlarged and there is atherosclerotic calcification of the thoracic aorta. The pulmonary vasculature is noncongested. Emphysema and chronic interstitial thickening are similar to previous. There is a small right pleural effusion with right basilar atelectasis. Atelectasis is seen at the left lung base. The left lung is otherwise clear. There is no pneumothorax. The skeletal structures are osteopenic. The bony thorax appears intact. Degenerative change is noted in the thoracic spine and shoulders. IMPRESSION: 1. Cardiomegaly and emphysema. 2. Small right pleural effusion with associated atelectasis. Electronically signed by: Bucky Lugo M.D. 07/25/2017 3:22 PM Dictated Date/Time: 07/25/2017 3:21 PM
== END | disposition home or self-care (01) ==
LOC: C.RAD1850 14:50
PROVIDERS: ATTEND Internal Medicine Pulmonary Disease
DX: J47.9 Bronchiectasis, uncomplicated (principal); J44.9 Chronic obstructive pulmonary disease, unspecified; I51.7 Cardiomegaly; J90 Pleural effusion, not elsewhere classified; J98.11 Atelectasis

== ENCOUNTER → 2018-01-13 | Outpatient (CLI) | payer OTHER ==
--- NOTE | 2018-01-13 17:55 | DIAGNOSTIC IMAGING REPORT ---
L VENOUS DOPP LOWER EXT UNILAT HISTORY: 82 years-old Male LEFT LEG PAIN acute left leg pain and swelling COMPARISON: None available TECHNIQUE: Multiple real-time sonographic images of the left lower extremity deep venous structures were obtained assessing grayscale appearance, color and spectral flow FINDINGS: Mild subcutaneous edema. There is normal flow, compressibility, phasicity and augmentation of the left lower extremity deep venous structures. IMPRESSION: No sonographic evidence of deep venous thrombosis. The above report was generated using voice recognition software. It may contain grammatical, syntax or spelling errors. Electronically signed by: Fabricio Ruiz M.D. 01/13/2018 5:54 PM Dictated Date/Time: 01/13/2018 5:53 PM
== END | disposition home or self-care (01) ==
LOC: C.ULTR 16:57
PROVIDERS: ATTEND Podiatrist Foot & Ankle Surgery
DX: L97.922 Non-pressure chronic ulcer of unspecified part of left lower leg with fat layer exposed (principal); E11.49 Type 2 diabetes mellitus with other diabetic neurological complication; I82.492 Acute embolism and thrombosis of other specified deep vein of left lower extremity

== ENCOUNTER 2020-01-27 12:33 | Observation (INO) ==
[2020-01-27] MEDS ORDERED: SODIUM CHLORIDE 0.9% 500 ML IV SCH (13:15)
[2020-01-27 13:24] LABS: Appearance Urine Clear (Clear); Bilirubin Urine Negative (Negative); Blood Urine Negative (Negative); Color Urine Yellow; Glucose Urine UA Negative (Negative); Ketones Urine Negative (Negative); Leukocyte Esterase Urine Negative (Negative); Nitrite Urine Negative (Negative); Protein Urine Negative (Negative); Specific Gravity Urine 1.015 (1.000-1.030); Urobilinogen Urine Negative (Negative)
[2020-01-27 13:36] LABS: Basophils # (auto) 0.01 K/uL (0-0.2); Basophils % (auto) 0.1 %; Eosinophils # (auto) 0.01 K/uL (0-0.5); Eosinophils % (auto) 0.1 %; Hematocrit (blood only) 33.7 % (42-52); Hemoglobin 10.5 g/dL (14.0-18.0); Immature Granulocytes # (auto) 0.06 K/uL (0.00-0.02); Immature Granulocytes % (auto) 0.7 %; Lymphocytes % (auto) 5.5 %; Mean Corpuscular Hemoglobin 31.1 pg (25-34); Mean Corpuscular Hgb Conc 31.2 g/dL (32-36); Mean Corpuscular Volume 99.7 fL (80-100); Monocytes # (auto) 0.69 K/uL (0.11-0.59); Monocytes % (auto) 7.5 %; Neutrophils # (auto) 7.87 K/uL (1.4-6.5); Neutrophils % (auto) 86.1 %; Platelet Count 133 K/uL (130-400); RDW Coefficient of Variation 14.6 % (11.5-14.5); RDW Standard Deviation 53.2 fL (36.4-46.3); Red Blood Count 3.38 M/uL (4.7-6.1); White Blood Count 9.14 K/uL (4.8-10.8)
--- NOTE | 2020-01-27 13:46 | XRay Report ---
SINGLE VIEW CHEST CLINICAL HISTORY: Generalized weakness. FINDINGS: 2 AP, portable, upright chest radiographs are compared to study dated 08/22/2016 and correlat ed with chest CT dated 01/14/2017. The examination is degraded by portable technique and apical lordot ic positioning. The heart is enlarged. The pulmonary vasculature is noncongested. Emphysema and chron ic interstitial thickening is similar to previous. There are small pleural effusions with bibasilar a telectasis. No pneumothorax is seen. The skeletal structures are osteopenic. The bony thorax is gross ly intact. Degenerative change is noted in the shoulders. IMPRESSION: 1. Cardiomegaly and emphysema without radiographic evidence of congestive failure. 2. Small pleural effusions. ACT 112: Negative or not required by law. Electronically signed by: Bucky Lugo M.D. 01/27/2020 1:45 PM
[2020-01-27 13:52] LABS: Alanine Aminotransferase 27 U/L (12-78); Albumin Level 3.7 gm/dl (3.4-5.0); Aspartate Aminotransferase 23 U/L (15-37); BUN Creatinine Ratio 24.3 (10-20); Blood Urea Nitrogen 38 mg/dl (7-18); Calcium 8.7 mg/dl (8.5-10.1); Carbon Dioxide 29 mmol/L (21-32); Chloride 105 mmol/L (98-107); Creatinine Clr Calc Pharmacy 36.8 ml/min; Est GFR (African American) 45.2; Glucose 170 mg/dl (70-99); Potassium 4.4 mmol/L (3.5-5.1); Sodium 141 mmol/L (136-145)
[2020-01-27 14:03] LABS: Albumin Globulin Ratio 1.2 (0.9-2); Alkaline Phosphatase 107 U/L (45-117); Bilirubin,Total 0.7 mg/dl (0.2-1); Creatine Kinase 246 U/L (39-308); Total Protein 6.7 gm/dl (6.4-8.2); Troponin I < 0.015 ng/ml (0-0.045)
--- NOTE | 2020-01-27 14:11 | CT Scan Report ---
CT head/brain wo con CLINICAL HISTORY: 84 years-old Male with Pt c/o fall, weakness. Acute head injury status post fall w ith weakness TECHNIQUE: Multiple axial CT images of the head were obtained without contrast. A dose lowering tech nique was utilized adhering to the principles of ALARA. CT DOSE: 614.27 mGy.cm COMPARISON: None. FINDINGS: Mildly motion degraded exam. Age-related involutional changes with ex vacuo ventriculomegaly. Patchy white matter hypodensities suggest chronic microvascular ischemic disease. Cerebral vascular calcific ations. No acute intracranial hemorrhage, midline shift, intracranial mass, hydrocephalus, territoria l ischemia or abnormal extra-axial collection. The calvarium is intact. The paranasal sinuses, mastoid air cells, and middle ear cavities are clear . IMPRESSION: No acute intracranial abnormality. ACT 112: Negative or not required by law. The above report was generated using voice recognition software. It may contain grammatical, syntax o r spelling errors. Electronically signed by: Fabricio Ruiz M.D. 01/27/2020 2:10 PM
--- NOTE | 2020-01-27 16:46 | XRay Report ---
XR pelvis 1-2V routine CLINICAL HISTORY: Left hip pain following fall. COMPARISON: None FINDINGS: No acute fracture is identified within the pelvis or hips. Moderate amount stool within th e rectum is noted. Sacroiliac joints and symphysis pubis are intact. IMPRESSION: No acute fracture within the pelvis or hips. ACT 112: Negative or not required by law. Electronically signed by: Irvin Thompson M.D. 01/27/2020 4:45 PM
--- NOTE | 2020-01-27 16:56 | XRay Report ---
XR femur LT 2V routine CLINICAL HISTORY: Left hip pain following fall. COMPARISON: None FINDINGS: No acute fracture of the left femur is noted. 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 There is no left knee joint effusion. IMPRESSION: No acute fracture of the left femur. ACT 112: Negative or not required by law. Electronically signed by: Irvin Thompson M.D. 01/27/2020 4:54 PM
--- NOTE | 2020-01-27 17:23 | History & Physical Report ---
Date of Service January 27, 2020 Assessment & Plan (1) Fall: With a history of 25 falls since 04/2019 as per daughter. All mechanical and related to left foot drop, peripheral neuropathy, and attempts to walk backwards as per his daughter. He had no prodromal symptoms, no chest pain or palpitations, no loss of consciousness. ECG without ischemia, troponin is negative, TSH is normal. Blood pressures are normal. Sustained a fall 3 days prior to admission and now with left hip pain causing considerable immobility X-rays negative for fracture in the pelvis and left femur No significant metabolic reason for generalized weakness with exception of mild elevated creatinine and mild dehydration Needs PT/OT and rehab placement (2) Generalized weakness: Likely secondary to left hip pain and fall, perhaps some mild dehydration with mildly elevated BUN and creatinine from poor p.o. intake -Hydrate gently with IV fluids-was given 500 mL's of normal saline in the ER, encourage p.o. intake -PT/OT consults and will need rehab placement No other signs or symptoms of infection (3) Left hip pain: With exquisite tenderness to palpation over left greater trochanter, possibly traumatic bursitis secondary to fall X-rays of the left femur and pelvis are negative for fracture Consult orthopedic surgery for further evaluation to see if warrants further imaging and if there is a need for steroid injection -Apply Voltaren gel 4 times daily Tylenol as needed for pain PT/OT (4) Elevated serum creatinine: Creatinine elevated at 1.5 on admission with mildly elevated BUN as well, did have poor p.o. intake with fluids last few days as per daughter Unclear what baseline creatinine is but suspect he could have some element of chronic kidney disease -Follow BMP in the morning Was given 500 mL's of normal saline in the ER and will encourage p.o. intake (5) COPD (chronic obstructive pulmonary disease): Stable with chronic cough, on 3 L nasal cannula -Continue supplemental O2 from home Continue home inhalers, nebs and HFA as needed (6) Type 2 diabetes mellitus: Is diet controlled at home with some hyperglycemia here Check hemoglobin A1c in the morning Accu-Cheks before meals and at bedtime and NovoLog sliding scale as needed (7) Sleep apnea: His daughter brought his BiPAP from home-he may use this here (8) Insomnia: Continue home trazodone and melatonin (9) GERD (gastroesophageal reflux disease): No acute issues -Continue home PPI (10) BPH (benign prostatic hyperplasia): Was retaining urine in the ER and straight cath for 150 mL's No evidence of infection Continue finasteride and Flomax Straight cath as needed every shift for PVR greater than 400 mL's (11) Anxiety: Stable -Continue home Lorazepam as needed although would caution against this with multiple falls (12) Anemia: Hemoglobin mildly low at 10.5 and is macrocytic -Check B12 and folate levels in the morning (13) Urinary retention: As noted above, straight cath as needed (14) 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 Neuropathy precautions, must wear shoes with walking as per daughter. Also has a left foot drop and wears a brace for this -Check B12 levels in the morning (19) Left foot drop: As above (20) Skin tear of left upper extremity: Asked nurse to redress wounds and will consult wound care Secondary to trauma from fall (21) DVT prophylaxis: SCDs Disposition-bring in on observation to medical/surgical unit, needs PT/OT consultations and orthopedic evaluation Will need rehab placement Case management consultation placed-of note, [facility] go to the [place] re[facility], however daughter would prefer him to be somewhere more local. History of Present Illness Chief Complaint: Fall, generalized weakness Primary Care Provider: Ernie Sanchez, DO This patient is a very pleasant 84-year-old male with a history of COPD with chronic respiratory failure with hypoxia on 3 L nasal cannula, MARYLIN on BiPAP, DM 2, tracheomalacia with history of tracheal stent, RLS, anxiety disorder, insomnia, GERD, CVA with residual left-sided weakness, BPH, and anemia who presents to the ER via ambulance with progressively worsening generalized weakness for the last 3 days. His daughter at the bedside whom he lives with reports that he had a fall 3 days ago and sustained 3 skin tears to the left upper extremity. He reports he did not lose consciousness. His son-in-law witnessed the event and noted that the patient tried to take a few steps backward and lost his balance and fell on his left side. The patient reports he had a very mild headache initially but that has since resolved. His daughter reports that the patient has had at least 25 falls in the last 9 months. He has been living with her for the last 6 years. He is able to ambulate with a walker and close contact guard supervision. Since that fall, she reports he progressively became more immobile to the point where she could not even get him out of bed last night. He continued to eat food but his oral intake of fluids has gone down. He denies nausea or vomiting, no abdominal pain, no diarrhea or constipation. He had a large bowel movement on Saturday and a small bowel movement on Saturday. He has not had any fevers or dizziness, no vision changes, no chest pain or shortness of breath. He has a chronic cough which is unchanged. He mostly complains of left hip pain at the time I saw him, but no pains an ywhere else in the joints. His daughter has not noticed any mental status changes. Daughter also reports that her just had surgery and will not be able to help her lift the patient for the next 6 weeks. The patient herself also has lifting restrictions and is not able to get him up out of bed due to his severe weakness. She is not able to care for him at home at this time and is request ing rehab placement. In the ER, he had a CBC which showed a mild macrocytic anemia with a hemoglobin of 10.5, mild thrombocytopenia with platelets 133, and creatinine was elevated at 1.58 with no baseline to compare to. His troponin was negative, LFTs and CK were normal, TSH was normal at 2.39, electrolytes otherwise normal. Urinalysis was normal. He had pelvis and left femur x-rays which were negative for fractures, and a head CT which showed no acute abnormality. A chest x-ray showed cardiomegaly and emphysema, no CHF but with small pleural effusions. Allergies Allergy/AdvReac Type Severity Reaction Status Date / Time Cipro Allergy Intermediate unknown Unverified 08/22/16 05:39 ciprofloxacin Allergy Intermediate unknown Unverified 01/27/20 14:35 nitrofurantoin Allergy Intermediate unknown Unverified 01/27/20 14:35 Home Medications Home Medications Medication Instructions Recorded Confirmed Type Oxygen Home #1 ea 01/06/20 01/06/20 History albuterol sulfate 2.5 mg/0.5 mL 2.5 mg INHALATION Q6H 01/06/20 01/27/20 History solution for nebulization albuterol sulfate 90 mcg/actuation 2 puff INHALATION Q6H PRN 01/06/20 01/27/20 History aerosol inhaler aspirin 81 mg tablet,delayed 81 mg PO DAILY 01/06/20 01/27/20 History release budesonide-formoterol HFA 160 2 puff INHALATION BID 01/06/20 01/27/20 History mcg-4.5 mcg/actuation aerosol inhaler finasteride 5 mg tablet 5 mg PO DAILY 01/06/20 01/27/20 History furosemide 40 mg tablet 40 mg PO DAILY 01/06/20 01/27/20 History loratadine 10 mg tablet 10 mg PO DAILY 01/06/20 01/27/20 History melatonin 5 mg capsule 5 mg PO DAILY PRN cap 01/06/20 01/27/20 History omeprazole 20 mg capsule,delayed 20 mg PO DAILY 01/06/20 01/27/20 History release polyethylene glycol 3350 17 17 g PO DAILY PRN 01/06/20 01/27/20 History gram/dose oral powder potassium chloride 20 mEq 20 meq PO DAILY 01/06/20 01/27/20 History tablet,extended release(part/cryst) tamsulosin 0.4 mg capsule 0.4 mg PO DAILY 01/06/20 01/27/20 History trazodone 100 mg tablet 100 mg PO HS 01/06/20 01/27/20 History ascorbic acid (vitamin C) 500 mg PO BID 01/27/20 01/27/20 History ferrous gluconate 324 mg PO BID 01/27/20 01/27/20 History hydrocortisone 1 applic TOPICAL BID PRN 01/27/20 01/27/20 History lorazepam [Ativan] 1 mg PO BID PRN 01/27/20 01/27/20 History ropinirole 1 mg PO UD 01/27/20 01/27/20 History Past Med/Surg History Medical History (Updated 01/27/20 @ 21:41 by Lulu Oneal MD) Anemia Anxiety BPH (benign prostatic hyperplasia) Bronchiectasis Chronic respiratory failure with hypoxia Collapsed lung COPD (chronic obstructive pulmonary disease) CVA (cerebral vascular accident) CVA (cerebral vascular accident) Diabetes mellitus, type 2 Fall GERD (gastroesophageal reflux disease) Insomnia Left foot drop Peripheral neuropathy Pneumonia RLS (restless legs syndrome) Sleep apnea Tracheomalacia Urinary retention Urinary retention Surgical History H/O cervical spine surgery H/O right inguinal hernia repair History of carpal tunnel surgery of right wrist Family History (Updated 01/27/20 @ 21:31 by Lulu Oneal MD) Other Family history non-contributory Social History Smoking Status: Former smoker Tobacco Type: Cigarettes Age Quit Using Tobacco: 74; Do You Dip or Chew Tobacco: No; Hx Alcohol Use: No Hx Substance Use: No Preferred Language: Chilean Communication Ability: Effective Mathematical Scientist Required: No Beliefs That Will Affect Care: None Current Living Situation: Family Current Living Situation Comment: son and daughter in law Other Information That Helps Us Care for You: No Feels Safe at Home: Yes Safety Concerns: Feels Safe At This Time Review of Systems Review of Systems: All systems reviewed & are unremarkable except as noted in HPI & below Having difficulty completely emptying his bladder with voiding Has a chronic left foot drop Has bilateral neuropathy Physical Exam Constitutional: WD/WN, vitals as above no acute distress Eyes: PERRL, conjunctivae normal, anicteric sclerae + eyelid abnormality (Mild edema of the upper lids) ENMT: external ear and nose normal, oropharynx normal Neck: trachea midline, no thyromegaly Respiratory: normal respiratory effort (With nasal cannula in place); no labored breathing Auscultation: + rhonchi (A few scattered bilateral rhonchi); no crackles and no wheezes Cardiovascular: RRR, no murmur, no edema Vessels: dorsalis pedis pulses present Chest (Breasts): Chest: normal inspection of chest Gastrointestinal (Abdomen): normal bowel sounds, soft, nontender, no hepatosplenomegaly Musculoskeletal: Extremities: + abnormal strength (5/5 throughout upper extremities, 4/5 in left lower extremity secondary to pain in the left hip, 5/5 in right lower extremity), no cyanosis and no clubbing Hip: + limited ROM of hip (Secondary to pain with hip flexion; positive exquisite tenderness to palpation over the left greater trochanter); no skin erythema, no ecchymosis and log roll test negative Otherwise, no tenderness to palpation over shoulders, elbows, wrists, knees or ankles Skin: no rashes, warm and dry Neurologic: moves all extremities (Except with left foot drop) and awake Psychiatric: A+Ox3, euthymic affect Lymphatic: no lymphedema Results & Data Results & Data ([facility]) Vital Signs (Past 12 Hours) Vital Signs Temp Pulse Resp BP Pulse Ox 01/27/20 16:00 60 19 110/67 99 01/27/20 15:30 66 20 101/64 99 01/27/20 15:00 19 100/68 99 01/27/20 14:31 16 93/61 L 98 01/27/20 13:30 61 16 103/66 99 01/27/20 13:00 65 23 113/62 98 01/27/20 12:45 37.1 C 70 26 H 110/67 95 Laboratory Results 01/27/20 01/27/20 01/27/20 Range/Units 21:04 13:18 13:18 WBC 9.14 (4.8-10.8) K/uL RBC 3.38 L (4.7-6.1) M/uL Hgb 10.5 L (14.0-18.0) g/dL Hct 33.7 L (42-52) % MCV 99.7 (80-100) fL MCH 31.1 (25-34) pg MCHC 31.2 L (32-36) g/dL RDW Std Deviation 53.2 H (36.4-46.3) fL RDW Coeff of Elissa 14.6 H (11.5-14.5) % Plt Count 133 (130-400) K/uL MPV 9.0 (7.4-10.4) fL Immature Gran % (Auto) 0.7 % Neut % (Auto) 86.1 % Lymph % (Auto) 5.5 % Rooks % (Auto) 7.5 % Eos % (Auto) 0.1 % Baso % (Auto) 0.1 % Neut # (Auto) 7.87 H (1.4-6.5) K/uL Lymph # (Auto) 0.50 L (1.2-3.4) K/uL Rooks # (Auto) 0.69 H (0.11-0.59) K/uL Eos # (Auto) 0.01 (0-0.5) K/uL Baso # (Auto) 0.01 (0-0.2) K/uL Immature Gran # (Auto) 0.06 H (0.00-0.02) K/uL Sodium 141 (136-145) mmol/L Potassium 4.4 (3.5-5.1) mmol/L Chloride 105 (98-107) mmol/L Carbon Dioxide 29 (21-32) mmol/L Anion Gap 7.0 (3-11) BUN 38 H (7-18) mg/dl Creatinine 1.58 H (0.6-1.4) mg/dl Est Cr Clr Drug Dosing 36.8 ml/min Est GFR ( Amer) 45.2 Est GFR (Non-Af Amer) 39.0 BUN/Creatinine Ratio 24.3 H (10-20) Glucose 170 H (70-99) mg/dl POC Glucose 154 H (70-99) mg/dl Calcium 8.7 (8.5-10.1) mg/dl Total Bilirubin 0.7 (0.2-1) mg/dl AST 23 (15-37) U/L ALT 27 (12-78) U/L Alkaline Phosphatase 107 (45-117) U/L Total Creatine Kinase 246 (39-308) U/L Troponin I < 0.015 (0-0.045) ng/ml Total Protein 6.7 (6.4-8.2) gm/dl Albumin 3.7 (3.4-5.0) gm/dl Globulin 3.0 (2.5-4.0) gm/dl Albumin/Globulin Ratio 1.2 (0.9-2) TSH 2.390 (0.300-4.500) uIu/ml Urine Color Urine Appearance (Clear) Urine pH (4.5-7.5) Ur Specific Worley (1.000-1.030) Urine Protein (Negative) Urine Glucose (UA) (Negative) Urine Ketones (Negative) Urine Blood (Negative) Urine Nitrite (Negative) Urine Bilirubin (Negative) Urine Urobilinogen (Negative) Ur Leukocyte Esterase (Negative) 01/27/20 Range/Units 12:44 WBC (4.8-10.8) K/uL RBC (4.7-6.1) M/uL Hgb (14.0-18.0) g/dL Hct (42-52) % MCV (80-100) fL MCH (25-34) pg MCHC (32-36) g/dL RDW Std Deviation (36.4-46.3) fL RDW Coeff of Elissa (11.5-14.5) % Plt Count (130-400) K/uL MPV (7.4-10.4) fL Immature Gran % (Auto) % Neut % (Auto) % Lymph % (Auto) % Rooks % (Auto) % Eos % (Auto) % Baso % (Auto) % Neut # (Auto) (1.4-6.5) K/uL Lymph # (Auto) (1.2-3.4) K/uL Rooks # (Auto) (0.11-0.59) K/uL Eos # (Auto) (0-0.5) K/uL Baso # (Auto) (0-0.2) K/uL Immature Gran # (Auto) (0.00-0.02) K/uL Sodium (136-145) mmol/L Potassium (3.5-5.1) mmol/L Chloride (98-107) mmol/L Carbon Dioxide (21-32) mmol/L Anion Gap (3-11) BUN (7-18) mg/dl Creatinine (0.6-1.4) mg/dl Est Cr Clr Drug Dosing ml/min Est GFR ( Amer) Est GFR (Non-Af Amer) BUN/Creatinine Ratio (10-20) Glucose (70-99) mg/dl POC Glucose (70-99) mg/dl Calcium (8.5-10.1) mg/dl Total Bilirubin (0.2-1) mg/dl AST (15-37) U/L ALT (12-78) U/L Alkaline Phosphatase (45-117) U/L Total Creatine Kinase (39-308) U/L Troponin I (0-0.045) ng/ml Total Protein (6.4-8.2) gm/dl Albumin (3.4-5.0) gm/dl Globulin (2.5-4.0) gm/dl Albumin/Globulin Ratio (0.9-2) TSH (0.300-4.500) uIu/ml Urine Color Yellow Urine Appearance Clear (Clear) Urine pH 6.0 (4.5-7.5) Ur Specific Worley 1.015 (1.000-1.030) Urine Protein Negative (Negative) Urine Glucose (UA) Negative (Negative) Urine Ketones Negative (Negative) Urine Blood Negative (Negative) Urine Nitrite Negative (Negative) Urine Bilirubin Negative (Negative) Urine Urobilinogen Negative (Negative) Ur Leukocyte Esterase Negative (Negative) Diagnostic Findings Pelvis and left femur x-rays negative for fracture Chest x-ray and head CT as noted in HPI ECG Additional Comments: ECG on 01/27/2020 at 1314 with normal sinus rhythm, incomplete right bundle branch block, no evidence of ischemia Code Status & VTE Plan Code Status DNR/DNI VTE Prophylaxis Plan VTE Prophylaxis will be ordered: Yes PG Care Time/CCT Total # of Minutes Spent Total Time Spent with Patient: Total time spent is greater than 50% in coordination of care (as documented) at patient's floor/unit and/or counseling patient: Coding Level of Care Code 65815 OBS Care - Level 3 Diagnoses Fall W19.XXXA Generalized weakness R53.1 Left hip pain M25.552 Elevated serum creatinine R79.89 COPD (chronic obstructive pulmonary disease) J44.9 Type 2 diabetes mellitus E11.9 Sleep apnea G47.30 Insomnia G47.00 GERD (gastroesophageal reflux disease) K21.9 BPH (benign prostatic hyperplasia) N40.0 Anxiety F41.9 Anemia D64.9 Urinary retention R33.9 Tracheomalacia J39.8 CVA (cerebral vascular accident) I63.9 Restless leg syndrome G25.81 Chronic respiratory failure with hypoxia J96.11 Peripheral neuropathy G62.9 Left foot drop M21.372 Skin tear of left upper extremity S41.112A DVT prophylaxis Z29.9
--- NOTE | 2020-01-27 19:25 | Electrocardiogram Report ---
Test Reason : Blood Pressure : / mmHG Vent. Rate : 063 BPM Atrial Rate : 063 BPM P-R Int : 186 ms QRS Dur : 096 ms QT Int : 406 ms P-R-T Axes : -05 -24 003 degrees QTc Int : 415 ms Normal sinus rhythm Incomplete right bundle branch block Borderline ECG When compared with ECG of 20-JUL-2016 16:52, No significant change was found Confirmed by Sergio Sheffield ([id number]) on 01/27/2020 7:24:48 PM Referred By: REFERRED SELF Confirmed By:Los Sheffield
[2020-01-27] MEDS ORDERED: CARBOHYDRATES FOR HYPOGLYCEMIA PO PRN (20:51)
[2020-01-27] MEDS ORDERED: ONDANSETRON INJ 2 MG/ML 2 ML VIAL IV PRN (20:51)
[2020-01-27] MEDS ORDERED: DEXTROSE 50% 50 ML SYRINGE IV PRN (20:51)
[2020-01-27] MEDS ORDERED: ACETAMINOPHEN 325 MG TAB PO PRN (20:51)
[2020-01-27] MEDS ORDERED: GLUCOSE 10 TABS/TUBE PO PRN (20:51)
[2020-01-27] MEDS ORDERED: POLYETHYLENE (MIRALAX) 17 GM PACK PO PRN (20:51)
[2020-01-27] MEDS ORDERED: ALBUTEROL HFA 8 GM INHALER INH PRN (20:51)
[2020-01-27] MEDS ORDERED: GLUCOSE 40% GEL 15 GM TUBE PO PRN (20:51)
[2020-01-27] MEDS ORDERED: LORazepam 1 MG TAB PO PRN (20:51)
[2020-01-27] MEDS ORDERED: HYDROCORTISONE 1% CRM 30 GM TUBE EXT PRN (20:51)
[2020-01-27] MEDS ORDERED: GLUCAGON FOR INJ 1 MG VIAL SQ PRN (20:51)
[2020-01-27] MEDS ORDERED: MELATONIN 3 MG TAB PO PRN (21:04)
[2020-01-27] MEDS: ASCORBIC ACID 500 MG TAB PO SCH (22:02)
[2020-01-27] MEDS: DICLOFENAC SOD 1% GEL 100 GM TUBE EXT SCH (22:02)
[2020-01-27] MEDS: TRAZODONE HCL 100 MG TAB PO SCH (22:02)
[2020-01-27] MEDS: INSULIN ASPART 100 UNITS/ML 3 ML PEN SC SCH (22:03)
[2020-01-27] MEDS ORDERED: ROPINIROLE HCL 1 MG TABLET PO ONE (22:15)
[2020-01-28] MEDS: ALBUTEROL 0.083% NEBU SOLN 3 ML VIAL INH SCH ×4 (00:59→19:52)
[2020-01-28 06:12] LABS: Basophils # (auto) 0.01 K/uL (0-0.2); Basophils % (auto) 0.1 %; Hematocrit (blood only) 31.8 % (42-52); Immature Granulocytes # (auto) 0.07 K/uL (0.00-0.02); Immature Granulocytes % (auto) 0.7 %; Lymphocytes # (auto) 0.93 K/uL (1.2-3.4); Lymphocytes % (auto) 9.7 %; Mean Corpuscular Hemoglobin 31.5 pg (25-34); Mean Corpuscular Hgb Conc 31.4 g/dL (32-36); Mean Corpuscular Volume 100.3 fL (80-100); Mean Platelet Volume 9.2 fL (7.4-10.4); Monocytes # (auto) 1.03 K/uL (0.11-0.59); Monocytes % (auto) 10.7 %; Neutrophils # (auto) 7.46 K/uL (1.4-6.5); Neutrophils % (auto) 77.8 %; Platelet Count 140 K/uL (130-400); RDW Coefficient of Variation 14.7 % (11.5-14.5); Red Blood Count 3.17 M/uL (4.7-6.1)
[2020-01-28 06:45] LABS: BUN Creatinine Ratio 26.5 (10-20); Creatinine Clr Calc Pharmacy 39.3 ml/min; Est GFR (Non-African American) 42.2; Potassium 4.1 mmol/L (3.5-5.1)
[2020-01-28 06:59] LABS: Estimated Average Glucose 134 mg/dl; Hemoglobin A1C 6.3 % (4.5-5.6)
[2020-01-28 08:44] LABS: Folate (Folic Acid) 14.19 ng/ml (>5.38)
[2020-01-28] MEDS: FLUTICASONE/VILANTEROL 100/25MCG 14 PUFFS/INHALER INH SCH (08:50)
[2020-01-28] MEDS: PANTOprazole 40 MG TAB PO SCH (08:52)
[2020-01-28] MEDS: DICLOFENAC SOD 1% GEL 100 GM TUBE EXT SCH ×4 (08:52→20:43)
[2020-01-28] MEDS: ASPIRIN 81 MG ECTAB PO SCH (08:52)
[2020-01-28] MEDS: FERROUS GLUCONATE 324 MG TAB PO SCH ×2 (08:52→18:13)
[2020-01-28] MEDS: FINASTERIDE 5 MG TAB PO SCH (08:52)
[2020-01-28] MEDS: TAMSULOSIN HCL 0.4 MG CAP PO SCH (08:52)
[2020-01-28] MEDS: ASCORBIC ACID 500 MG TAB PO SCH ×2 (08:52→20:42)
[2020-01-28] MEDS: LORATADINE 10 MG TAB PO SCH (08:53)
[2020-01-28] MEDS: INSULIN ASPART 100 UNITS/ML 3 ML PEN SC SCH ×4 (09:04→20:51)
--- NOTE | 2020-01-28 09:37 | Consultation Report ---
DATE OF CONSULTATION: 01/28/2020 ORTHOPEDIC CONSULTATION CHIEF COMPLAINT: Left hip pain. HISTORY OF PRESENT ILLNESS: The patient is an 84-year-old gentleman with a history of multiple falls, who came to the Emergency Room last night with a complaint of left hip pain. Speaking with the patient, he fell about 3 days ago onto his left buttock as he was ambulating around the corner with his walker. He did not lose consciousness. Reportedly, his son-in-law witnessed the event and the patient reports that 2 people had to lift him up off of the floor. He points to the lateral aspect of the left hip is where it hurts. He says this morning that the SCDs on his lower legs make his legs feel a little numb. However, no distal or proximal numbness below the ankle or above the knee. PAST MEDICAL HISTORY: Includes obstructive sleep apnea, on BiPAP; tracheomalacia with a history of tracheal stent; restless leg syndrome; COPD with chronic respiratory failure and hypoxia, on 3 liters nasal cannula; GERD; history of stroke with residual left-sided weakness; BPH and anemia. MEDICATIONS: Reviewed in the chart. SURGICAL HISTORY, FAMILY HISTORY, SOCIAL HISTORY, 14-POINT REVIEW OF SYSTEMS: Reviewed in the chart as well. PHYSICAL EXAMINATION: GENERAL: Pleasant male, awake in bed. When I arrived this morning, alert and oriented x3. PSYCHIATRIC: Mood and affect are appropriate. NEUROLOGIC: Reveals the patient to have sensation intact to light touch through the L3-S1 dermatomes. He has a negative straight leg raise for any radicular symptoms. BACK: Reveals the patient to have no step-offs and no tenderness to palpation along the thoracic, lumbar spine or over the sacrum. There is no ecchymosis or swelling noted in the back. Neither was there any on his buttock. EXTREMITIES: Left lower extremity exam revealed the patient to have no tenderness to palpation at all in the left lower extremity. This includes over the buttock, the greater trochanter, the anterior-superior iliac spine and the anterior aspect of the hip. No knee joint line tenderness. He tolerates gentle log roll of the leg as well as flexion and extension of the hip and knee. Internal and external rotation of the left hip are also well tolerated. He is actually able to do a straight leg raise for me in bed. Right lower extremity exam revealed the patient to have a fair amount of tenderness to palpation along the medial joint line more than the lateral joint line of the knee. However, he still tolerated gentle flexion and extension of the knee and hip. RESULTS REVIEWED: X-rays done of the pelvis and hip yesterday in the Emergency Room are reviewed. These demonstrate no evidence of fracture. His cortices are actually quite thick for his age. IMPRESSION: Left hip pain of uncertain etiology. No fractures. Most likely has a deep contusion from the fall. No evidence of radicular component to his pain. PLAN: Recommend symptomatic treatment. I do not feel any additional imaging is warranted given his benign physical examination. Anticipate this condition will be self resolving. Ice, rest and mobilization with physical and occupational therapy is recommended. Follow up as needed.
[2020-01-28] MEDS: ROPINIROLE HCL 1 MG TABLET PO SCH (15:40)
--- NOTE | 2020-01-28 15:46 | Hospitalist Progress Note ---
Date of Service January 28, 2020 Assessment & Plan (1) Fall: With a history of 25 falls since 04/2019 as per daughter. All mechanical and related to left foot drop, peripheral neuropathy, and attempts to walk backwards as per his daughter. He had no prodromal symptoms, no chest pain or p alpitations, no loss of consciousness. ECG without ischemia, troponin is negative, TSH is normal. Blood pressures are normal. Sustained a fall 3 days prior to admission and now with left hip pain and right knee pain causing considerable immobility X-rays negative for fracture in the pelvis and left femur No significant metabolic reason for generalized weakness with exception of mild elevated creatinine and mild dehydration Needs PT/OT and rehab placement Left hip pain is now improved as below Now with right knee pain Seen by orthopedics and no further evaluation needed-likely contusion from fall. Awaiting rehab placement (2) Generalized weakness: Likely secondary to left hip pain and fall, perhaps some mild dehydration with mildly elevated BUN and creatinine from poor p.o. intake -Hydrated gently with IV fluids-was given 500 mL's of normal saline in the ER, encourage continued p.o. intake -PT/OT consults and will need rehab placement No other signs or symptoms of infection Somewhat improved today (3) Left hip pain: With exquisite tenderness to palpation over left greater trochanter upon admission, possibly traumatic bursitis secondary to fall X-rays of the left femur and pelvis are negative for fracture Consult orthopedic surgery for further evaluation to see if warrants further imaging and if there is a need for steroid injection After using Voltaren gel, patient's left hip pain is now completely resolved Appreciate orthopedic surgery consultation if no further evaluation needed, rest ice, anti-inflammatories -Continue to apply Voltaren gel 4 times daily Tylenol as needed for pain PT/OT appreciated (4) Elevated serum creatinine: Creatinine elevated at 1.5 on admission with mildly elevated BUN as well, did have poor p.o. intake with fluids last few days as per daughter Unclear what baseline creatinine is but suspect he could have some element of chronic kidney disease Creatinine now down slightly to 1.48, but still unclear what baseline is -Follow BMP in the morning Was given 500 mL's of normal saline in the ER and will continue to encourage p.o. intake (5) COPD (chronic obstructive pulmonary disease): Stable with chronic cough, on 3 L nasal cannula -Continue supplemental O2 from home Continue home inhalers, nebs and HFA as needed (6) Type 2 diabetes mellitus: Is diet controlled at home with some hyperglycemia here hemoglobin A1c here is 6.3% Continue Accu-Cheks before meals and at bedtime and NovoLog sliding scale as needed (7) Sleep apnea: His daughter brought his BiPAP from home-he may use this here (8) Insomnia: Continue home trazodone and melatonin (9) GERD (gastroesophageal reflux disease): No acute issues -Continue home PPI (10) BPH (benign prostatic hyperplasia): Was retaining urine in the ER and straight cath for 450 mL's No evidence of infection Has not needed to be straight catheterized since that time Continue finasteride and Flomax Straight cath as needed every shift for PVR greater than 400 mL's Currently has an external condom catheter in place (11) Anxiety: Stable -Continue home Lorazepam as needed although would caution against this with multiple falls (12) Anemia: Hemoglobin mildly low at 10.5 and is macrocytic B12 and folate levels here are normal Could have an early myelodysplasia which can be followed with CBCs as an outpatient, would not recommend hematologic work-up at this time (13) Urinary retention: As noted above, straight cath as needed (14) 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 Neuropathy precautions, must wear shoes with walking as per daughter. Also has a left foot drop and wears a brace for this B12 levels are normal (19) Left foot drop: As above (20) Skin tear of left upper extremity: Secondary to trauma from fall No evidence of secondary infection on exam Wound care consulted-continue to cover with OPTi foam dressings daily (21) Right knee pain: Likely secondary to arthritis Add Voltaren gel to the right knee as well Seen by orthopedic surgery, no further evaluation needed (22) DVT prophylaxis: SCDs Disposition-continued stay Awaiting rehab placement Case management consultation placed-referrals made to [facility] and [facility], hopeful for discharge tomorrow after authorization approved Admission and Anticipated Discharge Date Admission Date: January 27, 2020 Subjective Patient reports the pain in the left hip is now completely gone. He is now mostly having pain in the right knee. He denies chest pain or shortness of breath. He is eating and drinking. He has an external catheter in his bladder and did not need to be straight catheterized since being in the ER last night. He is agreeable to going to rehab. Review of Systems Review of Systems: All systems reviewed & are unremarkable except as noted in HPI & below Physical Exam Constitutional: WD/WN, vitals as above no acute distress Neck: trachea midline, no thyromegaly Respiratory: normal respiratory effort (With nasal cannula in place); no labored breathing Auscultation: + rhonchi (A few scattered bilateral rhonchi); no crackles and no wheezes Cardiovascular: RRR, no murmur, no edema Chest (Breasts): Chest: normal inspection of chest Gastrointestinal (Abdomen): normal bowel sounds, soft, nontender, no hepatosplenomegaly Musculoskeletal: Extremities: + extremities abnormal to inspection (Right knee with prepatellar bursitis, positive medial joint line tenderness, small joint effusion, range of motion 0-90 degrees, no erythema), no cyanosis and no clubbi ng Hip: hip normal to inspection (No longer with any tenderness palpation over left greater trochanter-significantly improved from yesterday), no skin erythema and no ecchymosis Skin: + wound (Left posterior upper arm, elbow, and forearm with skin tears with minimal oozing of blood, no surrounding erythema, no purulent drainage, covered with dressings) Neurologic: moves all extremities (Except with left foot drop) and awake Psychiatric: A+Ox3, euthymic affect Lymphatic: no lymphedema Results & Data Results & Data ([facility]) Vital Signs (Past 12 Hours) Vital Signs Temp Pulse Resp BP Pulse Ox 01/28/20 15:17 37.0 C 68 19 114/53 L 100 01/28/20 07:34 85 17 88 L 01/28/20 07:26 37.0 C 61 18 103/66 98 Laboratory Results 01/28/20 01/28/20 01/28/20 Range/Units 12:11 08:32 05:26 WBC (4.8-10.8) K/uL RBC (4.7-6.1) M/uL Hgb (14.0-18.0) g/dL Hct (42-52) % MCV (80-100) fL MCH (25-34) pg MCHC (32-36) g/dL RDW Std Deviation (36.4-46.3) fL RDW Coeff of Elissa (11.5-14.5) % Plt Count (130-400) K/uL MPV (7.4-10.4) fL Immature Gran % (Auto) % Neut % (Auto) % Lymph % (Auto) % Meagher % (Auto) % Eos % (Auto) % Baso % (Auto) % Neut # (Auto) (1.4-6.5) K/uL Lymph # (Auto) (1.2-3.4) K/uL Meagher # (Auto) (0.11-0.59) K/uL Eos # (Auto) (0-0.5) K/uL Baso # (Auto) (0-0.2) K/uL Immature Gran # (Auto) (0.00-0.02) K/uL Sodium (136-145) mmol/L Potassium (3.5-5.1) mmol/L Chloride (98-107) mmol/L Carbon Dioxide (21-32) mmol/L Anion Gap (3-11) BUN (7-18) mg/dl Creatinine (0.6-1.4) mg/dl Est Cr Clr Drug Dosing ml/min Est GFR ( Amer) Est GFR (Non-Af Amer) BUN/Creatinine Ratio (10-20) Glucose (70-99) mg/dl POC Glucose 242 H 156 H (70-99) mg/dl Estimat Average Glucose mg/dl Hemoglobin A1c (4.5-5.6) % Calcium (8.5-10.1) mg/dl Vitamin B12 496 (211-911) pg/ml Folate 14.19 (>5.38) ng/ml 01/28/20 01/28/20 01/28/20 Range/Units 05:26 05:26 05:26 WBC 9.60 (4.8-10.8) K/uL RBC 3.17 L (4.7-6.1) M/uL Hgb 10.0 L (14.0-18.0) g/dL Hct 31.8 L (42-52) % MCV 100.3 H (80-100) fL MCH 31.5 (25-34) pg MCHC 31.4 L (32-36) g/dL RDW Std Deviation 54.0 H (36.4-46.3) fL RDW Coeff of Elissa 14.7 H (11.5-14.5) % Plt Count 140 (130-400) K/uL MPV 9.2 (7.4-10.4) fL Immature Gran % (Auto) 0.7 % Neut % (Auto) 77.8 % Lymph % (Auto) 9.7 % Meagher % (Auto) 10.7 % Eos % (Auto) 1.0 % Baso % (Auto) 0.1 % Neut # (Auto) 7.46 H (1.4-6.5) K/uL Lymph # (Auto) 0.93 L (1.2-3.4) K/uL Meagher # (Auto) 1.03 H (0.11-0.59) K/uL Eos # (Auto) 0.10 (0-0.5) K/uL Baso # (Auto) 0.01 (0-0.2) K/uL Immature Gran # (Auto) 0.07 H (0.00-0.02) K/uL Sodium 141 (136-145) mmol/L Potassium 4.1 (3.5-5.1) mmol/L Chloride 105 (98-107) mmol/L Carbon Dioxide 30 (21-32) mmol/L Anion Gap 6.0 (3-11) BUN 39 H (7-18) mg/dl Creatinine 1.48 H (0.6-1.4) mg/dl Est Cr Clr Drug Dosing 39.3 ml/min Est GFR ( Amer) 49.0 Est GFR (Non-Af Amer) 42.2 BUN/Creatinine Ratio 26.5 H (10-20) Glucose 120 H (70-99) mg/dl POC Glucose (70-99) mg/dl Estimat Average Glucose 134 mg/dl Hemoglobin A1c 6.3 H (4.5-5.6) % Calcium 8.0 L (8.5-10.1) mg/dl Vitamin B12 (211-911) pg/ml Folate (>5.38) ng/ml 01/27/20 Range/Units 21:04 WBC (4.8-10.8) K/uL RBC (4.7-6.1) M/uL Hgb (14.0-18.0) g/dL Hct (42-52) % MCV (80-100) fL MCH (25-34) pg MCHC (32-36) g/dL RDW Std Deviation (36.4-46.3) fL RDW Coeff of Elissa (11.5-14.5) % Plt Count (130-400) K/uL MPV (7.4-10.4) fL Immature Gran % (Auto) % Neut % (Auto) % Lymph % (Auto) % Meagher % (Auto) % Eos % (Auto) % Baso % (Auto) % Neut # (Auto) (1.4-6.5) K/uL Lymph # (Auto) (1.2-3.4) K/uL Meagher # (Auto) (0.11-0.59) K/uL Eos # (Auto) (0-0.5) K/uL Baso # (Auto) (0-0.2) K/uL Immature Gran # (Auto) (0.00-0.02) K/uL Sodium (136-145) mmol/L Potassium (3.5-5.1) mmol/L Chloride (98-107) mmol/L Carbon Dioxide (21-32) mmol/L Anion Gap (3-11) BUN (7-18) mg/dl Creatinine (0.6-1.4) mg/dl Est Cr Clr Drug Dosing ml/min Est GFR ( Amer) Est GFR (Non-Af Amer) BUN/Creatinine Ratio (10-20) Glucose (70-99) mg/dl POC Glucose 154 H (70-99) mg/dl Estimat Average Glucose mg/dl Hemoglobin A1c (4.5-5.6) % Calcium (8.5-10.1) mg/dl Vitamin B12 (211-911) pg/ml Folate (>5.38) ng/ml PG Care Time/CCT Total # of Minutes Spent Total Time Spent with Patient: Total time spent is greater than 50% in coordination of care (as documented) at patient's floor/unit and/or counseling patient: Coding Level of Care Code 67012 Subseq Hosp Care Lvl 2 Diagnoses Fall W19.XXXA Generalized weakness R53.1 Left hip pain M25.552 Elevated serum creatinine R79.89 COPD (chronic obstructive pulmonary disease) J44.9 Type 2 diabetes mellitus E11.9 Sleep apnea G47.30 Insomnia G47.00 GERD (gastroesophageal reflux disease) K21.9 BPH (benign prostatic hyperplasia) N40.0 Anxiety F41.9 Anemia D64.9 Urinary retention R33.9 Tracheomalacia J39.8 CVA (cerebral vascular accident) I63.9 Restless leg syndrome G25.81 Chronic respiratory failure with hypoxia J96.11 Peripheral neuropathy G62.9 Left foot drop M21.372 Skin tear of left upper extremity S41.112A Right knee pain M25.561 DVT prophylaxis Z29.9
[2020-01-28] MEDS: TRAZODONE HCL 100 MG TAB PO SCH (20:44)
[2020-01-28] MEDS ORDERED: ROPINIROLE HCL 1 MG TABLET PO SCH (21:00)
[2020-01-29] MEDS: ALBUTEROL 0.083% NEBU SOLN 3 ML VIAL INH SCH ×3 (00:47→15:12)
[2020-01-29 06:06] LABS: BUN Creatinine Ratio 24.2 (10-20); Calcium 7.9 mg/dl (8.5-10.1); Creatinine Clr Calc Pharmacy 33.4 ml/min; Est GFR (African American) 40.3; Est GFR (Non-African American) 34.7; Potassium 4.2 mmol/L (3.5-5.1)
[2020-01-29] MEDS: FLUTICASONE/VILANTEROL 100/25MCG 14 PUFFS/INHALER INH SCH (10:27)
[2020-01-29] MEDS: DICLOFENAC SOD 1% GEL 100 GM TUBE EXT SCH ×3 (10:27→18:13)
[2020-01-29] MEDS: TAMSULOSIN HCL 0.4 MG CAP PO SCH (10:28)
[2020-01-29] MEDS: ASPIRIN 81 MG ECTAB PO SCH (10:28)
[2020-01-29] MEDS: LORATADINE 10 MG TAB PO SCH (10:28)
[2020-01-29] MEDS: FERROUS GLUCONATE 324 MG TAB PO SCH ×2 (10:29→18:12)
[2020-01-29] MEDS: PANTOprazole 40 MG TAB PO SCH (10:29)
[2020-01-29] MEDS: ASCORBIC ACID 500 MG TAB PO SCH (10:29)
[2020-01-29] MEDS: FINASTERIDE 5 MG TAB PO SCH (10:29)
[2020-01-29] MEDS: INSULIN ASPART 100 UNITS/ML 3 ML PEN SC SCH ×3 (10:34→18:14)
[2020-01-29] MEDS: SODIUM CHLORIDE 0.9% 500 ML IV SCH ×2 (10:40→14:48)
[2020-01-29 13:24] LABS: Calcium 7.6 mg/dl (8.5-10.1); Creatinine Clr Calc Pharmacy 33.4 ml/min; Est GFR (African American) 40.3; Est GFR (Non-African American) 34.7; Potassium 4.1 mmol/L (3.5-5.1)
[2020-01-29] MEDS: ROPINIROLE HCL 1 MG TABLET PO SCH (13:29)
[2020-01-29 15:31] VITALS: PULSE 63; TEMP 98.4; O2SAT 96
--- NOTE | 2020-01-29 17:34 | Discharge Summary ---
Date of Service January 29, 2020 Admission HPI Per Admitting Provider This patient is a very pleasant 84-year-old male with a history of COPD with chronic respiratory failure with hypoxia on 3 L nasal cannula, MARYLIN on BiPAP, DM 2, tracheomalacia with history of tracheal stent, RLS, anxiety disorder, insomnia, GERD, CVA with residual left-sided weakness, BPH, and anemia who presents to the ER via ambulance with progressively worsening generalized weakness for the last 3 days. His daughter at the bedside whom he lives with reports that he had a fall 3 days ago and sustained 3 skin tears to the left upper extremity. He reports he did not lose consciousness. His son-in-law witnessed the event and noted that the patient tried to take a few steps backward and lost his balance and fell on his left side. The patient reports he had a very mild headache initially but that has since resolved. His daughter reports that the patient has had at least 25 falls in the last 9 months. He has been living with her for the last 6 years. He is able to ambulate with a walker and close contact guard supervision. Since that fall, she reports he progressively became more immobile to the point where she could not even get him out of bed last night. He continued to eat food but his oral intake of fluids has gone down. He denies nausea or vomiting, no abdominal pain, no diarrhea or constipation. He had a large bowel movement on Saturday and a small bowel movement on Saturday. He has not had any fevers or dizziness, no vision changes, no chest pain or shortness of breath. He has a chronic cough which is unchanged. He mostly complains of left hip pain at the time I saw him, but no pains anywhere else in the joints. His daughter has not noticed any mental status changes. Daughter also reports that her just had surgery and will not be able to help her lift the patient for the next 6 weeks. The patient herself also has lifting restrictions and is not able to get him up out of bed due to his severe weakness. She is not able to care for him at home at this time and is requesting rehab placement. In the ER, he had a CBC which showed a mild macrocytic anemia with a hemoglobin of 10.5, mild thrombocytopenia with platelets 133, and creatinine was elevated at 1.58 with no baseline to compare to. His troponin was negative, LFTs and CK were normal, TSH was normal at 2.39, electrolytes otherwise normal. Urinalysis was normal. He had pelvis and left femur x-rays which were negative for fractures, and a head CT which showed no acute abnormality. A chest x-ray showed cardiomegaly and emphysema, no CHF but with small pleural effusions. Principal Diagnosis Fall, generalized weakness, left hip pain, right knee pain Discharge Exam Constitutional WD/WN, vitals as above no acute distress ENMT external ear and nose normal, oropharynx normal Neck trachea midline, no thyromegaly Respiratory normal respiratory effort (With nasal cannula in place); no labored breathing Auscultation: + rhonchi (A few scattered bilateral rhonchi); no crackles and no wheezes Cardiovascular RRR, no murmur, no edema Vessels: dorsalis pedis pulses present Chest (Breasts) Chest: normal inspection of chest Gastrointestinal (Abdomen) normal bowel sounds, soft, nontender, no hepatosplenomegaly Musculoskeletal Extremities: + extremities abnormal to inspection (Right knee with prepatellar bursitis, positive medial joint line tenderness, small joint effusion, range of motion 0-90 degrees, no erythema), no cyanosis and no clubbing Hip: hip normal to inspection (No longer with any tenderness palpation over left greater trochanter-significantly improved from yesterday), no skin erythema and no ecchymosis Skin no rashes, warm and dry + wound (Left posterior upper arm, elbow, and forearm with skin tears with minimal oozing of blood, no surrounding erythema, no purulent drainage, covered with dressings) Neurologic moves all extremities (Except with left foot drop) and awake Psychiatric A+Ox3, euthymic affect Genitourinary With external condom catheter in place draining clear yellow urine that does have a strong odor but does not appear cloudy Lymphatic no lymphedema Discharge Data Allergies Allergy/AdvReac Type Severity Reaction Status Date / Time Cipro Allergy Intermediate unknown Unverified 08/22/16 05:39 ciprofloxacin Allergy Intermediate unknown Unverified 01/27/20 14:35 nitrofurantoin Allergy Intermediate unknown Unverified 01/27/20 14:35 Consultations 01/27/20 14:21 ED Decision to Admit Stat 01/27/20 20:51 Consult Case Management - Discharge Planning Routine Consult Orthopedic Surgery Routine Ordered Studies 01/27/20 13:09 CT head/brain wo con Stat Left femur x-ray Pelvis x-ray Chest x-ray Hospital Course (1) Fall: With a history of 25 falls since 04/2019 as per daughter. All mechanical and related to left foot drop, peripheral neuropathy, and attempts to walk backwards as per his daughter. He had no prodromal symptoms, no chest pain or palpitations, no loss of consciousness. ECG without ischemia, troponin is negative, TSH is normal. Blood pressures are normal. Sustained a fall 3 days prior to admission and now with left hip pain and right knee pain causing considerable immobility X-rays negative for fracture in the pelvis and left femur No significant metabolic reason for generalized weakness with exception of mild elevated creatinine and mild dehydration Needs PT/OT and rehab placement Left hip pain is now improved as below Now with right knee pain which is somewhat improved Seen by orthopedics and no further evaluation needed-likely contusion from fall. Awaiting rehab placement Continue Voltaren gel, icing 3 times daily to the right knee, can weight-bear as tolerated (2) Generalized weakness: Likely secondary to left hip pain and fall, perhaps some mild dehydration with mildly elevated BUN and creatinine from poor p.o. intake -Hydrated gently with IV fluids- encouraged continued p.o. intake -PT/OT consults and will need rehab placement No other signs or symptoms of infection Somewhat improved today (3) Left hip pain: With exquisite tenderness to palpation over left greater trochanter upon admission, possibly traumatic bursitis secondary to fall X-rays of the left femur and pelvis are negative for fracture Consult orthopedic surgery for further evaluation to see if warrants further imaging and if there is a need for steroid injection After using Voltaren gel, patient's left hip pain is now completely resolved Appreciate orthopedic surgery consultation if no further evaluation needed, rest ice, anti-inflammatories -Continue to apply Voltaren gel 4 times daily -Can ice 3 times daily if needed Tylenol as needed for pain PT/OT appreciated (4) Elevated serum creatinine: Creatinine elevated at 1.5 on admission with mildly elevated BUN as well, did have poor p.o. intake with fluids last few days as per daughter Unclear what baseline creatinine is but suspect he could have some element of chronic kidney disease Creatinine now up slightly to 1.7 on the day of discharge and was given another 1 L of normal saline -Follow BMP in 2 to 3 [facility] and encouraged continued p.o. intake of fluids He is not retaining urine as evidenced by normal post void residual bladder scans He was making excellent amount of urine (5) COPD (chronic obstructive pulmonary disease): Stable with chronic cough, on 3 L nasal cannula -Continue supplemental O2 from home Continue home inhalers, nebs and HFA as needed (6) Type 2 diabetes mellitus: Is diet controlled at home with some hyperglycemia here hemoglobin A1c here is 6.3% Continue Accu-Cheks before meals and at bedtime and NovoLog sliding scale if needed (7) Sleep apnea: His daughter brought his BiPAP from home-he may use this at rehab (8) Insomnia: Continue home trazodone and melatonin (9) GERD (gastroesophageal reflux disease): No acute issues -Continue home PPI (10) BPH (benign prostatic hyperplasia): Was retaining urine in the ER and straight cath for 450 mL's No evidence of infection Has not needed to be straight catheterized since that time and post void residual bladder scans have been normal since then Continue finasteride and Flomax (11) Anxiety: Stable -Continue home Lorazepam as needed although would caution against this with multiple falls (12) Anemia: Hemoglobin mildly low at 10.5 and is macrocytic B12 and folate levels here are normal Could have an early myelodysplasia which can be followed with CBCs as an outpatient, would not recommend hematologic work-up at this time (13) Urinary retention: As noted above, straight cath as needed (14) 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 Neuropathy precautions, must wear shoes with walking as per daughter. Also has a left foot drop and wears a brace for this B12 levels are normal (19) Left foot drop: As above (20) Skin tear of left upper extremity: Secondary to trauma from fall No evidence of secondary infection on exam Wound care consulted-continue to cover with OPTi foam dressings daily (21) Right knee pain: Likely secondary to arthritis and contusion from fall Add Voltaren gel to the right knee as well Seen by orthopedic surgery, no further evaluation needed (22) DVT prophylaxis: SCDs Disposition-stable for discharge to rehab at [facility] Total Time Total Time Spent Total Time Spent (In Minutes): 35 min Total Time Includes: Examination of the Patient, Discharge Planning and Medication Reconciliation Discharge Plan Discharge Items Patient Disposition: Transfer Senior Living Fac Reason For Visit: LEFT HIP PAIN,GENERALIZED WEAKNESS,FALL Discharge Diagnosis: Fall, generalized weakness, right knee pain, left hip pain Condition on Discharge: Fair Activity: As commented below Lifting: None Bathing: No limitations Exercise/Sports: Gradually increase as tolerated Exercise Comment: With PT/OT Weightbearing: Full weightbearing Weightbearing Comment: As tolerated Non-emergency contact: Primary Care Provider Call non-emergency contact if: you have any medication questions, your symptoms worsen, your pain is not controlled, your pain is worsening, your pain is unusual for you and your pain is concerning for you Follow-up/Referrals: Ernie Sanchez, [Primary Care Provider] - (Follow-up within 1 to 2 weeks after discharge from rehab) Diet: Carb Consistent or DM2 and Heart Healthy Addtl Attending Provider Instructions: You were admitted after sustaining a mechanical fall with skin tears to the left upper extremity and with left hip pain and right knee pain. You had no fractures and were seen by orthopedic surgery who recommended rest, ice. Please continue to use Voltaren gel to the left hip and right knee 4 times a day as an anti-inflammatory treatment for pain. You did require straight catheterization of the bladder 1 time, but after that you were no longer retaining your urine. Your kidney function was slightly decreased from your normal baseline creatinine of 1.5. You were given IV fluids. Please check a basic metabolic panel for renal function in 2 to 3 days and encouraged continued oral intake of fluids. Your Lasix was discontinued at this time due to being dehydrated, but may need to be restarted again in the future if you become overloaded with fluid. Please continue daily dressing changes to the wounds of the left upper extremity with OPTi foam. Please continue with your usual 3 L of oxygen via nasal cannula and use your home BiPAP at nighttime. Pending Studies at Discharge: No Stand-Alone Forms: My [facility] Skilled Items Patient informed of condition?: Yes DNR: Yes Discharge Level of Care: Skilled Communicable Disease: No Discharge Prognosis: Stable Lines: None Urinary Catheter: No Medications and DC Order Prescriptions: New acetaminophen 325 mg Tablet 1,000 mg PO Q8 Qty: 60 RF: 0 diclofenac sodium [Voltaren] 1 % Gel 2 g EXT QID Qty: 100 RF: 0 Continued albuterol sulfate 2.5 mg/0.5 mL solution for nebulization 2.5 mg inhalation Q6H RF: 0 aspirin 81 mg tablet,delayed release (DR/EC) 81 mg PO DAILY RF: 0 loratadine [Claritin] 10 mg tablet 10 mg PO DAILY RF: 0 finasteride 5 mg tablet 5 mg PO DAILY RF: 0 melatonin 5 mg capsule 5 mg PO DAILY PRN (Reason: Sleep) RF: 0 omeprazole 20 mg capsule,delayed release(DR/EC) 20 mg PO DAILY RF: 0 (DME) Oxygen Home Liters Per Minute See Rx Instructions .ROUTE .MEDSUPPLY Qty: 1 RF: 0 polyethylene glycol 3350 17 gram/dose powder 17 g PO DAILY PRN (Reason: Constipation) RF: 0 albuterol sulfate [Proventil HFA] 90 mcg/actuation HFA aerosol inhaler 2 puff inhalation Q6H PRN (Reason: Shortness Of Breath) RF: 0 budesonide-formoterol [Symbicort] 160-4.5 mcg/actuation HFA aerosol inhaler 2 puff inhalation BID RF: 0 tamsulosin 0.4 mg capsule 0.4 mg PO DAILY RF: 0 trazodone 100 mg tablet 100 mg PO HS RF: 0 hydrocortisone 0.5 % Cream 1 applic TOPICAL BID PRN (Reason: Dermatitis) RF: 0 ropinirole 1 mg Tablet 1 mg PO UD RF: 0 ascorbic acid (vitamin C) 500 mg Tablet 500 mg PO BID RF: 0 ferrous gluconate 324 mg (36 mg iron) Tablet 324 mg PO BID RF: 0 lorazepam [Ativan] 1 mg Tablet 1 mg PO BID PRN (Reason: Anxiety) Qty: 5 RF: 0 Discontinued furosemide 40 mg tablet 40 mg PO DAILY RF: 0 potassium chloride [Klor-Con M20] 20 mEq tablet,ER particles/crystals 20 meq PO DAILY RF: 0 Discharge Orders: Discharge Order (Routine); Ordered 01/29/20 Ordered By: Lulu France/Other Patient Handouts: Managing Type 2 Diabetes Admission Data Admit Date/Time: 01/27/20 17:22 Attending Provider: Lulu Oneal Admit Provider: Lulu Oneal Primary Care Provider: Ernie Sanchez Other Providers: Ihsan Cadena ; Maverick Dos Santos ; [facility] Coding Level of Care Code 47827 OBS Care - Discharge Diagnoses Fall W19.XXXA Generalized weakness R53.1 Left hip pain M25.552 Elevated serum creatinine R79.89 COPD (chronic obstructive pulmonary disease) J44.9 Type 2 diabetes mellitus E11.9 Sleep apnea G47.30 Insomnia G47.00 GERD (gastroesophageal reflux disease) K21.9 BPH (benign prostatic hyperplasia) N40.0 Anxiety F41.9 Anemia D64.9 Urinary retention R33.9 Tracheomalacia J39.8 CVA (cerebral vascular accident) I63.9 Restless leg syndrome G25.81 Chronic respiratory failure with hypoxia J96.11 Peripheral neuropathy G62.9 Left foot drop M21.372 Skin tear of left upper extremity S41.112A Right knee pain M25.561 DVT prophylaxis Z29.9
[2020-01-29 18:41] VITALS: BP 114/53
--- NOTE | 2020-02-01 00:57 | Emergency Department Note ---
History of Present Illness General Chief complaint: Dizziness Stated complaint: dizzy,weak s/p fall 2 days ago Time Seen by Provider: 01/27/20 12:52 Source: patient, EMS and RN notes reviewed Mode of arrival: EMS Limitations: no limitations History of Present Illness Provider complaint: Weakness, fall Onset (ago): day(s) Location: head Radiation: back Severity: moderate Pain Consistency: + intermittent and + colicky Maximum Pain Intensity: 8 Current Pain Intensity: 8 Quality: + aching Relieved By: + immobilization Exacerbated By: + movement Associated symptoms: + weakness Treatments prior to arrival: none This is an 84-year-old male who presents the emergency department complaining of generalized weakness. The patient fell approximately 2 days ago and per the family has been getting increasingly weak. He is complaining of hip pain ever since a fall approximately 3 days ago. Per the patient's daughter he has fallen 25 times over the past 3 months. The patient reports hip pain gets worse when he stands on it however gets better when he rests. Home Medications Home Medications Medication Instructions Recorded Confirmed Type Oxygen Home #1 ea 01/06/20 01/06/20 History albuterol sulfate 2.5 mg/0.5 mL 2.5 mg INHALATION Q6H 01/06/20 01/27/20 History solution for nebulization albuterol sulfate 90 mcg/actuation 2 puff INHALATION Q6H PRN 01/06/20 01/27/20 History aerosol inhaler aspirin 81 mg tablet,delayed 81 mg PO DAILY 01/06/20 01/27/20 History release budesonide-formoterol HFA 160 2 puff INHALATION BID 01/06/20 01/27/20 History mcg-4.5 mcg/actuation aerosol inhaler finasteride 5 mg tablet 5 mg PO DAILY 01/06/20 01/27/20 History loratadine 10 mg tablet 10 mg PO DAILY 01/06/20 01/27/20 History melatonin 5 mg capsule 5 mg PO DAILY PRN cap 01/06/20 01/27/20 History omeprazole 20 mg capsule,delayed 20 mg PO DAILY 01/06/20 01/27/20 History release polyethylene glycol 3350 17 17 g PO DAILY PRN 01/06/20 01/27/20 History gram/dose oral powder tamsulosin 0.4 mg capsule 0.4 mg PO DAILY 01/06/20 01/27/20 History trazodone 100 mg tablet 100 mg PO HS 01/06/20 01/27/20 History ascorbic acid (vitamin C) 500 mg PO BID 01/27/20 01/27/20 History ferrous gluconate 324 mg PO BID 01/27/20 01/27/20 History hydrocortisone 1 applic TOPICAL BID PRN 01/27/20 01/27/20 History ropinirole 1 mg PO UD 01/27/20 01/27/20 History acetaminophen 1,000 mg PO Q8 #60 tab 01/29/20 Rx diclofenac sodium [Voltaren] 2 g EXT QID #100 g 01/29/20 Rx lorazepam [Ativan] 1 mg PO BID PRN #5 tab 01/29/20 Rx Allergies Allergy/AdvReac Type Severity Reaction Status Date / Time Cipro Allergy Intermediate unknown Unverified 08/22/16 05:39 ciprofloxacin Allergy Intermediate unknown Unverified 01/27/20 14:35 nitrofurantoin Allergy Intermediate unknown Unverified 01/27/20 14:35 Past Med/Surg History Medical History (Updated 02/01/20 @ 01:13 by Mahamed Roberson MD) Anemia Anxiety BPH (benign prostatic hyperplasia) Bronchiectasis Chronic respiratory failure with hypoxia Collapsed lung COPD (chronic obstructive pulmonary disease) CVA (cerebral vascular accident) CVA (cerebral vascular accident) Diabetes mellitus, type 2 Fall GERD (gastroesophageal reflux disease) Insomnia Left foot drop Peripheral neuropathy Pneumonia RLS (restless legs syndrome) Tracheomalacia Urinary retention Surgical History H/O cervical spine surgery H/O right inguinal hernia repair History of carpal tunnel surgery of right wrist Family History (Updated 01/27/20 @ 21:31 by Lulu Oneal MD) Other Family history non-contributory Social History Smoking Status: Former smoker Tobacco Type: Cigarettes Age Quit Using Tobacco: 74; Hx Alcohol Use: No Hx Substance Use: No Preferred Language: Afghan Communication Ability: Effective Prison Officer Required: No Beliefs That Will Affect Care: None marital status: / Current Living Situation: Family Current Living Situation Comment: son and daughter in law Feels Safe at Home: Yes Course Administered Medications Discontinued Medications Acetaminophen (Acetaminophen 325 Mg Tab) 650 mg PO Q4H PRN PRN Reason: pain/fever Stop: 02/26/20 20:50 Last Admin: 01/28/20 09:12 Dose: 650 mg Documented by: [id number] Albuterol (Albuterol 0.083% Nebu Soln 3 Ml Vial) 2.5 mg INH Q6R [facility] Stop: 02/27/20 00:59 Last Admin: 01/29/20 15:12 Dose: 2.5 mg Documented by: [id number] Admin: 01/29/20 06:54 Dose: 2.5 mg Documented by: [id number] Admin: 01/29/20 00:47 Dose: 2.5 mg Documented by: [id number] Admin: 01/28/20 19:52 Dose: 2.5 mg Documented by: [id number] Admin: 01/28/20 13:41 Dose: Not Given Documented by: [id number] Admin: 01/28/20 07:32 Dose: 2.5 mg Documented by: [id number] Admin: 01/28/20 00:59 Dose: 2.5 mg Documented by: [id number] Ascorbic Acid (Ascorbic Acid 500 Mg Tab) 500 mg PO BID [facility] Stop: 02/26/20 20:59 Last Admin: 01/29/20 10:29 Dose: 500 mg Documented by: [id number] Admin: 01/28/20 20:42 Dose: 500 mg Documented by: [id number] Admin: 01/28/20 08:52 Dose: 500 mg Documented by: [id number] Admin: 01/27/20 22:02 Dose: 500 mg Documented by: [id number] Aspirin (Aspirin 81 Mg Ectab) 81 mg PO DAILY [facility] Stop: 02/27/20 08:59 Last Admin: 01/29/20 10:28 Dose: 81 mg Documented by: [id number] Admin: 01/28/20 08:52 Dose: 81 mg Documented by: [id number] Diclofenac Sodium (Diclofenac Sod 1% Gel 100 Gm Tube) 2 gm EXT QID [facility] Stop: 02/26/20 20:59 Last Admin: 01/28/20 08:52 Dose: 2 gm Documented by: [id number] Admin: 01/27/20 22:02 Dose: 2 gm Documented by: [id number] Diclofenac Sodium (Diclofenac Sod 1% Gel 100 Gm Tube) 2 gm EXT QID [facility] Stop: 02/27/20 10:59 Last Admin: 01/29/20 18:13 Dose: 2 gm Documented by: [id number] Admin: 01/29/20 13:28 Dose: 2 gm Documented by: [id number] Admin: 01/29/20 10:27 Dose: 2 gm Documented by: [id number] Admin: 01/28/20 20:43 Dose: 2 gm Documented by: [id number] Admin: 01/28/20 18:12 Dose: 2 gm Documented by: [id number] Admin: 01/28/20 13:39 Dose: 2 gm Documented by: [id number] Ferrous Gluconate (Ferrous Gluconate 324 Mg Tab) 324 mg PO BID17 [facility] Stop: 02/27/20 08:59 Last Admin: 01/29/20 18:12 Dose: 324 mg Documented by: [id number] Admin: 01/29/20 10:29 Dose: 324 mg Documented by: [id number] Admin: 01/28/20 18:13 Dose: 324 mg Documented by: [id number] Admin: 01/28/20 08:52 Dose: 324 mg Documented by: [id number] Finasteride (Finasteride 5 Mg Tab) 5 mg PO DAILY [facility] Stop: 02/27/20 08:59 Last Admin: 01/29/20 10:29 Dose: 5 mg Documented by: [id number] Admin: 01/28/20 08:52 Dose: 5 mg Documented by: [id number] Fluticasone/Vilanterol (Fluticasone/Vilanterol 100/25mcg 14 Puffs/Inhaler) 1 puffs INH DAILY [facility] Stop: 02/27/20 08:59 Last Admin: 01/29/20 10:27 Dose: 1 puffs Documented by: [id number] Admin: 01/28/20 08:50 Dose: 1 puffs Documented by: [id number] Sodium Chloride (Nss) 500 mls @ 999 mls/hr IV .Q31M [facility] Stop: 01/27/20 13:45 Last Infusion: 01/27/20 13:55 Dose: 0 mls/hr Documented by: [id number] Admin: 01/27/20 13:24 Dose: 999 mls/hr Documented by: [id number] Sodium Chloride (Nss) 500 mls @ 125 mls/hr IV .Q4H [facility] Stop: 10/11/20 09:59 Last Infusion: 01/29/20 18:22 Dose: 0 mls/hr Documented by: [id number] Admin: 01/29/20 14:48 Dose: 125 mls/hr Documented by: [id number] Infusion: 01/29/20 14:40 Dose: 0 mls/hr Documented by: [id number] Admin: 01/29/20 10:40 Dose: 125 mls/hr Documented by: [id number] Insulin Aspart (Insulin Aspart 100 Units/Ml 3 Ml Pen) 0 units SC ACHS [facility] Stop: 02/26/20 20:59 Last Admin: 01/29/20 18:14 Dose: 1 units Documented by: [id number] Cosigned by: [id number] Admin: 01/29/20 13:24 Dose: 3 units Documented by: [id number] Cosigned by: [id number] Admin: 01/29/20 10:34 Dose: 1 units Documented by: [id number] Cosigned by: [id number] Admin: 01/28/20 20:51 Dose: 4 units Documented by: [id number] Cosigned by: [id number] Admin: 01/28/20 18:14 Dose: 1 units Documented by: [id number] Cosigned by: [id number] Admin: 01/28/20 13:39 Dose: 3 units Documented by: [id number] Cosigned by: [id number] Admin: 01/28/20 09:04 Dose: 1 units Documented by: [id number] Cosigned by: [id number] Admin: 01/27/20 22:03 Dose: 1 units Documented by: [id number] Cosigned by: [id number] Loratadine (Loratadine 10 Mg Tab) 10 mg PO DAILY [facility] Stop: 02/27/20 08:59 Last Admin: 01/29/20 10:28 Dose: 10 mg Documented by: [id number] Admin: 01/28/20 08:53 Dose: 10 mg Documented by: [id number] Pantoprazole Sodium (Pantoprazole 40 Mg Tab) 40 mg PO DAILY [facility] Stop: 02/27/20 08:59 Last Admin: 01/29/20 10:29 Dose: 40 mg Documented by: [id number] Admin: 01/28/20 08:52 Dose: 40 mg Documented by: [id number] Ropinirole HCl (Ropinirole Hcl 1 Mg Tablet) 1 mg PO 1400 [facility] Stop: 10/10/20 13:59 Last Admin: 01/29/20 13:29 Dose: 1 mg Documented by: [id number] Admin: 01/28/20 15:40 Dose: 1 mg Documented by: [id number] Ropinirole HCl (Ropinirole Hcl 1 Mg Tablet) 2 mg PO HS [facility] Stop: 02/27/20 20:59 Last Admin: 01/28/20 20:40 Dose: 2 mg Documented by: [id number] Ropinirole HCl (Ropinirole Hcl 1 Mg Tablet) 2 mg PO ONE ONE Stop: 01/27/20 22:16 Last Admin: 01/27/20 22:59 Dose: 2 mg Documented by: [id number] Tamsulosin HCl (Tamsulosin Hcl 0.4 Mg Cap) 0.4 mg PO DAILY [facility] Stop: 02/27/20 08:59 Last Admin: 01/29/20 10:28 Dose: 0.4 mg Documented by: [id number] Admin: 01/28/20 08:52 Dose: 0.4 mg Documented by: [id number] Trazodone HCl (Trazodone Hcl 100 Mg Tab) 100 mg PO HS [facility] Stop: 02/26/20 20:59 Last Admin: 01/28/20 20:44 Dose: 100 mg Documented by: [id number] Admin: 01/27/20 22:02 Dose: 100 mg Documented by: [id number] Medical Decision Making Differential Diagnosis Fracture, subluxation, dislocation, contusion, ligamentous injury, neurovascular, compartment syndrome, rhabdomyolysis, as well as other pathologies. Medical Records Attestation: I reviewed the patient's medical records. Home Medications Current Medication List: was personally reviewed by me Laboratory Data Attestation: I reviewed the patient's lab results. Result diagrams: 01/28/20 05:26 01/29/20 12:44 Lab Results 01/27/20 01/27/20 01/27/20 Range/Units 12:44 13:18 13:18 WBC 9.14 (4.8-10.8) K/uL RBC 3.38 L (4.7-6.1) M/uL Hgb 10.5 L (14.0-18.0) g/dL Hct 33.7 L (42-52) % MCV 99.7 (80-100) fL MCH 31.1 (25-34) pg MCHC 31.2 L (32-36) g/dL RDW Std Deviation 53.2 H (36.4-46.3) fL RDW Coeff of Elissa 14.6 H (11.5-14.5) % Plt Count 133 (130-400) K/uL MPV 9.0 (7.4-10.4) fL Immature Gran % (Auto) 0.7 % Neut % (Auto) 86.1 % Lymph % (Auto) 5.5 % Fillmore % (Auto) 7.5 % Eos % (Auto) 0.1 % Baso % (Auto) 0.1 % Neut # (Auto) 7.87 H (1.4-6.5) K/uL Lymph # (Auto) 0.50 L (1.2-3.4) K/uL Fillmore # (Auto) 0.69 H (0.11-0.59) K/uL Eos # (Auto) 0.01 (0-0.5) K/uL Baso # (Auto) 0.01 (0-0.2) K/uL Immature Gran # (Auto) 0.06 H (0.00-0.02) K/uL Sodium 141 (136-145) mmol/L Potassium 4.4 (3.5-5.1) mmol/L Chloride 105 (98-107) mmol/L Carbon Dioxide 29 (21-32) mmol/L Anion Gap 7.0 (3-11) BUN 38 H (7-18) mg/dl Creatinine 1.58 H (0.6-1.4) mg/dl Est Cr Clr Drug Dosing 36.8 ml/min Est GFR ( Amer) 45.2 Est GFR (Non-Af Amer) 39.0 BUN/Creatinine Ratio 24.3 H (10-20) Glucose 170 H (70-99) mg/dl Calcium 8.7 (8.5-10.1) mg/dl Total Bilirubin 0.7 (0.2-1) mg/dl AST 23 (15-37) U/L ALT 27 (12-78) U/L Alkaline Phosphatase 107 (45-117) U/L Total Creatine Kinase 246 (39-308) U/L Troponin I < 0.015 (0-0.045) ng/ml Total Protein 6.7 (6.4-8.2) gm/dl Albumin 3.7 (3.4-5.0) gm/dl Globulin 3.0 (2.5-4.0) gm/dl Albumin/Globulin Ratio 1.2 (0.9-2) TSH 2.390 (0.300-4.500) uIu/ml Urine Color Yellow Urine Appearance Clear (Clear) Urine pH 6.0 (4.5-7.5) Ur Specific Holstein 1.015 (1.000-1.030) Urine Protein Negative (Negative) Urine Glucose (UA) Negative (Negative) Urine Ketones Negative (Negative) Urine Blood Negative (Negative) Urine Nitrite Negative (Negative) Urine Bilirubin Negative (Negative) Urine Urobilinogen Negative (Negative) Ur Leukocyte Esterase Negative (Negative) Imaging Data Radiologist's Impression: [place], [place] [phone] XRay Report Patient: DIMPLE PARISI Date: 01/27/20 MR#: [id number]: [address] Acct ID:[id number]: [address] [facility] Zip[facility] [place] [address] Age: 84Location: ED Sex: MRoom/Bed: Att Phy:Diagnosis: DIZZINESS Amaya Phy: Ernie Sanchez, DOService Date: 01/27/20 Fam Phy:Interpreting Phy: Bucky Lugo MD Admit Phy: Ordering Phy: Mahamed Roberson MD cc: ~ SINGLE VIEW CHEST CLINICAL HISTORY: Generalized weakness. FINDINGS: 2 AP, portable, upright chest radiographs are compared to study dated 08/22/2016 and correlated with chest CT dated 01/14/2017. The examination is degraded by portable technique and apical lordotic positioning. The heart is enlarged. The pulmonary vasculature is noncongested. Emphysema and chronic interstitial thickening is similar to previous. There are small pleural effusions with bibasilar atelectasis. No pneumothorax is seen. The skeletal structures are osteopenic. The bony thorax is grossly intact. Degenerative change is noted in the shoulders. IMPRESSION: 1. Cardiomegaly and emphysema without radiographic evidence of congestive failure. 2. Small pleural effusions. ACT 112: Negative or not required by law. Electronically signed by: Bucky Lugo M.D. 01/27/2020 1:45 PM Dictated: 01/27/20 1343 Transcribed: 01/27/20 1343 [facility], [place] [phone] CT Scan Report Patient: DIMPLE PARISI Date: 01/27/20 MR#: [id number]: [address] Acct ID:[id number]: [address] [facility] Zip: [place] [address] Age: 84Location: ED Sex: MRoom/Bed: Att Phy:Diagnosis: DIZZINESS Amaya Phy: Ernie Sanchez, DOService Date: 01/27/20 Fam Phy:Interpreting Phy: Charan Ruiz Admit Phy: Ordering Phy: Mahamed Roberson MD cc: ~ CT head/brain wo con CLINICAL HISTORY: 84 years-old Male with Pt c/o fall, weakness. Acute head injury status post fall with weakness TECHNIQUE: Multiple axial CT images of the head were obtained without contrast. A dose lowering technique was utilized adhering to the principles of ALARA. CT DOSE: 614.27 mGy.cm COMPARISON: None. FINDINGS: Mildly motion degraded exam. Age-related involutional changes with ex vacuo catalina triculomegaly. Patchy white matter hypodensities suggest chronic microvascular ischemic disease. Cerebral vascular calcifications. No acute intracranial hemorrhage, midline shift, intracranial mass, hydrocephalus, territorial ischemia or abnormal extra-axial collection. The calvarium is intact. The paranasal sinuses, mastoid air cells, and middle ear cavities are clear. IMPRESSION: No acute intracranial abnormality. ACT 112: Negative or not required by law. The above report was generated using voice recognition software. It may contain grammatical, syntax or spelling errors. Electronically signed by: Fabricio Ruiz M.D. 01/27/2020 2:10 PM Dictated: 01/27/20 1408 Transcribed: 01/27/20 1408 [facility], [place] [phone] XRay Report Patient: DIMPLE PARISI Date: 01/27/20 MR#: [id number]: [address] Acct ID:[id number]: [address] Date: [facility] Zip: [place] [address] Age: 84Location: ED Sex: MRoom/Bed: Att Phy:Diagnosis: DIZZINESS Amaya Phy: Ernie Sanchez, DOService Date: 01/27/20 Fam Phy:Interpreting Phy: Irvin Thompson MD Admit Phy: Ordering Phy: Mahamed Roberson MD cc: ~ XR femur LT 2V routine CLINICAL HISTORY: Left hip pain following fall. COMPARISON: None FINDINGS: No acute fracture of the left femur is noted. 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 There is no left knee joint effusion. IMPRESSION: No acute fracture of the left femur. ACT 112: Negative or not required by law. Electronically signed by: Irvin Thompson M.D. 01/27/2020 4:54 PM Dictated: 01/27/201653 Transcribed: 01/27/201653 [place], [place] [phone] XRay Report Patient: DIMPLE PARISI Date: 01/27/20 MR#: [id number]: [address] Acct ID:[id number]: [address] Date: [facility] Zip: [place] [address] Age: 84Location: ED Sex: MRoom/Bed: Att Phy:Diagnosis: DIZZINESS Amaya Phy: Ernie Sanchez, DOService Date: 01/27/20 Fam Phy:Interpreting Phy: Irvin Thompson MD Admit Phy: Ordering Phy: Mahamed Roberson MD cc: ~ XR pelvis 1-2V routine CLINICAL HISTORY: Left hip pain following fall. COMPARISON: None FINDINGS: No acute fracture is identified within the pelvis or hips. Moderate amount stool within the rectum is noted. Sacroiliac joints and symphysis pubis are intact. IMPRESSION: No acute fracture within the pelvis or hips. ACT 112: Negative or not required by law. Electronically signed by: Irvin Thompson M.D. 01/27/2020 4:45 PM Dictated: 01/27/201642 Transcribed: 01/27/201642 ECG Data Attestation: I personally reviewed and interpreted this ECG as follows: Indication: + weakness Rate (beats per minute): 63 Rhythm: + normal sinus ECG Intervals/blocks: + Incomplete right bundle branch block ECG Rover: + Normal ECG ST segments: no ST depression and no ST elevation Comparison ECG Date: from (07/20/2016) Change: no significant change MDM Narrative This is an 84-year-old male with poor mobility presents emergency department for multiple falls. Patient's creatinine is bumped. He was given a normal saline bolus here in the emergency department his troponin remains normal. Based on the patient's multiple falls I do believe the patient should be admitted to the hospitalist service for consider placement. Patient and family are in agreement with the treatment plan. Patient was seen and evaluated as above in room . Review was performed of nursing notes and vital signs. I did review pertinent previous visits and patient history. After obtaining a thorough history and physical examination the above work up was performed. While in the department, I personally reevaluated the patient several times and each time the patient was found to be resting comfortably. The patient was educated upon management, educated upon todays findings/results, educated upon importance of follow up from today's visit, educated upon symptoms in which to return, had questions answered prior to discharge, verbalized understanding, and was discharged home in good condition. An order was placed for continuous cardiac monitoring. The monitor shows a rate of 63 with Normal Sinus rhythm. The patient was evaluated during the global COVID-19 pandemic, and that diagnosis was suspected/considered upon their initial presentation. Their evaluation, treatment and testing was consistent with current guidelines for patients who present with complaints or symptoms that may be related to COVID- 19. Impression & Plan Left hip pain, Generalized weakness, Fall, Elevated serum creatinine, Chronic respiratory failure with hypoxia Discharge Plan Visit Data Chief Complaint: Dizziness Stated Complaint: dizzy,weak s/p fall 2 days ago ED Provider: Mahamed Roberson Discharge Problem: Left hip pain, Generalized weakness, Fall, Elevated serum creatinine, Chronic respiratory failure with hypoxia Patient Disposition: Admitted As Inpatient Condition: Fair Discharge Instructions Interventions: ED Discharge Assessment Last Done: 01/27/20 19:42 Discharge Problem: Fall Qualifiers: Encounter type: initial encounter Qualified Code(s): W19.XXXA - Unspecified fall, initial encounter
== END 2020-01-29 19:37 ==
LOC: ED 12:33 → 3N 12:33

== ENCOUNTER 2020-02-02 14:39 | Inpatient (IN) ==
--- NOTE | 2020-02-02 15:04 | Emergency Department Note ---
Impression & Plan Chronic respiratory failure with hypoxia, Bronchitis, Transient confusion ED Provider Note Provider: Grant Nowak MD DATE OF SERVICE: 02/02/2020 CHIEF COMPLAINT: Shortness of breath, confusion HISTORY OF PRESENT ILLNESS: Patient is a 84-year-old gentleman with a past medical history including COPD with chronic hypoxia on home oxygen 3 L, type 2 diabetes, CVA, CKD with recent hospitalization for falls and weakness presenting here from [facility] today via ambulance with reports of shortness of breath and more confusion/weakness today. Patient states he awoke this morning and was very weak and could barely raise his arms. States he had difficulty answering questions he was being asked and was feeling short of breath. Patient states he was having hallucinations. Patient denies trauma or falls. He denies fever he is knows of. Patient denies head pain, chest pain, or abdominal pain. Patient states he has improved some since earlier but still feels short of breath. REVIEW OF SYSTEMS: A total of 10 review of systems was obtained and negative except as stated above in the HPI. PAST MEDICAL HISTORY: As noted above MEDICATIONS: Reviewed medication listing from facility SOCIAL HISTORY: Former smoker, currently residing at [facility] nursing facility PHYSICAL EXAM: GENERAL: alert and oriented in no acute distress on stretcher Head: normocephalic and atraumatic EYES: No injection or icterus. PERRL. There is some slight bilateral clear discharge from the eyes but not significantly purulent. NECK: Trachea midline. Supple. ENT: Mucous membranes pink and moist. Pharynx without erythema or exudate. LUNGS: Airway patent. No retractions. Breath sounds diminished with scattered wheeze. HEART: Regular rate and rhythm. No chest wall tenderness ABDOMEN: Soft and non-tender, without guarding or rebound. SKIN: Acyanotic, warm, dry. Does have some scattered bruising on the upper forearms likely from prior IVs. EXTREMITIES: Without swelling, tenderness or deformity NEUROLOGICAL: No focal deficits following commands in all extremities. No aphasia. No facial droop or slurred speech. EK bpm normal sinus rhythm. No PVC. Incomplete right bundle branch block noted with left axis. No acute ST segment elevation or depression. CONTINUOUS CARDIAC MONITORING: was ordered and showed a heart rate of 66 bpm in normal sinus rhythm Patient's hypertension was referred to the hospitalist Patient's laboratory studies and imaging reviewed. Differential includes Infection, dehydration, metabolic abnormality, hypo/hyperglycemia, electrolyte disturbance, anemia, hypoxia, cardiac sources, intracerebral event, toxicologic, neurologic, as well as other pathologies. IMPRESSION/MEDICAL DECISION MAKING: Patient presents with himself reporting shortness of breath as well as hallucinations and weakness earlier. Facility transfer order indicates that he had acute on set of dysphasia and confusion as well as weakness this morning. Does not appear to be hallucinating or that altered at this time. On exam does not appear to have significant focal deficits although occult stroke was considered. Given unclear last known well is not a TPA candidate as well as his significant improvement from what he reports earlier. Complains of some shortness of breath which unsure if this is related or not. History of COPD. X-ray and basic labs were obtained as well as VBG to see if hypercarbia may be contributing to his weakness and hallucination symptoms. VBG was unremarkable. Infectious and metabolic work-up was also completed. Patient appears satting in the high 90s on his baseline 3 L here likely. Reviewed recent hospitalization records with recent negative COVID test from 4 days ago do not feel we need to repeat at this time. Son later arrives and states he thinks some of the confusion earlier may been from some Ativan the patient's been intermittently receiving more frequently at the facility. Son is concerned the patient has been getting his normal chest percussion therapy from his vest that he has at home. Patient does have some thick secretions he is coughing up here. Procalcitonin is moderately elevated but patient is afebrile and without significant cytosis here. Do question he has underlying infection possibly COPD exacerbation although is not significantly wheezy at this time. Given dose of ceftriaxone and doxycycline empirically to cover for any possible community- acquired pneumonia although the x-ray is not super impressive. Does not appear fluid overloaded. Urine sample still pending at this time as well and could be possible source of some of his symptoms. Patient likely would benefit with continued good respiratory and secretion management. Believe further observation given the transient confusion earlier and his tenuous respiratory status is reasonable in discussion with the patient and his son and the hospitalist was contacted. Patient son was in agreement. DIAGNOSIS: Shortness of breath, transient confusion, hallucinations, bronchitis DISPOSITION: Hospitalist will evaluate Patient and son were in agreement with this plan. Past Med/Surg History Medical History (Updated 02/02/20 @ 19:14 by Grant Nowak M.D.) Anemia Anxiety BPH (benign prostatic hyperplasia) Bronchiectasis Chronic respiratory failure with hypoxia Collapsed lung COPD (chronic obstructive pulmonary disease) CVA (cerebral vascular accident) CVA (cerebral vascular accident) Diabetes mellitus, type 2 Fall GERD (gastroesophageal reflux disease) Insomnia Left foot drop Peripheral neuropathy Pneumonia RLS (restless legs syndrome) Tracheomalacia Urinary retention Surgical History H/O cervical spine surgery H/O right inguinal hernia repair History of carpal tunnel surgery of right wrist Family History (Updated 01/27/20 @ 21:31 by Lulu Oneal MD) Other Family history non-contributory Social History Smoking Status: Former smoker Tobacco Type: Cigarettes Age Quit Using Tobacco: 74; Hx Alcohol Use: No Hx Substance Use: No Preferred Language: Persian Communication Ability: Effective [employer] Required: No Beliefs That Will Affect Care: None marital status: / Current Living Situation: Family Current Living Situation Comment: son and daughter in law Feels Safe at Home: Yes Allergies Allergies Allergy/AdvReac Type Severity Reaction Status Date / Time Cipro Allergy Intermediate unknown Unverified 08/22/16 05:39 ciprofloxacin Allergy Intermediate unknown Unverified 02/02/20 17:47 nitrofurantoin Allergy Intermediate unknown Unverified 02/02/20 17:47 Home Meds Home Medications Medication Instructions Recorded Confirmed Oxygen Home #1 ea 01/06/20 01/06/20 albuterol sulfate 2.5 mg/0.5 mL 2.5 mg INHALATION Q6H 01/06/20 02/02/20 solution for nebulization albuterol sulfate 90 mcg/actuation 2 puff INHALATION Q6H PRN 01/06/20 02/02/20 aerosol inhaler aspirin 81 mg tablet,delayed 81 mg PO DAILY 01/06/20 02/02/20 release budesonide-formoterol HFA 160 2 puff INHALATION BID 01/06/20 02/02/20 mcg-4.5 mcg/actuation aerosol inhaler finasteride 5 mg tablet 5 mg PO DAILY 01/06/20 02/02/20 loratadine 10 mg tablet 10 mg PO DAILY 01/06/20 02/02/20 melatonin 5 mg capsule 5 mg PO DAILY PRN cap 01/06/20 02/02/20 omeprazole 20 mg capsule,delayed 20 mg PO DAILY 01/06/20 02/02/20 release polyethylene glycol 3350 17 17 g PO DAILY PRN 01/06/20 02/02/20 gram/dose oral powder tamsulosin 0.4 mg capsule 0.4 mg PO DAILY 01/06/20 02/02/20 trazodone 100 mg tablet 100 mg PO HS 01/06/20 02/02/20 ascorbic acid (vitamin C) 500 mg PO DAILY 01/27/20 02/02/20 ferrous gluconate 324 mg PO DAILY 01/27/20 02/02/20 ropinirole 1 mg PO DAILY 01/27/20 02/02/20 acetaminophen [Tylenol Extra 1,000 mg PO Q8 02/02/20 02/02/20 Strength] acetaminophen [Tylenol] 650 mg PO Q12 PRN 02/02/20 02/02/20 loperamide 2 mg PO Q6H PRN 02/02/20 02/02/20 ropinirole 2 mg PO QPM 02/02/20 02/02/20 Previous Rx's Medication Instructions Recorded diclofenac sodium [Voltaren] 2 g EXT QID #100 g 01/29/20 lorazepam [Ativan] 1 mg PO BID PRN #5 tab 01/29/20 Results & Data (ED) Vital Signs Vital Signs - 24 hr 02/02/20 14:47 02/02/20 14:49 02/02/20 15:00 Temperature 37.1 C Temperature Source Oral Pulse Rate 65 66 59 L Pulse Rate from SpO2 Sensor 65 66 60 Pulse Strength Normal Respiratory Rate 24 19 Respiratory Effort / Characteristics Non-Labored Spontaneous Respiratory Depth Normal Blood Pressure 100/65 100/65 Blood Pressure Mean 83 76 Blood Pressure Position Lying Pulse Oximetry 97 97 98 Oxygen Delivery Method Nasal Cannula Nasal Cannula Nasal Cannula Oxygen Flow Rate 3 3 3 Sepsis Recent Fever Within 48 Hours No Sepsis New/Unexplained Change in Mental Status N/A Sepsis Action Taken by Nursing No Action Required 02/02/20 15:20 02/02/20 15:30 02/02/20 16:05 Temperature Temperature Source Pulse Rate 65 63 Pulse Rate from SpO2 Sensor 66 Pulse Strength Respiratory Rate 17 Respiratory Effort / Characteristics Respiratory Depth Blood Pressure Blood Pressure Mean Blood Pressure Position Pulse Oximetry 98 98 Oxygen Delivery Method Nasal Cannula Nasal Cannula Oxygen Flow Rate 3 3 Sepsis Recent Fever Within 48 Hours Sepsis New/Unexplained Change in Mental Status Sepsis Action Taken by Nursing 02/02/20 16:13 02/02/20 16:30 02/02/20 17:00 Temperature Temperature Source Pulse Rate 61 69 62 Pulse Rate from SpO2 Sensor 60 70 63 Pulse Strength Respiratory Rate 19 21 23 Respiratory Effort / Characteristics Respiratory Depth Blood Pressure 82/60 L 99/75 L Blood Pressure Mean 67 80 Blood Pressure Position Pulse Oximetry 99 90 100 Oxygen Delivery Method Oxygen Flow Rate 3 Sepsis Recent Fever Within 48 Hours Sepsis New/Unexplained Change in Mental Status Sepsis Action Taken by Nursing 02/02/20 17:30 02/02/20 17:32 02/02/20 18:00 Temperature Temperature Source Pulse Rate 65 62 96 H Pulse Rate from SpO2 Sensor 64 60 64 Pulse Strength Respiratory Rate 15 15 16 Respiratory Effort / Characteristics Respiratory Depth Blood Pressure 175/129 H Blood Pressure Mean 133 Blood Pressure Position Pulse Oximetry 99 99 97 Oxygen Delivery Method Oxygen Flow Rate Sepsis Recent Fever Within 48 Hours Sepsis New/Unexplained Change in Mental Status Sepsis Action Taken by Nursing 02/02/20 18:02 02/02/20 18:26 02/02/20 18:30 Temperature Temperature Source Pulse Rate 62 67 63 Pulse Rate from SpO2 Sensor 62 67 64 Pulse Strength Respiratory Rate 18 20 17 Respiratory Effort / Characteristics Respiratory Depth Blood Pressure 89/61 L 95/58 L 111/62 Blood Pressure Mean 73 78 71 Blood Pressure Position Pulse Oximetry 98 95 99 Oxygen Delivery Method Oxygen Flow Rate 3 3 3 Sepsis Recent Fever Within 48 Hours Sepsis New/Unexplained Change in Mental Status Sepsis Action Taken by Nursing 02/02/20 19:00 02/02/20 19:30 02/02/20 20:00 Temperature Temperature Source Pulse Rate 65 Pulse Rate from SpO2 Sensor 63 63 61 Pulse Strength Respiratory Rate 15 Respiratory Effort / Characteristics Respiratory Depth Blood Pressure 107/78 111/62 92/58 L Blood Pressure Mean 93 70 79 Blood Pressure Position Pulse Oximetry 100 99 98 Oxygen Delivery Method Oxygen Flow Rate 3 3 3 Sepsis Recent Fever Within 48 Hours Sepsis New/Unexplained Change in Mental Status Sepsis Action Taken by Nursing 02/02/20 20:30 Temperature Temperature Source Pulse Rate Pulse Rate from SpO2 Sensor 64 Pulse Strength Respiratory Rate 24 Respiratory Effort / Characteristics Respiratory Depth Blood Pressure 107/62 Blood Pressure Mean 74 Blood Pressure Position Pulse Oximetry 99 Oxygen Delivery Method Oxygen Flow Rate 3 Sepsis Recent Fever Within 48 Hours Sepsis New/Unexplained Change in Mental Status Sepsis Action Taken by Nursing Laboratory Data Result diagrams: 02/02/20 15:17 02/02/20 15:17 Lab Results 02/02/20 02/02/20 02/02/20 Range/Units 15:17 15:17 15:17 WBC 8.04 (4.8-10.8) K/uL RBC 3.17 L (4.7-6.1) M/uL Hgb 9.8 L (14.0-18.0) g/dL Hct 31.3 L (42-52) % MCV 98.7 (80-100) fL MCH 30.9 (25-34) pg MCHC 31.3 L (32-36) g/dL RDW Std Deviation 51.5 H (36.4-46.3) fL RDW Coeff of Elissa 14.3 (11.5-14.5) % Plt Count 190 (130-400) K/uL MPV 8.5 (7.4-10.4) fL Immature Gran % (Auto) 1.9 % Neut % (Auto) 79.7 % Lymph % (Auto) 9.3 % [place] % (Auto) 7.8 % Eos % (Auto) 1.2 % Baso % (Auto) 0.1 % Neut # (Auto) 6.40 (1.4-6.5) K/uL Lymph # (Auto) 0.75 L (1.2-3.4) K/uL [place] # (Auto) 0.63 H (0.11-0.59) K/uL Eos # (Auto) 0.10 (0-0.5) K/uL Baso # (Auto) 0.01 (0-0.2) K/uL Immature Gran # (Auto) 0.15 H (0.00-0.02) K/uL PT 10.8 (9.0-12.0) Seconds INR 1.0 (0.9-1.1) VBG pH (7.36-7.41) VBG pCO2 (38-50) mmHg VBG pO2 mmHg VBG HCO3 mmol/L VBG O2 Saturation % VBG Base Excess mEq/L Barometric Pressure mm/Hg Sodium 139 (136-145) mmol/L Potassium 3.8 (3.5-5.1) mmol/L Chloride 107 (98-107) mmol/L Carbon Dioxide 26 (21-32) mmol/L Anion Gap 6.0 (3-11) BUN 46 H (7-18) mg/dl Creatinine 1.58 H (0.6-1.4) mg/dl Est Cr Clr Drug Dosing 36.8 ml/min Est GFR ( Amer) 45.2 Est GFR (Non-Af Amer) 39.0 BUN/Creatinine Ratio 29.1 H (10-20) Glucose 116 H (70-99) mg/dl Lactate (0.4-2.0) mmol/L Calcium 8.0 L (8.5-10.1) mg/dl Magnesium 3.0 H (1.8-2.4) mg/dl Total Bilirubin 0.5 (0.2-1) mg/dl AST 57 H (15-37) U/L ALT 69 (12-78) U/L Alkaline Phosphatase 93 (45-117) U/L Troponin I < 0.015 (0-0.045) ng/ml Total Protein 6.4 (6.4-8.2) gm/dl Albumin 2.9 L (3.4-5.0) gm/dl Globulin 3.5 (2.5-4.0) gm/dl Albumin/Globulin Ratio 0.8 L (0.9-2) Procalcitonin (0-0.5) ng/ml TSH 3.790 (0.300-4.500) uIu/ml 02/02/20 02/02/20 02/02/20 Range/Units 15:17 15:28 15:28 WBC (4.8-10.8) K/uL RBC (4.7-6.1) M/uL Hgb (14.0-18.0) g/dL Hct (42-52) % MCV (80-100) fL MCH (25-34) pg MCHC (32-36) g/dL RDW Std Deviation (36.4-46.3) fL RDW Coeff of Elissa (11.5-14.5) % Plt Count (130-400) K/uL MPV (7.4-10.4) fL Immature Gran % (Auto) % Neut % (Auto) % Lymph % (Auto) % [place] % (Auto) % Eos % (Auto) % Baso % (Auto) % Neut # (Auto) (1.4-6.5) K/uL Lymph # (Auto) (1.2-3.4) K/uL [place] # (Auto) (0.11-0.59) K/uL Eos # (Auto) (0-0.5) K/uL Baso # (Auto) (0-0.2) K/uL Immature Gran # (Auto) (0.00-0.02) K/uL PT (9.0-12.0) Seconds INR (0.9-1.1) VBG pH 7.37 (7.36-7.41) VBG pCO2 47 (38-50) mmHg VBG pO2 62 mmHg VBG HCO3 26 mmol/L VBG O2 Saturation 89.9 % VBG Base Excess 0.6 mEq/L Barometric Pressure 738.5 mm/Hg Sodium (136-145) mmol/L Potassium (3.5-5.1) mmol/L Chloride (98-107) mmol/L Carbon Dioxide (21-32) mmol/L Anion Gap (3-11) BUN (7-18) mg/dl Creatinine (0.6-1.4) mg/dl Est Cr Clr Drug Dosing ml/min Est GFR ( Amer) Est GFR (Non-Af Amer) BUN/Creatinine Ratio (10-20) Glucose (70-99) mg/dl Lactate 0.7 (0.4-2.0) mmol/L Calcium (8.5-10.1) mg/dl Magnesium (1.8-2.4) mg/dl Total Bilirubin (0.2-1) mg/dl AST (15-37) U/L ALT (12-78) U/L Alkaline Phosphatase (45-117) U/L Troponin I (0-0.045) ng/ml Total Protein (6.4-8.2) gm/dl Albumin (3.4-5.0) gm/dl Globulin (2.5-4.0) gm/dl Albumin/Globulin Ratio (0.9-2) Procalcitonin 0.52 H (0-0.5) ng/ml TSH (0.300-4.500) uIu/ml Administered Medications Discontinued Medications Doxycycline Hyclate (Doxycycline Hyclate 100 Mg Cap) 100 mg PO NOW STA Stop: 02/02/20 17:32 Last Admin: 02/02/20 17:53 Dose: 100 mg Documented by: [id number] Sodium Chloride (Nss 1000ml) 500 mls @ 999 mls/hr IV .Q31M ONE Stop: 02/02/20 18:01 Last Infusion: 02/02/20 20:54 Dose: 0 mls/hr Documented by: [id number] Admin: 02/02/20 17:56 Dose: 999 mls/hr Documented by: [id number] Ceftriaxone Sodium (Rocephin) 2,000 mg in 70 mls @ 140 mls/hr IV NOW STA Stop: 02/02/20 18:00 Last Infusion: 02/02/20 20:55 Dose: 0 mls/hr Documented by: [id number] Admin: 02/02/20 17:55 Dose: 140 mls/hr Documented by: [id number] Discharge Plan Visit Data Chief Complaint: Shortness of Breath/Dyspnea ED Provider: Grant Nowak Discharge Problem: Chronic respiratory failure with hypoxia, Bronchitis, Transient confusion Patient Disposition: Being Evaluated by Hospitalist Forms Stand Alone Forms: My [facility] Prescriptions Prescriptions: No Action albuterol sulfate 2.5 mg/0.5 mL solution for nebulization 2.5 mg inhalation Q6H RF: 0 aspirin 81 mg tablet,delayed release (DR/EC) 81 mg PO DAILY RF: 0 loratadine [Claritin] 10 mg tablet 10 mg PO DAILY RF: 0 finasteride 5 mg tablet 5 mg PO DAILY RF: 0 melatonin 5 mg capsule 5 mg PO DAILY PRN (Reason: Sleep) RF: 0 omeprazole 20 mg capsule,delayed release(DR/EC) 20 mg PO DAILY RF: 0 (DME) Oxygen Home Liters Per Minute See Rx Instructions .ROUTE .MEDSUPPLY Qty: 1 RF: 0 polyethylene glycol 3350 17 gram/dose powder 17 g PO DAILY PRN (Reason: Constipation) RF: 0 albuterol sulfate [Proventil HFA] 90 mcg/actuation HFA aerosol inhaler 2 puff inhalation Q6H PRN (Reason: Shortness Of Breath) RF: 0 budesonide-formoterol [Symbicort] 160-4.5 mcg/actuation HFA aerosol inhaler 2 puff inhalation BID RF: 0 tamsulosin 0.4 mg capsule 0.4 mg PO DAILY RF: 0 trazodone 100 mg tablet 100 mg PO HS RF: 0 ropinirole 1 mg Tablet 1 mg PO DAILY RF: 0 ascorbic acid (vitamin C) 500 mg Tablet 500 mg PO DAILY RF: 0 ferrous gluconate 324 mg (36 mg iron) Tablet 324 mg PO DAILY RF: 0 diclofenac sodium [Voltaren] 1 % Gel 2 g EXT QID Qty: 100 RF: 0 lorazepam [Ativan] 1 mg Tablet 1 mg PO BID PRN (Reason: Anxiety) Qty: 5 RF: 0 acetaminophen [Tylenol] 325 mg Tablet 650 mg PO Q12 PRN (Reason: Fever Or Pain) RF: 0 ropinirole 1 mg Tablet 2 mg PO QPM RF: 0 loperamide 2 mg Capsule 2 mg PO Q6H PRN (Reason: Diarrhea) RF: 0 acetaminophen [Tylenol Extra Strength] 500 mg Tablet 1,000 mg PO Q8 RF: 0 Referrals Referrals: Sharyn Yen [Primary Care Provider] -
[2020-02-02 15:33] LABS: Basophils # (auto) 0.01 K/uL (0-0.2); Basophils % (auto) 0.1 %; Eosinophils % (auto) 1.2 %; Hematocrit (blood only) 31.3 % (42-52); Hemoglobin 9.8 g/dL (14.0-18.0); Immature Granulocytes # (auto) 0.15 K/uL (0.00-0.02); Immature Granulocytes % (auto) 1.9 %; Lymphocytes # (auto) 0.75 K/uL (1.2-3.4); Lymphocytes % (auto) 9.3 %; Mean Corpuscular Hemoglobin 30.9 pg (25-34); Mean Corpuscular Hgb Conc 31.3 g/dL (32-36); Mean Corpuscular Volume 98.7 fL (80-100); Mean Platelet Volume 8.5 fL (7.4-10.4); Monocytes # (auto) 0.63 K/uL (0.11-0.59); Monocytes % (auto) 7.8 %; Neutrophils % (auto) 79.7 %; Platelet Count 190 K/uL (130-400); RDW Coefficient of Variation 14.3 % (11.5-14.5); RDW Standard Deviation 51.5 fL (36.4-46.3); Red Blood Count 3.17 M/uL (4.7-6.1); White Blood Count 8.04 K/uL (4.8-10.8)
[2020-02-02 15:39] LABS: Base Excess VBG 0.6 mEq/L; Oxygen Saturation VBG 89.9 %; pH VBG 7.37 (7.36-7.41)
[2020-02-02 15:42] LABS: Prothrombin Time 10.8 Seconds (9.0-12.0)
[2020-02-02 15:49] LABS: Alanine Aminotransferase 69 U/L (12-78); Albumin Level 2.9 gm/dl (3.4-5.0); Aspartate Aminotransferase 57 U/L (15-37); BUN Creatinine Ratio 29.1 (10-20); Blood Urea Nitrogen 46 mg/dl (7-18); Carbon Dioxide 26 mmol/L (21-32); Chloride 107 mmol/L (98-107); Creatinine Clr Calc Pharmacy 36.8 ml/min; Est GFR (African American) 45.2; Glucose 116 mg/dl (70-99); Potassium 3.8 mmol/L (3.5-5.1); Sodium 139 mmol/L (136-145)
[2020-02-02 15:59] LABS: Albumin Globulin Ratio 0.8 (0.9-2); Alkaline Phosphatase 93 U/L (45-117); Bilirubin,Total 0.5 mg/dl (0.2-1); Globulin 3.5 gm/dl (2.5-4.0); Total Protein 6.4 gm/dl (6.4-8.2); Troponin I < 0.015 ng/ml (0-0.045)
--- NOTE | 2020-02-02 16:09 | CT Scan Report ---
CT head/brain wo con CLINICAL HISTORY: 84 years-old Male with confusion. Acutely altered mental status with confusion TECHNIQUE: Multiple axial CT images of the head were obtained without contrast. A dose lowering tech nique was utilized adhering to the principles of ALARA. CT DOSE: 1915.68 mGycm COMPARISON: Head CT 01/27/2020 FINDINGS: Mildly motion degraded exam. Age-related involutional changes with ex vacuo ventriculomegaly. Patchy white matter hypodensities suggest chronic microvascular ischemic disease. Cerebral vascular calcific ations. No acute intracranial hemorrhage, midline shift, intracranial mass, hydrocephalus, territoria l ischemia or abnormal extra-axial collection. The calvarium is intact. The paranasal sinuses, mastoi d air cells, and middle ear cavities are clear. IMPRESSION: No acute intracranial abnormality. ACT 112: Negative or not required by law. The above report was generated using voice recognition software. It may contain grammatical, syntax o r spelling errors. Electronically signed by: Fabricio Ruiz M.D. 02/02/2020 4:08 PM
--- NOTE | 2020-02-02 16:46 | XRay Report ---
XR chest 1V portable HISTORY: 84 years-old Male sob, confusion acute shortness of breath with confusion COMPARISON: Chest radiograph 01/27/2020 TECHNIQUE: Portable AP view of the chest FINDINGS: Cardiac silhouette is enlarged, unchanged. Stable right hemidiaphragmatic elevation. Mild subsegmenta l bibasilar opacities. Small pleural effusions. Emphysema. No pneumothorax or overt pulmonary edema. Degenerative changes of the shoulders and spine. IMPRESSION: 1. Cardiomegaly without overt pulmonary edema. 2. Unchanged small pleural effusions with bibasilar opacities suggestive of atelectasis. 3. Emphysema. ACT 112: Negative or not required by law. The above report was generated using voice recognition software. It may contain grammatical, syntax o r spelling errors. Electronically signed by: Fabricio Ruiz M.D. 02/02/2020 4:45 PM
[2020-02-02] MEDS ORDERED: DOXYCYCLINE HYCLATE 100 MG CAP PO STA (17:31)
[2020-02-02] MEDS ORDERED: cefTRIAXone SODIUM 2,000 MG/70 ML BAG IV STA (17:31)
[2020-02-02] MEDS ORDERED: SODIUM CHLORIDE 0.9% 1000ML 500 ML IV ONE (17:31)
[2020-02-02] MEDS ORDERED: POLYETHYLENE (MIRALAX) 17 GM PACK PO PRN (23:54)
[2020-02-02] MEDS ORDERED: LOPERAMIDE HCL 2 MG CAP PO PRN (23:54)
[2020-02-02] MEDS ORDERED: ALBUTEROL HFA 8 GM INHALER INH PRN (23:54)
[2020-02-03] MEDS ORDERED: LORazepam 1 MG TAB PO PRN (00:01)
[2020-02-03] MEDS ORDERED: MELATONIN 3 MG TAB PO PRN (00:02)
[2020-02-03] MEDS: ALBUTEROL 0.5% NEB SOLN 2.5 MG/0.5 ML VIAL INH SCH ×4 (00:32→19:54)
[2020-02-03] MEDS: ROPINIROLE HCL 1 MG TABLET PO SCH ×3 (00:44→20:39)
[2020-02-03] MEDS: ACETAMINOPHEN 500 MG TAB PO SCH ×3 (00:44→17:04)
[2020-02-03] MEDS: TRAZODONE HCL 100 MG TAB PO SCH ×2 (00:45→20:38)
[2020-02-03] MEDS: DICLOFENAC SOD 1% GEL 100 GM TUBE EXT SCH ×5 (00:45→20:39)
--- NOTE | 2020-02-03 07:10 | History & Physical Report ---
Date of Service February 02, 2020 Assessment & Plan (1) Mucus plugging of bronchi: Suspect this is what occurred at [facility] causing acute confusion. No definitive evidence of PNA at current time. Procalcitonin minimally elevated. CXR normal. B/l rhonchi present on exam. WBC normal. Ceftriaxone and doxycycline given in ER. Will discontinue further antibiotics pending clinical course - certainly high risk of developing PNA. Was not using his usual vibration vest which he has needed chronically twice a day for the last few years. Use vibration vest QID. Flutter valve. Incentive spirometry. (2) Oropharyngeal dysphagia: Suspected aspirations based on history. Aspiration precautions. Consult SLT. (3) Transient confusion: ? Secondary to hypoxia with mucous plugging as above ? Delirium with dementia (4) Left foot drop: Secondary to prior stroke. Notable weakness also on right side which his son feels is secondary to his recent immobility. PT/OT evals (5) Obstructive sleep apnea: Use patient's own BiPAP (6) Restless leg syndrome: Continue ropinirole 1 mg p.o. daily, 2 mg p.o. every afternoon (7) COPD (chronic obstructive pulmonary disease): Continue Symbicort 2 puffs inhalation twice daily on hospital formulary equivalent Continue routine nebulizers (8) Tracheomalacia: BiPAP as above. Try to avoid steroids. (9) GERD (gastroesophageal reflux disease): Switch omeprazole for pantoprazole as per hospital formulary (10) BPH (benign prostatic hyperplasia): Continue finasteride 5 mg p.o. daily Admission and Anticipated Discharge Date Admission Date: February 02, 2020 History of Present Illness Chief Complaint: Shortness of breath, dysphagia Primary Care Provider: [place] Yovana Hilario Carrington is an 84 year old male who presents to the ER from [facility] home due to shortness of breath, increased rhonchi, cough and possible new dysphagia. He was recently admitted to [facility] from January 26- due to inability to cope at home with his [id number] and son who had a recent hernia operation therefore is unable to lift his father. He has had multiple falls in the last year which was the main reason for his last admission. He has COPD with chronic respiratory failure and tracheomalacia. As per his son at bedside he should have been using a vibration vest twice a day however this was not used during his previous hospitalization or his short stay at [facility]. His son was called today that his breathing was much worse and recommended recommended his father be transported to the ER for further workup. One hand over sheet from [facility] mentions concern for new dysphagia although the patient denies this to me - no odynophagia or dysphagia. His son reports he does have to bend his head over when drinking water as sometimes he would aspirate on this but is otherwise on a normal diet. His son feels the patient is close to his baseline at the current time although it was mainly his (patient's [id number]) who saw him during his last admission. The patient denies any fevers, chills. He reports using his BiPAP last night. His main concern is the amount of mucus he is coughing up which is much more. He notes chronic nasal congestion which is no worse than usual. Allergies Allergy/AdvReac Type Severity Reaction Status Date / Time Cipro Allergy Intermediate unknown Unverified 08/22/16 05:39 ciprofloxacin Allergy Intermediate unknown Unverified 02/02/20 17:47 nitrofurantoin Allergy Intermediate unknown Unverified 02/02/20 17:47 Home Medications Home Medications Medication Instructions Recorded Confirmed Type Oxygen Home #1 ea 01/06/20 01/06/20 History albuterol sulfate 2.5 mg/0.5 mL 2.5 mg INHALATION Q6H 01/06/20 02/02/20 History solution for nebulization albuterol sulfate 90 mcg/actuation 2 puff INHALATION Q6H PRN 01/06/20 02/02/20 History aerosol inhaler aspirin 81 mg tablet,delayed 81 mg PO DAILY 01/06/20 02/02/20 History release budesonide-formoterol HFA 160 2 puff INHALATION BID 01/06/20 02/02/20 History mcg-4.5 mcg/actuation aerosol inhaler finasteride 5 mg tablet 5 mg PO DAILY 01/06/20 02/02/20 History loratadine 10 mg tablet 10 mg PO DAILY 01/06/20 02/02/20 History melatonin 5 mg capsule 5 mg PO DAILY PRN cap 01/06/20 02/02/20 History omeprazole 20 mg capsule,delayed 20 mg PO DAILY 01/06/20 02/02/20 History release polyethylene glycol 3350 17 17 g PO DAILY PRN 01/06/20 02/02/20 History gram/dose oral powder tamsulosin 0.4 mg capsule 0.4 mg PO DAILY 01/06/20 02/02/20 History trazodone 100 mg tablet 100 mg PO HS 01/06/20 02/02/20 History ascorbic acid (vitamin C) 500 mg PO DAILY 01/27/20 02/02/20 History ferrous gluconate 324 mg PO DAILY 01/27/20 02/02/20 History ropinirole 1 mg PO DAILY 01/27/20 02/02/20 History diclofenac sodium [Voltaren] 2 g EXT QID #100 g 01/29/20 02/02/20 Rx lorazepam [Ativan] 1 mg PO BID PRN #5 tab 01/29/20 02/02/20 Rx acetaminophen [Tylenol Extra 1,000 mg PO Q8 02/02/20 02/02/20 History Strength] acetaminophen [Tylenol] 650 mg PO Q12 PRN 02/02/20 02/02/20 History loperamide 2 mg PO Q6H PRN 02/02/20 02/02/20 History ropinirole 2 mg PO QPM 02/02/20 02/02/20 History Past Med/Surg History Medical History (Updated 02/03/20 @ 07:06 by Anson Drew MD) Anemia Anxiety BPH (benign prostatic hyperplasia) Bronchiectasis Chronic respiratory failure with hypoxia Collapsed lung COPD (chronic obstructive pulmonary disease) CVA (cerebral vascular accident) CVA (cerebral vascular accident) Diabetes mellitus, type 2 Fall GERD (gastroesophageal reflux disease) Insomnia Left foot drop Peripheral neuropathy Pneumonia RLS (restless legs syndrome) Tracheomalacia Urinary retention Surgical History H/O cervical spine surgery H/O right inguinal hernia repair History of carpal tunnel surgery of right wrist Family History (Updated 01/27/20 @ 21:31 by Lulu Oneal MD) Other Family history non-contributory Social History Smoking Status: Former smoker Tobacco Type: Cigarettes Age Quit Using Tobacco: 74; Do You Dip or Chew Tobacco: No; Hx Alcohol Use: No Hx Substance Use: No Preferred Language: [place] African Communication Ability: Effective Associate Relations Specialist Required: No Beliefs That Will Affect Care: None marital status: / Current Living Situation: [facility] Current Living Situation Comment: son and daughter in law Feels Safe at Home: Yes Review of Systems Review of Systems: All systems reviewed & are unremarkable except as noted in HPI & below Physical Exam Constitutional: well developed, + acute distress (Respiratory status as below) and + frail appearing; + not well nourished Eyes: PERRL, conjunctivae normal, anicteric sclerae ENMT: Mouth: + dry oral mucous membranes Neck: trachea midline Respiratory: + retractions, + uses accessory muscles, + cough (Frequent productive cough) and able to speak in complete sentences Auscultation: + rhonchi (Bilateral upper airway sounds throughout); no diminished lung sounds, no crackles and no wheezes Cardiovascular: Rate/Rhythm: regular rate and regular rhythm Heart Sounds: no murmur Extremities: normal capillary refill; no calf tenderness and no pedal edema Musculoskeletal: Chronic appearing external rotation of his right hip with extensive degenerative changes right knee. Significant muscle wasting of quadriceps bilaterally. Contractures of both calf muscles bilaterally. Skin: no rashes, warm and dry (Venous insufficiency changes bilaterally with no cellulitis) Neurologic: moves all extremities (Very limited movement of lower extremities as below) and awake; not confused Speech / Cognition: normal speech Motor/Sensory: no tremor and no pronator drift (Difficult to assess due to rotator cuff injury on left side, no pronator drift on right) Cranial Nerves: PERRL, EOM intact bilaterally, normal facial strength, tongue midline, able to rotate head bilaterally, able to elevate shoulders bilaterally (Chronic appearing shoulder elevation), no nystagmus and symmetric palate elevation; + hearing impairment (Chronic bilateral hearing loss) Coordination: + abnormal [id number] test (Unable to perform task due to bilateral lower extremity weakness); normal [id number] test (Difficult on left side due to rotator cuff injury) Proximal left upper extremity weakness (reportedly due to rotator cuff injury on the side) Right upper extremity 5/5 Bilateral lower extremity weakness with L > R Unable to dorsiflex his right foot beyond neutral position, left foot drop with minimal ability to dorsiflexion Absent knee reflexes bilaterally Psychiatric: Orientation: alert and oriented x 3 Affect: euthymic affect Genitourinary: no CVA tenderness Lymphatic: no cervical or axillary lymphadenopathy Results & Data Results & Data ([facility]) Vital Signs (Past 12 Hours) Vital Signs Temp Pulse Resp BP Pulse Ox 02/02/20 19:00 65 15 107/78 100 02/02/20 18:30 63 17 111/62 99 02/02/20 18:26 67 20 95/58 L 95 02/02/20 18:02 62 18 89/61 L 98 02/02/20 18:00 96 H 16 97 02/02/20 17:32 62 15 175/129 H 99 02/02/20 17:30 65 15 99 02/02/20 17:00 62 23 100 02/02/20 16:30 69 21 99/75 L 90 02/02/20 16:13 61 19 82/60 L 99 02/02/20 16:05 63 17 02/02/20 15:30 65 98 02/02/20 15:20 98 02/02/20 15:00 59 L 98 02/02/20 14:49 37.1 C 66 19 100/65 97 02/02/20 14:47 65 24 100/65 97 Diagnostic Findings XR chest 1V portable IMPRESSION: 1. Cardiomegaly without overt pulmonary edema. 2. Unchanged small pleural effusions with bibasilar opacities suggestive of atelectasis. 3. Emphysema. CT head/brain wo con IMPRESSION: No acute intracranial abnormality. Code Status & VTE Plan Code Status DNR/DNI as per patient wishes VTE Prophylaxis Plan VTE Prophylaxis will be ordered: Yes PG Care Time/CCT Total # of Minutes Spent Total Time Spent with Patient: Total time spent is greater than 50% in coordination of care (as documented) at patient's floor/unit and/or counseling patient: Coding Level of Care Code 58708 OBS Care - Level 3 Diagnoses Mucus plugging of bronchi J98.09 Oropharyngeal dysphagia R13.12 Transient confusion R41.0 Left foot drop M21.372 Obstructive sleep apnea G47.33 Restless leg syndrome G25.81 COPD (chronic obstructive pulmonary disease) J44.9 Tracheomalacia J39.8 GERD (gastroesophageal reflux disease) K21.9 BPH (benign prostatic hyperplasia) N40.0
[2020-02-03] MEDS: ASCORBIC ACID 500 MG TAB PO SCH (08:11)
[2020-02-03] MEDS: PANTOprazole 40 MG TAB PO SCH (08:11)
[2020-02-03] MEDS: LORATADINE 10 MG TAB PO SCH (08:12)
[2020-02-03] MEDS: FERROUS GLUCONATE 324 MG TAB PO SCH (08:12)
[2020-02-03] MEDS: TAMSULOSIN HCL 0.4 MG CAP PO SCH (08:12)
[2020-02-03] MEDS: ASPIRIN 81 MG ECTAB PO SCH (08:12)
[2020-02-03] MEDS: FINASTERIDE 5 MG TAB PO SCH (08:15)
[2020-02-03] MEDS: FLUTICASONE/VILANTEROL 100/25MCG 14 PUFFS/INHALER INH SCH (08:15)
[2020-02-03 08:38] LABS: Appearance Urine Turbid (Clear); Bilirubin Urine Negative (Negative); Blood Urine 1+ (Negative); Color Urine Yellow; Glucose Urine UA Negative (Negative); Ketones Urine Negative (Negative); Leukocyte Esterase Urine 3+ (Negative); Nitrite Urine Positive (Negative); Specific Gravity Urine 1.017 (1.000-1.030); Urobilinogen Urine Negative (Negative); WBC Urine Automated >30 /hpf (0-5); pH Urine 7.5 (4.5-7.5)
[2020-02-03 08:55] LABS: Protein Urine 2+ (Negative); Sulfosalicylic Acid Urine Positive (Negative)
[2020-02-03 09:03] LABS: Bacteria Urine Automated 1+ (Negative); RBC Urine Automated 0-4 /hpf (0-4)
[2020-02-03] MEDS ORDERED: MICONAZOLE NITRATE POWDER 43 GM EXT PRN (16:22)
--- NOTE | 2020-02-03 17:01 | Hospitalist Progress Note ---
Date of Service February 03, 2020 Assessment & Plan (1) Mucus plugging of bronchi: Suspect this is what occurred at [facility] causing acute confusion. No definitive evidence of PNA at current time. Procalcitonin minimally elevated. CXR normal. B/l rhonchi present on exam. WBC normal. Ceftriaxone and doxycycline given in ER. Will discontinue further antibiotics pending clinical course - certainly high risk of developing PNA. use vibratory vest BID, started after lunch today Flutter valve. Incentive spirometry. should be ready to return to [facility], consult PT/OT, anticipate him going tomorrow (2) Oropharyngeal dysphagia: Suspected aspirations based on history. Aspiration precautions. Consult SLT - slippery diet, sit upright, aspiration precautions (3) Transient confusion: ? Secondary to hypoxia with mucous plugging as above better today, likely due to hypoxia (4) Left foot drop: Secondary to prior stroke. Notable weakness also on right side which his son feels is secondary to his recent immobility. PT/OT evals (5) Obstructive sleep apnea: Use patient's own BiPAP (6) Restless leg syndrome: Continue ropinirole 1 mg p.o. daily, 2 mg p.o. every afternoon (7) COPD (chronic obstructive pulmonary disease): Continue Symbicort 2 puffs inhalation twice daily on hospital formulary equivalent Continue routine nebulizers (8) Tracheomalacia: BiPAP as above. Try to avoid steroids. (9) GERD (gastroesophageal reflux disease): Switch omeprazole for pantoprazole as per hospital formulary (10) BPH (benign prostatic hyperplasia): Continue finasteride 5 mg p.o. daily Admission and Anticipated Discharge Date Admission Date: February 02, 2020 Subjective patient breathing well, no issues today son requests that his vibratory vest be used twice a day, I called respiratory therapy to request continue flutter valve patient is coughing up more phlegm appreciate speech therapy evaluation patient eating well will try to get patient to [facility] tomorrow, consult PT/OT Review of Systems Review of Systems: All systems reviewed & are unremarkable except as noted in Subjective Constitutional: no fever and no chills Respiratory: + cough and + sputum production; no dyspnea, no dyspnea on exertion and no wheezing Cardiovascular: no chest pain and no edema Gastrointestinal: no abdominal pain, no nausea, no vomiting, no constipation and no diarrhea/loose stools Physical Exam Constitutional: well developed, + thin and comfortable; no acute distress Eyes: PERRL, conjunctivae normal, anicteric sclerae ENMT: external ear and nose normal, oropharynx normal Neck: trachea midline, no thyromegaly Respiratory: normal respiratory effort; no respiratory distress and no labored breathing Auscultation: + diminished lung sounds and + rhonchi (bilaterally); no crackles, no rales and no wheezes Cardiovascular: RRR, no murmur, no edema Gastrointestinal (Abdomen): normal bowel sounds, soft, nontender, no hepatosplenomegaly Musculoskeletal: no cyanosis or clubbing, extremities motor strength 5/5 Skin: no rashes, warm and dry Neurologic: patellar DTR's 2+ bilat, sensation intact and PERRL, EOMI, accommodation nl, no face palsy, no dysarthria Psychiatric: A+Ox3, euthymic affect Lymphatic: no cervical or axillary lymphadenopathy Results & Data Results & Data ([facility]) Vital Signs (Past 12 Hours) Vital Signs Temp Pulse Pulse Resp BP BP Pulse Ox 02/03/20 15:56 36.8 C 85 16 96/54 L 97 02/03/20 14:53 74 02/03/20 13:36 67 16 93 02/03/20 12:09 36.9 C 75 18 151/74 H 97 02/03/20 07:39 36.9 C 61 18 120/75 100 02/03/20 06:59 66 18 95 Laboratory Results Laboratory Results - last 24 hr 02/03/20 02/03/20 02/03/20 01:04 11:56 16:36 POC Glucose 138 H 200 H Urine Color Urine Appearance Urine pH Ur Specific [place] Urine Protein Urine Glucose (UA) Urine Ketones Urine Blood Urine Nitrite Urine Bilirubin Urine Urobilinogen Ur Leukocyte Esterase Urine WBC (Auto) Urine RBC (Auto) U Hyaline Cast (Auto) U Epithel Cells (Auto) Urine Bacteria (Auto) Nasal Screen MRSA (PCR) Negative 02/03/20 Unknown POC Glucose Urine Color Yellow Urine Appearance Turbid A Urine pH 7.5 Ur Specific [place] 1.017 Urine Protein 2+ H Urine Glucose (UA) Negative Urine Ketones Negative Urine Blood 1+ H Urine Nitrite Positive A Urine Bilirubin Negative Urine Urobilinogen Negative Ur Leukocyte Esterase 3+ H Urine WBC (Auto) >30 H Urine RBC (Auto) 0-4 U Hyaline Cast (Auto) 1-5 U Epithel Cells (Auto) 5-10 H Urine Bacteria (Auto) 1+ H Nasal Screen MRSA (PCR) Medications Administered Current Inpatient Medications Acetaminophen (Acetaminophen 500 Mg Tab) 1,000 mg PO Q8H REPLACED BY [facility] Stop: 03/04/20 00:00 Last Admin: 02/03/20 08:11 Dose: 1,000 mg Documented by: Albuterol (Albuterol Hfa 8 Gm Inhaler) 2 puffs INH Q6H PRN PRN Reason: Shortness Of Breath Stop: 03/03/20 23:53 Albuterol (Albuterol 0.5% Neb Soln 2.5 Mg/0.5 Ml Vial) 2.5 mg INH Q6R RANJITH Stop: 03/04/20 00:59 Last Admin: 02/03/20 13:33 Dose: 2.5 mg Documented by: Ascorbic Acid (Ascorbic Acid 500 Mg Tab) 500 mg PO DAILY REPLACED BY [facility] Stop: 03/04/20 08:59 Last Admin: 02/03/20 08:11 Dose: 500 mg Documented by: Aspirin (Aspirin 81 Mg Ectab) 81 mg PO DAILY REPLACED BY [facility] Stop: 03/04/20 08:59 Last Admin: 02/03/20 08:12 Dose: 81 mg Documented by: Diclofenac Sodium (Diclofenac Sod 1% Gel 100 Gm Tube) 2 gm EXT QID REPLACED BY [facility] Stop: 03/03/20 23:53 Last Admin: 02/03/20 13:14 Dose: 2 gm Documented by: Ferrous Gluconate (Ferrous Gluconate 324 Mg Tab) 324 mg PO DAILY RANJITH Stop: 03/04/20 08:59 Last Admin: 02/03/20 08:12 Dose: 324 mg Documented by: Finasteride (Finasteride 5 Mg Tab) 5 mg PO DAILY REPLACED BY [facility] Stop: 03/04/20 08:59 Last Admin: 02/03/20 08:15 Dose: 5 mg Documented by: Fluticasone/Vilanterol (Fluticasone/Vilanterol 100/25mcg 14 Puffs/Inhaler) 1 puffs INH DAILY RANJITH Stop: 03/04/20 08:59 Last Admin: 02/03/20 08:15 Dose: 1 puffs Documented by: Loperamide HCl (Loperamide Hcl 2 Mg Cap) 2 mg PO Q6H PRN PRN Reason: Diarrhea Stop: 03/03/20 23:53 Loratadine (Loratadine 10 Mg Tab) 10 mg PO DAILY RANJITH Stop: 03/04/20 08:59 Last Admin: 02/03/20 08:12 Dose: 10 mg Documented by: Lorazepam (Lorazepam 1 Mg Tab) 1 mg PO BID PRN PRN Reason: Anxiety Stop: 03/04/20 00:00 Melatonin (Melatonin 3 Mg Tab) 3 mg PO HSZ PRN PRN Reason: Sleep Stop: 03/04/20 00:01 Miconazole Nitrate (Miconazole Nitrate Powder 43 Gm) 1 appln EXT PRN PRN PRN Reason: Affected Skin Folds Stop: 03/04/20 16:21 Pantoprazole Sodium (Pantoprazole 40 Mg Tab) 40 mg PO DAILY RANJITH Stop: 03/04/20 08:59 Last Admin: 02/03/20 08:11 Dose: 40 mg Documented by: Polyethylene Glycol (Polyethylene (Miralax) 17 Gm Pack) 17 gm PO DAILY PRN PRN Reason: Constipation Stop: 03/03/20 23:53 Ropinirole HCl (Ropinirole Hcl 1 Mg Tablet) 2 mg PO QPM RANJITH Stop: 03/03/20 23:53 Last Admin: 02/03/20 00:44 Dose: 2 mg Documented by: Ropinirole HCl (Ropinirole Hcl 1 Mg Tablet) 1 mg PO DAILY RANJITH Stop: 03/04/20 08:59 Last Admin: 02/03/20 08:12 Dose: 1 mg Documented by: Tamsulosin HCl (Tamsulosin Hcl 0.4 Mg Cap) 0.4 mg PO DAILY RANJITH Stop: 03/04/20 08:59 Last Admin: 02/03/20 08:12 Dose: 0.4 mg Documented by: Trazodone HCl (Trazodone Hcl 100 Mg Tab) 100 mg PO HS RANJITH Stop: 03/03/20 23:53 Last Admin: 02/03/20 00:45 Dose: 100 mg Documented by: PG Care Time/CCT Total # of Minutes Spent Total Time Spent with Patient: Total time spent is greater than 50% in coordination of care (as documented) at patient's floor/unit and/or counseling patient: Coding Level of Care Code 41917 Subseq Hosp Care Lvl 2 Diagnoses Mucus plugging of bronchi J98.09 Oropharyngeal dysphagia R13.12 Transient confusion R41.0 Left foot drop M21.372 Obstructive sleep apnea G47.33 Restless leg syndrome G25.81 COPD (chronic obstructive pulmonary disease) J44.9 Tracheomalacia J39.8 GERD (gastroesophageal reflux disease) K21.9 BPH (benign prostatic hyperplasia) N40.0
[2020-02-04] MEDS: ALBUTEROL 0.5% NEB SOLN 2.5 MG/0.5 ML VIAL INH SCH ×4 (00:23→19:06)
[2020-02-04] MEDS: ACETAMINOPHEN 500 MG TAB PO SCH ×4 (01:14→23:37)
[2020-02-04] MEDS: ROPINIROLE HCL 1 MG TABLET PO SCH ×2 (08:16→20:27)
[2020-02-04] MEDS: ASCORBIC ACID 500 MG TAB PO SCH (08:16)
[2020-02-04] MEDS: FERROUS GLUCONATE 324 MG TAB PO SCH (08:16)
[2020-02-04] MEDS: PANTOprazole 40 MG TAB PO SCH (08:16)
[2020-02-04] MEDS: ASPIRIN 81 MG ECTAB PO SCH (08:16)
[2020-02-04] MEDS: LORATADINE 10 MG TAB PO SCH (08:16)
[2020-02-04] MEDS: DICLOFENAC SOD 1% GEL 100 GM TUBE EXT SCH ×4 (08:16→20:28)
[2020-02-04] MEDS: TAMSULOSIN HCL 0.4 MG CAP PO SCH (08:16)
[2020-02-04] MEDS: FINASTERIDE 5 MG TAB PO SCH (08:16)
[2020-02-04] MEDS: FLUTICASONE/VILANTEROL 100/25MCG 14 PUFFS/INHALER INH SCH (08:16)
--- NOTE | 2020-02-04 15:59 | Hospitalist Progress Note ---
Date of Service February 04, 2020 Assessment & Plan (1) Mucus plugging of bronchi: Suspect this is what occurred at [facility] causing acute confusion. No definitive evidence of PNA at current time. Procalcitonin minimally elevated. CXR normal. B/l rhonchi present on exam. WBC normal. Ceftriaxone and doxycycline given in ER. Will discontinue further antibiotics pending clinical course - certainly high risk of developing PNA. use vibratory vest BID, tolerating well, mobilizing sputum Flutter valve. Incentive spirometry. should be ready to return to [facility], consult PT/OT awaiting insurance auth change to full admission likely for d/c tomorrow (2) Oropharyngeal dysphagia: Suspected aspirations based on history. Aspiration precautions. Consult SLT - slippery diet, sit upright, aspiration precautions (3) Transient confusion: ? Secondary to hypoxia with mucous plugging as above resolved for two days, no episodes of hypoxia (4) Left foot drop: Secondary to prior stroke. Notable weakness also on right side which his son feels is secondary to his recent immobility. PT/OT evals (5) Obstructive sleep apnea: Use patient's own BiPAP (6) Restless leg syndrome: Continue ropinirole 1 mg p.o. daily, 2 mg p.o. every afternoon (7) COPD (chronic obstructive pulmonary disease): Continue Symbicort 2 puffs inhalation twice daily on hospital formulary equivalent Continue routine nebulizers (8) Tracheomalacia: BiPAP as above. Try to avoid steroids. (9) GERD (gastroesophageal reflux disease): Switch omeprazole for pantoprazole as per hospital formulary (10) BPH (benign prostatic hyperplasia): Continue finasteride 5 mg p.o. daily Admission and Anticipated Discharge Date Admission Date: February 02, 2020 Subjective patient feeling well today, using his vibratory vest, coughing up sputum breathing normally, eating well, no fever/chills no hypoxia noted participating in PT/OT discussed with , will not make it back to [facility] until tomorrow Review of Systems Review of Systems: All systems reviewed & are unremarkable except as noted in Subjective Physical Exam Constitutional: well developed, + thin and comfortable; no acute distress Eyes: PERRL, conjunctivae normal, anicteric sclerae ENMT: external ear and nose normal, oropharynx normal Neck: trachea midline, no thyromegaly Respiratory: normal respiratory effort; no respiratory distress and no labored breathing Auscultation: + diminished lung sounds and + rhonchi (bilaterally); no crackles, no rales and no wheezes Cardiovascular: RRR, no murmur, no edema Gastrointestinal (Abdomen): normal bowel sounds, soft, nontender, no hepatosplenomegaly Musculoskeletal: no cyanosis or clubbing, extremities motor strength 5/5 Skin: no rashes, warm and dry Neurologic: patellar DTR's 2+ bilat, sensation intact and PERRL, EOMI, accommodation nl, no face palsy, no dysarthria Psychiatric: A+Ox3, euthymic affect Lymphatic: no cervical or axillary lymphadenopathy Results & Data Results & Data ([facility]) Vital Signs (Past 12 Hours) Vital Signs Temp Pulse Pulse Resp BP BP Pulse Ox 02/04/20 15:56 36.8 C 57 L 20 120/72 99 02/04/20 13:04 69 20 96 02/04/20 12:55 02/04/20 11:43 156/74 H 02/04/20 11:27 36.8 C 72 18 85/41 L 98 02/04/20 07:37 57 L 20 97 02/04/20 07:21 36.5 C 59 L 18 127/70 100 02/04/20 07:18 60 Pulse Ox 02/04/20 15:56 02/04/20 13:04 02/04/20 12:55 98 02/04/20 11:43 02/04/20 11:27 02/04/20 07:37 02/04/20 07:21 02/04/20 07:18 Laboratory Results Laboratory Results - last 24 hr 02/03/20 02/03/20 02/04/20 16:36 20:12 07:41 POC Glucose 200 H 176 H 128 H COVID-19 Eval Order SARS-CoV-2, RNA, NAAT 02/04/20 02/04/20 02/04/20 11:50 Unknown Unknown POC Glucose 256 H COVID-19 Eval Order Covid19 [facility] SARS-CoV-2, RNA, NAAT NEGATIVE Medications Administered Current Inpatient Medications Acetaminophen (Acetaminophen 500 Mg Tab) 1,000 mg PO Q8H RANJITH Stop: 03/04/20 00:00 Last Admin: 02/04/20 15:45 Dose: 1,000 mg Documented by: Albuterol (Albuterol Hfa 8 Gm Inhaler) 2 puffs INH Q6H PRN PRN Reason: Shortness Of Breath Stop: 03/03/20 23:53 Albuterol (Albuterol 0.5% Neb Soln 2.5 Mg/0.5 Ml Vial) 2.5 mg INH Q6R [facility] Stop: 03/04/20 00:59 Last Admin: 02/04/20 13:01 Dose: 2.5 mg Documented by: Ascorbic Acid (Ascorbic Acid 500 Mg Tab) 500 mg PO DAILY RANJITH Stop: 03/04/20 08:59 Last Admin: 02/04/20 08:16 Dose: 500 mg Documented by: Aspirin (Aspirin 81 Mg Ectab) 81 mg PO DAILY RANJITH Stop: 03/04/20 08:59 Last Admin: 02/04/20 08:16 Dose: 81 mg Documented by: Diclofenac Sodium (Diclofenac Sod 1% Gel 100 Gm Tube) 2 gm EXT QID [facility] Stop: 03/03/20 23:53 Last Admin: 02/04/20 15:46 Dose: 2 gm Documented by: Ferrous Gluconate (Ferrous Gluconate 324 Mg Tab) 324 mg PO DAILY [facility] Stop: 03/04/20 08:59 Last Admin: 02/04/20 08:16 Dose: 324 mg Documented by: Finasteride (Finasteride 5 Mg Tab) 5 mg PO DAILY [facility] Stop: 03/04/20 08:59 Last Admin: 02/04/20 08:16 Dose: 5 mg Documented by: Fluticasone/Vilanterol (Fluticasone/Vilanterol 100/25mcg 14 Puffs/Inhaler) 1 puffs INH DAILY RANJITH Stop: 03/04/20 08:59 Last Admin: 02/04/20 08:16 Dose: 1 puffs Documented by: Loperamide HCl (Loperamide Hcl 2 Mg Cap) 2 mg PO Q6H PRN PRN Reason: Diarrhea Stop: 03/03/20 23:53 Loratadine (Loratadine 10 Mg Tab) 10 mg PO DAILY [facility] Stop: 03/04/20 08:59 Last Admin: 02/04/20 08:16 Dose: 10 mg Documented by: Lorazepam (Lorazepam 1 Mg Tab) 1 mg PO BID PRN PRN Reason: Anxiety Stop: 03/04/20 00:00 Melatonin (Melatonin 3 Mg Tab) 3 mg PO HSZ PRN PRN Reason: Sleep Stop: 03/04/20 00:01 Miconazole Nitrate (Miconazole Nitrate Powder 43 Gm) 1 appln EXT PRN PRN PRN Reason: Affected Skin Folds Stop: 03/04/20 16:21 Pantoprazole Sodium (Pantoprazole 40 Mg Tab) 40 mg PO DAILY RANJITH Stop: 03/04/20 08:59 Last Admin: 02/04/20 08:16 Dose: 40 mg Documented by: Polyethylene Glycol (Polyethylene (Miralax) 17 Gm Pack) 17 gm PO DAILY PRN PRN Reason: Constipation Stop: 03/03/20 23:53 Ropinirole HCl (Ropinirole Hcl 1 Mg Tablet) 2 mg PO QPM RANJITH Stop: 03/03/20 23:53 Last Admin: 02/03/20 20:39 Dose: 2 mg Documented by: Ropinirole HCl (Ropinirole Hcl 1 Mg Tablet) 1 mg PO DAILY RANJITH Stop: 03/04/20 08:59 Last Admin: 02/04/20 08:16 Dose: 1 mg Documented by: Tamsulosin HCl (Tamsulosin Hcl 0.4 Mg Cap) 0.4 mg PO DAILY RANJITH Stop: 03/04/20 08:59 Last Admin: 02/04/20 08:16 Dose: 0.4 mg Documented by: Trazodone HCl (Trazodone Hcl 100 Mg Tab) 100 mg PO HS RANJITH Stop: 03/03/20 23:53 Last Admin: 02/03/20 20:38 Dose: 100 mg Documented by: PG Care Time/CCT Total # of Minutes Spent Total Time Spent with Patient: Total time spent is greater than 50% in coordination of care (as documented) at patient's floor/unit and/or counseling patient: Coding Level of Care Code 11493 Subseq Hosp Care Lvl 2 Diagnoses Mucus plugging of bronchi J98.09 Oropharyngeal dysphagia R13.12 Transient confusion R41.0 Left foot drop M21.372 Obstructive sleep apnea G47.33 Restless leg syndrome G25.81 COPD (chronic obstructive pulmonary disease) J44.9 Tracheomalacia J39.8 GERD (gastroesophageal reflux disease) K21.9 BPH (benign prostatic hyperplasia) N40.0
[2020-02-04] MEDS: TRAZODONE HCL 100 MG TAB PO SCH (20:27)
[2020-02-05] MEDS: ALBUTEROL 0.5% NEB SOLN 2.5 MG/0.5 ML VIAL INH SCH ×2 (00:54→07:07)
[2020-02-05] MEDS: FLUTICASONE/VILANTEROL 100/25MCG 14 PUFFS/INHALER INH SCH (08:29)
[2020-02-05] MEDS: DICLOFENAC SOD 1% GEL 100 GM TUBE EXT SCH ×2 (08:29→13:16)
[2020-02-05] MEDS: ASCORBIC ACID 500 MG TAB PO SCH (08:30)
[2020-02-05] MEDS: FINASTERIDE 5 MG TAB PO SCH (08:30)
[2020-02-05] MEDS: PANTOprazole 40 MG TAB PO SCH (08:30)
[2020-02-05] MEDS: ASPIRIN 81 MG ECTAB PO SCH (08:30)
[2020-02-05] MEDS: ROPINIROLE HCL 1 MG TABLET PO SCH (08:31)
[2020-02-05] MEDS: TAMSULOSIN HCL 0.4 MG CAP PO SCH (08:31)
[2020-02-05] MEDS: LORATADINE 10 MG TAB PO SCH (08:31)
[2020-02-05] MEDS: FERROUS GLUCONATE 324 MG TAB PO SCH (08:31)
[2020-02-05] MEDS: ACETAMINOPHEN 500 MG TAB PO SCH (08:31)
[2020-02-05] MEDS ORDERED: ALBUTEROL 0.083% NEBU SOLN 3 ML VIAL NEB SCH (13:00)
--- NOTE | 2020-02-06 20:55 | Discharge Summary ---
Date of Service February 05, 2020 Admission HPI Per Admitting Provider Hilario Carrington is an 84 year old male who presents to the ER from [facility] due to shortness of breath, increased rhonchi, cough and possible new dysphagia. He was recently admitted to [facility] from January 26- due to inability to cope at home with his [id number] and son who had a recent hernia operation therefore is unable to lift his father. He has had multiple falls in the last year which was the main reason for his last admission. He has COPD with chronic respiratory failure and tracheomalacia. As per his son at bedside he should have been using a vibration vest twice a day however this was not used during his previous hospitalization or his short stay at [facility]. His son was called today that his breathing was much worse and recommended recommended his father be transported to the ER for further workup. One hand over sheet from [facility] mentions concern for new dysphagia although the patient denies this to me - no odynophagia or dysphagia. His son reports he does have to bend his head over when drinking water as sometimes he would aspirate on this but is otherwise on a normal diet. His son feels the patient is close to his baseline at the current time although it was mainly his (patient's [id number]) who saw him during his last admission. The patient denies any fevers, chills. He reports using his BiPAP last night. His main concern is the amount of mucus he is coughing up which is much more. He notes chronic nasal congestion which is no worse than usual. Principal Diagnosis Confusion due to brief episode of hypoxia, likely from mucous plugging Discharge Exam Constitutional well developed, + thin and comfortable; no acute distress Eyes PERRL, conjunctivae normal, anicteric sclerae ENMT external ear and nose normal, oropharynx normal Neck trachea midline, no thyromegaly Respiratory normal respiratory effort; no respiratory distress and no labored breathing Auscultation: + diminished lung sounds and + rhonchi (bilaterally); no crackles, no rales and no wheezes Cardiovascular RRR, no murmur, no edema Gastrointestinal (Abdomen) normal bowel sounds, soft, nontender, no hepatosplenomegaly Musculoskeletal no cyanosis or clubbing, extremities motor strength 5/5 Skin no rashes, warm and dry Neurologic patellar DTR's 2+ bilat, sensation intact and PERRL, EOMI, accommodation nl, no face palsy, no dysarthria Psychiatric A+Ox3, euthymic affect Lymphatic no cervical or axillary lymphadenopathy Discharge Data Allergies Allergy/AdvReac Type Severity Reaction Status Date / Time Cipro Allergy Intermediate unknown Unverified 08/22/16 05:39 ciprofloxacin Allergy Intermediate unknown Unverified 02/02/20 17:47 nitrofurantoin Allergy Intermediate unknown Unverified 02/02/20 17:47 Consultations 02/02/20 18:03 ED Decision to Admit Stat Ordered Studies 02/02/20 14:56 CT head/brain wo con Stat Hospital Course (1) Mucus plugging of bronchi: Suspect this is what occurred at [facility] causing acute confusion. No definitive evidence of PNA at current time. Procalcitonin minimally elevated. CXR normal. B/l rhonchi present on exam. WBC normal. Ceftriaxone and doxycycline given in ER. Will discontinue further antibiotics pending clinical course - certainly high risk of developing PNA. use vibratory vest BID, tolerating well, mobilizing sputum Flutter valve. Incentive spirometry. should be ready to return to [facility], consult PT/OT (2) Oropharyngeal dysphagia: Suspected aspirations based on history. Aspiration precautions. Consult SLT - slippery diet, sit upright, aspiration precautions (3) Transient confusion: ? Secondary to hypoxia with mucous plugging as above resolved for three days, no episodes of hypoxia (4) Left foot drop: Secondary to prior stroke. Notable weakness also on right side which his son feels is secondary to his recent immobility. PT/OT evals (5) Obstructive sleep apnea: Use patient's own BiPAP (6) Restless leg syndrome: Continue ropinirole 1 mg p.o. daily, 2 mg p.o. every afternoon (7) COPD (chronic obstructive pulmonary disease): Continue Symbicort 2 puffs inhalation twice daily on hospital formulary equivalent Continue routine nebulizers (8) Tracheomalacia: BiPAP as above. Try to avoid steroids. (9) GERD (gastroesophageal reflux disease): Switch omeprazole for pantoprazole as per hospital formulary (10) BPH (benign prostatic hyperplasia): Continue finasteride 5 mg p.o. daily Total Time Total Time Spent Total Time Spent (In Minutes): 20 Total Time Includes: Examination of the Patient, Discharge Planning and Medication Reconciliation Discharge Plan Discharge Items Patient Disposition: Transfer Detention Fac Reason For Visit: CONFUSION, DYSPHAGIA Discharge Diagnosis: Transient confusion due to hypoxia Condition on Discharge: Good Goals: needs to use vibratory vest twice a day to mobilize sputum Activity: Resume your previous activity Non-emergency contact: Primary Care Provider Call non-emergency contact if: you have any medication questions and your symptoms worsen Follow-up/Referrals: Sharyn Yen [Primary Care Provider] - Diet: Regular Addtl Attending Provider Instructions: Medications: no changes He had some confusion due to hypoxia, resolved quickly No evidence of pneumonia on chest x-ray, no fever NEEDS TO USE VIBRATORY VEST TWICE A DAY TO HELP MOBILIZE SPUTUM Pending Studies at Discharge: No Stand-Alone Forms: My [facility] Skilled Items Patient informed of condition?: Yes DNR: Yes Discharge Level of Care: Skilled Communicable Disease: No Discharge Prognosis: Stable Lines: None Urinary Catheter: No Medications and DC Order Prescriptions: Continued albuterol sulfate 2.5 mg/0.5 mL solution for nebulization 2.5 mg inhalation Q6H RF: 0 aspirin 81 mg tablet,delayed release (DR/EC) 81 mg PO DAILY RF: 0 loratadine [Claritin] 10 mg tablet 10 mg PO DAILY RF: 0 finasteride 5 mg tablet 5 mg PO DAILY RF: 0 melatonin 5 mg capsule 5 mg PO DAILY PRN (Reason: Sleep) RF: 0 omeprazole 20 mg capsule,delayed release(DR/EC) 20 mg PO DAILY RF: 0 (DME) Oxygen Home Liters Per Minute See Rx Instructions .ROUTE .MEDSUPPLY Qty: 1 RF: 0 polyethylene glycol 3350 17 gram/dose powder 17 g PO DAILY PRN (Reason: Constipation) RF: 0 albuterol sulfate [Proventil HFA] 90 mcg/actuation HFA aerosol inhaler 2 puff inhalation Q6H PRN (Reason: Shortness Of Breath) RF: 0 budesonide-formoterol [Symbicort] 160-4.5 mcg/actuation HFA aerosol inhaler 2 puff inhalation BID RF: 0 tamsulosin 0.4 mg capsule 0.4 mg PO DAILY RF: 0 trazodone 100 mg tablet 100 mg PO HS RF: 0 ropinirole 1 mg Tablet 1 mg PO DAILY RF: 0 ascorbic acid (vitamin C) 500 mg Tablet 500 mg PO DAILY RF: 0 ferrous gluconate 324 mg (36 mg iron) Tablet 324 mg PO DAILY RF: 0 diclofenac sodium [Voltaren] 1 % Gel 2 g EXT QID Qty: 100 RF: 0 lorazepam [Ativan] 1 mg Tablet 1 mg PO BID PRN (Reason: Anxiety) Qty: 5 RF: 0 acetaminophen [Tylenol] 325 mg Tablet 650 mg PO Q12 PRN (Reason: Fever Or Pain) RF: 0 ropinirole 1 mg Tablet 2 mg PO QPM RF: 0 loperamide 2 mg Capsule 2 mg PO Q6H PRN (Reason: Diarrhea) RF: 0 acetaminophen [Tylenol Extra Strength] 500 mg Tablet 1,000 mg PO Q8 RF: 0 Discharge Orders: Discharge Order (Routine); Ordered 02/05/20 Ordered By: Mark Fuentes Admission Data Admit Date/Time: 02/04/20 15:58 Attending Provider: Mark Fuentes Admit Provider: Anson Drew Primary Care Provider: Sharyn Yen Other Providers: Anson Drew ; Sharyn Yen Other Interventions: Discharge Summary Assessment (RN) Last Done: 02/05/20 13:43 Coding Level of Care Code D/C Day Management <30 mins Diagnoses Mucus plugging of bronchi J98.09 Oropharyngeal dysphagia R13.12 Transient confusion R41.0 Left foot drop M21.372 Obstructive sleep apnea G47.33 Restless leg syndrome G25.81 COPD (chronic obstructive pulmonary disease) J44.9 Tracheomalacia J39.8 GERD (gastroesophageal reflux disease) K21.9 BPH (benign prostatic hyperplasia) N40.0
== END 2020-02-05 15:55 | DRG 202 ==
LOC: ED 14:39 → 2N 14:39 → SUATTDRO 20:07 → 2N 22:43